=== PATIENT | female | born 1955 | race Two or more races ===

== ENCOUNTER 2018-08-13 02:21 | Inpatient (IN) | payer MEDICAID, OTHER ==
[~2018-08-13] VITALS: Ht 165.1 cm; Wt 60.8 kg
[2018-08-13] VITALS (17 sets, daily range): BP systolic 116–180; BP diastolic 45–88
[2018-08-13] MEDS ORDERED: SODIUM CHLORIDE 0.9% 1,000 ML IVB ONE (02:30)
[2018-08-13] MEDS ORDERED: LORazepam 2MG/ML-1ML VIAL IV ONE (02:30)
[2018-08-13] MEDS ORDERED: InsuLIN REG 1unit/0.01ml Soln (100units/ml) ONE ×2 (03:12→11:02)
[2018-08-13] MEDS ORDERED: LEVETIRACETAM INJ 1,000 MG in D5W 5% 100 ML IV ONE (03:15)
[2018-08-13] MEDS ORDERED: LEVETIRACETAM 500 MG/5ML INJ IV ONE (03:21)
[2018-08-13] MEDS ORDERED: InsuLIN REG 1unit/0.01ml Soln (100units/ml) IV ONE (03:30)
[2018-08-13 03:33] LABS: Basophils # (auto) 0.1 uL; Eosinophils # (auto) 0 uL; Hemoglobin 9.5 g/dL (12.2-16.2); Red Cell Distribution Width 14.2 % (11.8-14.3)
[2018-08-13 03:34] LABS: Basophils % (auto) 0.9 % (0.0-2.0); Eosinophils % (auto) 0.2 % (0.0-7.0); Hematocrit 33.7 % (36.0-46.0); Lymphocytes # (auto) 1.6 uL; Mean Corpuscular Hemoglobin 31.7 pg (28.0-32.0); Mean Corpuscular Hgb Conc. 28.3 g/dL (32.0-36.0); Mean Corpuscular Volume 112.1 fL (80.0-100.0); Monocytes # (auto) 0.5 uL; Monocytes % (auto) 5.9 % (0.0-12.0); Neutrophils # (auto) 6.1 uL; Platelet Count (auto) 286 10^3/uL (140-450); Red Blood Cells 3.01 10^6/uL (4.0-5.20); White Blood Cell 8.3 10^3/uL (4.4-10.8)
[2018-08-13] MEDS ORDERED: SODIUM CHLORIDE 0.9% 1,000 ML IV ONE ×2 (03:45→04:30)
[2018-08-13] MEDS ORDERED: InsuLIN R (HUMAN) 100 UNITS in SODIUM CHL 0.9% 99 ML IV SCH ×7 (03:49→12:03)
[2018-08-13 03:52] LABS: Alanine Aminotransferase 33 U/L (13-56); Albumin 2.1 g/dL (3.4-5.0); Anion Gap 26 (5-15); Aspartate Aminotransferase 28 U/L (15-37); BUN/Creatinine Ratio 14.3; Blood Alcohol < 3.0 mg/dL (0-5); Blood Urea Nitrogen 40 mg/dL (7-18); Calcium 8.3 mg/dL (8.5-10.1); Chloride 86 mmol/L (98-107); GFR African American 22 mL/min; GFR Non-African American 18 mL/min; Magnesium 2.3 mg/dL (1.6-2.6); Potassium 5.5 mmol/L (3.5-5.1); Sodium 120 mmol/L (136-145)
[2018-08-13] MEDS ORDERED: DEXTROSE (50%) 50ML SYRG IV PRN ×4 (04:00→15:30)
[2018-08-13 04:06] LABS: INR 0.87 (0.9-1.15); Partial Thromboplastin Time 28.5 sec (23.78-33.04); Prothrombin Time 9.4 sec (9.27-12.13)
[2018-08-13 04:26] LABS: Alcohol, Urine < 3.0 mg/dL (0-5); Amphetamine Screen, Urine NEGATIVE (NEGATIVE); Barbiturate Scree,Urine NEGATIVE (NEGATIVE); Benzodiazephine Screen, Urine NEGATIVE (NEGATIVE); Cannabinoid Screen, Urine NEGATIVE (NEGATIVE); Cocaine Screen, Urine NEGATIVE (NEGATIVE); Opiate Scree,Urine NEGATIVE (NEGATIVE); Phencyclidine Screen, Urine NEGATIVE (NEGATIVE)
[2018-08-13 04:27] LABS: Carbon Dioxide 8 mmol/L (21-32)
[2018-08-13 04:28] LABS: Alkaline Phosphatase 130 U/L (45-117); Bilirubin, Total 0.4 mg/dL (0.2-1.0); Glucose 1422 mg/dL (74-106); Total Protein 6.2 g/dL (6.4-8.2)
[2018-08-13 04:45] LABS: Urine Bacteria FEW /hpf (None Seen); Urine Blood 1+ /uL (Negative); Urine Specific Gravity 1.018 (1.001-1.035); Urine WBC 1 /hpf (0 - 5)
[2018-08-13] MEDS: ACCU-CHEK COMFORT CURVE STRIP VI SCH ×11 (04:56→23:47)
[2018-08-13] MEDS ORDERED: ACETAMINOPHEN 500 MG TAB PO PRN (07:00)
[2018-08-13] MEDS ORDERED: MORPHINE SULFATE 4 MG/ML SYR/VIAL IV PRN (07:00)
[2018-08-13] MEDS ORDERED: ONDANSETRON HCL 4 MG/2 ML VIAL IV PRN (07:00)
[2018-08-13] MEDS ORDERED: LORazepam 2MG/ML-1ML VIAL IV PRN (07:00)
[2018-08-13] MEDS ORDERED: HYDROcodone-ACET 5/325MG TAB PO PRN (07:00)
[2018-08-13 09:25] LABS: Eosinophils # (auto) 0 uL; Hemoglobin 8.1 g/dL (12.2-16.2); Lymphocytes # (auto) 1.1 uL; Monocytes # (auto) 0.4 uL; Red Cell Distribution Width 12.9 % (11.8-14.3)
[2018-08-13 09:26] LABS: Basophils # (auto) 0.1 uL; Basophils % (auto) 0.7 % (0.0-2.0); Hematocrit 24.1 % (36.0-46.0); Lymphocytes % (auto) 14.8 % (10.0-50.0); Mean Corpuscular Hemoglobin 32.1 pg (28.0-32.0); Mean Corpuscular Hgb Conc. 33.4 g/dL (32.0-36.0); Mean Corpuscular Volume 95.9 fL (80.0-100.0); Monocytes % (auto) 5.3 % (0.0-12.0); Neutrophils # (auto) 5.8 uL; Neutrophils % (auto) 79.2 % (37.0-80.0); Platelet Count (auto) 204 10^3/uL (140-450); Red Blood Cells 2.51 10^6/uL (4.0-5.20); White Blood Cell 7.3 10^3/uL (4.4-10.8)
[2018-08-13 10:06] LABS: BUN/Creatinine Ratio 13.8; Calcium 7.6 mg/dL (8.5-10.1); Potassium 3.4 mmol/L (3.5-5.1)
[2018-08-13] MEDS ORDERED: SODIUM CHLORIDE 0.9% 1,000 ML IV SCH ×2 (10:46→12:46)
[2018-08-13 14:44] LABS: BUN/Creatinine Ratio 15.9; Calcium 7.9 mg/dL (8.5-10.1); Potassium 3.3 mmol/L (3.5-5.1)
[2018-08-13] MEDS ORDERED: POTASSIUM CHL 20MEQ/100ML 100 ML IV ONE (15:30)
[2018-08-13] MEDS ORDERED: INSULIN LANTUS (GLARGINE) 1 /0.01ml (100units/ml) SC ONE (15:30)
[2018-08-13] MEDS: SODIUM CHLORIDE 0.9% 1,000 ML IV SCH (15:55)
[2018-08-13] MEDS: InsuLIN REG 1unit/0.01ml Soln (100units/ml) SC SCH ×3 (16:00→23:47)
[2018-08-13] MEDS ORDERED: ATOR1TAB PO (16:40)
[2018-08-13] MEDS ORDERED: TRAM-711 PO (16:40)
[2018-08-13] MEDS ORDERED: ASPI81CH43 PO (16:40)
[2018-08-13] MEDS ORDERED: [UNRECOGNIZED DRUG - CODE] SL (16:40)
[2018-08-13] MEDS ORDERED: ONDA-155 PO (16:40)
[2018-08-13] MEDS ORDERED: METH750T3 PO (16:40)
[2018-08-13] MEDS ORDERED: FURO20TA3 PO (16:40)
[2018-08-13] MEDS ORDERED: PRO10T PO (16:40)
[2018-08-13] MEDS ORDERED: IBUP600T27 PO (16:40)
[2018-08-13] MEDS ORDERED: HYDR12.56 PO (16:40)
[2018-08-13] MEDS ORDERED: SITA100T7 PO (16:40)
[2018-08-13] MEDS ORDERED: OME20T PO (16:40)
[2018-08-13] MEDS ORDERED: CHOL20007 PO (16:40)
[2018-08-13] MEDS ORDERED: MECL1TAB42 PO (16:40)
[2018-08-13] MEDS ORDERED: GABA300C11 PO (16:40)
[2018-08-13] MEDS ORDERED: CYAN50008 PO (16:40)
[2018-08-13] MEDS ORDERED: METO10TA3 PO (16:40)
[2018-08-13] MEDS ORDERED: FER325T PO (16:40)
[2018-08-13] MEDS ORDERED: LISI10TA6 PO (16:40)
[2018-08-13] MEDS ORDERED: DOCU-94 PO (16:40)
[2018-08-13] MEDS ORDERED: LISINOPRIL 10 MG TAB PO ONE (19:00)
[2018-08-13] MEDS: LEVETIRACETAM INJ 1,000 MG in D5W 5% 100 ML IV SCH (22:04)
[2018-08-13 22:36] LABS: BUN/Creatinine Ratio 15.6; Calcium 7.8 mg/dL (8.5-10.1); Potassium 3.8 mmol/L (3.5-5.1)
[2018-08-14] MEDS ORDERED: cloNIDine HCL 0.1 MG TAB PO PRN (00:30)
[2018-08-14] MEDS: ACCU-CHEK COMFORT CURVE STRIP VI SCH ×5 (03:34→20:10)
[2018-08-14] MEDS: InsuLIN REG 1unit/0.01ml Soln (100units/ml) SC SCH ×5 (03:34→20:00)
[2018-08-14] MEDS: SODIUM CHLORIDE 0.9% 1,000 ML IV SCH ×2 (04:35→18:10)
[2018-08-14 05:00] VITALS: BP 120/61
[2018-08-14 07:51] LABS: Basophils # (auto) 0 uL; Basophils % (auto) 0.2 % (0.0-2.0); Eosinophils # (auto) 0.1 uL; Hematocrit 24.6 % (36.0-46.0); Hemoglobin 8.4 g/dL (12.2-16.2); Neutrophils % (auto) 62.7 % (37.0-80.0); Red Blood Cells 2.65 10^6/uL (4.0-5.20); Red Cell Distribution Width 13.5 % (11.8-14.3)
[2018-08-14 07:54] LABS: Eosinophils % (auto) 1.1 % (0.0-7.0); Lymphocytes # (auto) 2.5 uL; Lymphocytes % (auto) 30.1 % (10.0-50.0); Mean Corpuscular Hemoglobin 31.8 pg (28.0-32.0); Mean Corpuscular Hgb Conc. 34.2 g/dL (32.0-36.0); Mean Corpuscular Volume 93.1 fL (80.0-100.0); Monocytes # (auto) 0.5 uL; Monocytes % (auto) 5.9 % (0.0-12.0); Neutrophils # (auto) 5.2 uL; Platelet Count (auto) 212 10^3/uL (140-450); White Blood Cell 8.2 10^3/uL (4.4-10.8)
[2018-08-14 08:00] VITALS: BP 106/49
[2018-08-14 08:11] LABS: Albumin 1.5 g/dL (3.4-5.0); Potassium 3.5 mmol/L (3.5-5.1)
[2018-08-14 08:16] LABS: BUN/Creatinine Ratio 14.9; Bilirubin, Total 0.2 mg/dL (0.2-1.0); Total Protein 4.6 g/dL (6.4-8.2)
[2018-08-14] MEDS: LISINOPRIL 10 MG TAB PO SCH (10:22)
[2018-08-14] MEDS: LEVETIRACETAM INJ 1,000 MG in D5W 5% 100 ML IV SCH ×3 (10:30→22:36)
[2018-08-14 10:54] LABS: BUN/Creatinine Ratio 13.8; Calcium 7.8 mg/dL (8.5-10.1); Potassium 3.8 mmol/L (3.5-5.1)
[2018-08-14 12:42] VITALS: BP 150/71
[2018-08-14] MEDS ORDERED: LORazepam 2MG/ML-1ML VIAL IV ONE (13:30)
[2018-08-14] MEDS ORDERED: MECL-87 PO (13:39)
[2018-08-14] MEDS ORDERED: DOCU100T15 PO (13:41)
[2018-08-14 16:41] VITALS: BP 135/71
[2018-08-14 18:01] LABS: BUN/Creatinine Ratio 15.4; Calcium 7.8 mg/dL (8.5-10.1); Potassium 3.6 mmol/L (3.5-5.1)
[2018-08-14 22:00] VITALS: BP 134/72
[2018-08-15] MEDS: InsuLIN REG 1unit/0.01ml Soln (100units/ml) SC SCH ×4 (00:12→14:25)
[2018-08-15] MEDS: ACCU-CHEK COMFORT CURVE STRIP VI SCH ×4 (00:12→12:32)
[2018-08-15 04:59] VITALS: BP 142/65
[2018-08-15 05:42] LABS: Basophils # (auto) 0 uL; Basophils % (auto) 0.3 % (0.0-2.0); Eosinophils # (auto) 0.1 uL; Eosinophils % (auto) 1.7 % (0.0-7.0); Hematocrit 24.9 % (36.0-46.0); Hemoglobin 8.8 g/dL (12.2-16.2); Lymphocytes # (auto) 1.6 uL; Lymphocytes % (auto) 25.5 % (10.0-50.0); Mean Corpuscular Hemoglobin 33.3 pg (28.0-32.0); Mean Corpuscular Hgb Conc. 35.4 g/dL (32.0-36.0); Monocytes # (auto) 0.4 uL; Neutrophils # (auto) 4.3 uL; Neutrophils % (auto) 66.5 % (37.0-80.0); Platelet Count (auto) 232 10^3/uL (140-450); Red Blood Cells 2.65 10^6/uL (4.0-5.20); Red Cell Distribution Width 13.5 % (11.8-14.3); White Blood Cell 6.4 10^3/uL (4.4-10.8)
[2018-08-15 06:01] LABS: Potassium 3.5 mmol/L (3.5-5.1)
[2018-08-15 06:08] LABS: Albumin 1.5 g/dL (3.4-5.0); BUN/Creatinine Ratio 16.4; Bilirubin, Total 0.2 mg/dL (0.2-1.0); Calcium 7.5 mg/dL (8.5-10.1); Phosphorus 2.5 mg/dL (2.5-4.90); Total Protein 4.9 g/dL (6.4-8.2)
[2018-08-15 08:03] VITALS: BP 143/65
[2018-08-15] MEDS: LISINOPRIL 10 MG TAB PO SCH (10:54)
[2018-08-15] MEDS: LEVETIRACETAM INJ 1,000 MG in D5W 5% 100 ML IV SCH (11:30)
[2018-08-15 12:38] VITALS: BP 159/83
[2018-08-15 16:08] VITALS: BP 143/65
== END 2018-08-15 19:20 | disposition home or self-care (01) | DRG 53 ==
LOC: EDBD 02:21 → ER 02:21 → OVERFLOW 02:22 → ICU WEST 09:33 → TELE-WESTW 23:20
PROVIDERS: ADMIT Nurse Practitioner Family; ATTEND Internal Medicine
DX: G40.409 Other generalized epilepsy and epileptic syndromes, not intractable, without status epilepticus (principal); N17.0 Acute kidney failure with tubular necrosis; E11.10 Type 2 diabetes mellitus with ketoacidosis without coma; E44.0 Moderate protein-calorie malnutrition; E87.1 Hypo-osmolality and hyponatremia; I13.10 Hypertensive heart and chronic kidney disease without heart failure, with stage 1 through stage 4 chronic kidney disease, or unspecified chronic kidney disease; E11.22 Type 2 diabetes mellitus with diabetic chronic kidney disease; E11.21 Type 2 diabetes mellitus with diabetic nephropathy; N18.3 Chronic kidney disease, stage 3 (moderate); Z79.4 Long term (current) use of insulin; Z87.81 Personal history of (healed) traumatic fracture; Z79.899 Other long term (current) drug therapy; Z79.82 Long term (current) use of aspirin; Z68.22 Body mass index [BMI] 22.0-22.9, adult
CPT/HCPCS: 36415; 36600; 51702; 70450; 70551; 71045; 76775; 80048; 80053; 80307; 80320; 81001; 82010; 82140; 82306; 82805; 82962; 83036; 83735; 83880; 84100; 84443; 84550; 85025; 85610; 85730; 87081; 96361; 96365; 96367; 96375; 99291; 99292; G0378; J1815; J2405; J3480; J7060

== ENCOUNTER 2018-10-19 06:27 | Inpatient (IN) | payer MEDICAID ==
[~2018-10-19] VITALS: Ht 160 cm; Wt 56.6 kg
[~2018-10-19 06:27] MED LIST: ERGO1CAP23 PO; FER325T PO; FURO20TA PO; INSLANTI SC; LISI10TA6 PO; MECL-82 PO; TRAM-711 PO
[2018-10-19] MEDS ORDERED: LORazepam 2MG/ML-1ML VIAL ONE (06:39)
[2018-10-19] MEDS ORDERED: LORazepam 2MG/ML-1ML VIAL IV ONE ×2 (06:45→07:00)
[2018-10-19] MEDS ORDERED: MIDAZOLAM HCL 1MG/1ML-2 ML VIAL ONE (07:05)
[2018-10-19] MEDS ORDERED: SODIUM CHLORIDE 0.9% 1,000 ML IV ONE ×2 (07:07)
[2018-10-19] MEDS ORDERED: MIDAZOLAM HCL 1MG/1ML-2 ML VIAL IV ONE (07:15)
[2018-10-19] MEDS ORDERED: PROMETHAZINE HCL 25 MG/ML 1ML IV ONE (07:15)
[2018-10-19 07:18] LABS: Urine Bacteria FEW /hpf (None Seen); Urine Blood TRACE /uL (Negative); Urine Specific Gravity 1.011 (1.001-1.035); Urine WBC 1 /hpf (0 - 5)
[2018-10-19 07:29] LABS: Eosinophils # (auto) 0 uL; Eosinophils % (auto) 0.4 % (0.0-7.0); Hematocrit 28.6 % (36.0-46.0); Hemoglobin 8.4 g/dL (12.2-16.2); Lymphocytes # (auto) 0.7 uL; Monocytes # (auto) 0.3 uL
[2018-10-19 07:32] LABS: Basophils # (auto) 0 uL; Basophils % (auto) 0.3 % (0.0-2.0); Lymphocytes % (auto) 8.4 % (10.0-50.0); Mean Corpuscular Hemoglobin 31.8 pg (28.0-32.0); Mean Corpuscular Hgb Conc. 29.3 g/dL (32.0-36.0); Mean Corpuscular Volume 108.5 fL (80.0-100.0); Monocytes % (auto) 4.1 % (0.0-12.0); Neutrophils % (auto) 86.8 % (37.0-80.0); Platelet Count (auto) 353 10^3/uL (140-450); Red Blood Cells 2.64 10^6/uL (4.0-5.20); Red Cell Distribution Width 16.7 % (11.8-14.3)
[2018-10-19 07:47] LABS: Potassium 5.1 mmol/L (3.5-5.1)
[2018-10-19 07:48] LABS: Lactic Acid w/Reflex 5.3 mmol/L (0.4-2.0)
[2018-10-19 07:56] LABS: BUN/Creatinine Ratio 17.7; Bilirubin, Total 0.5 mg/dL (0.2-1.0); Total Protein 6.3 g/dL (6.4-8.2)
[2018-10-19] MEDS ORDERED: SODIUM CHLORIDE 0.9% 2,000 ML IV ONE (08:30)
[2018-10-19] MEDS ORDERED: cefTRIAXone 1GM/50ML D5W 50 ML IV ONE (09:00)
[2018-10-19] MEDS ORDERED: SODIUM BICARBONATE 8.4 % INJ 50ML VIAL IV ONE (09:00)
[2018-10-19] MEDS ORDERED: AZITHROMYCIN 500MG/ 250ML 250 ML IV ONE (09:00)
[2018-10-19] MEDS ORDERED: FUROSEMIDE 20 MG/2 ML VIAL IV ONE (09:00)
[2018-10-19] MEDS ORDERED: InsuLIN R (HUMAN) 100 UNITS in SODIUM CHL 0.9% 99 ML IV SCH (10:34)
[2018-10-19] MEDS ORDERED: ALBUTEROL SULF 2.5 MG/0.5ML(0.5%) NEB SOLN NEB PRN (10:45)
[2018-10-19] MEDS ORDERED: LACTULOSE 20Gm/30ML SOLN PO PRN (10:45)
[2018-10-19] MEDS ORDERED: LORazepam 2MG/ML-1ML VIAL IV PRN (10:45)
[2018-10-19] MEDS ORDERED: NITROGLYCERIN 0.4 MG SL TAB SL PRN (10:45)
[2018-10-19] MEDS ORDERED: LORazepam 0.5 MG TAB PO PRN (10:45)
[2018-10-19] MEDS ORDERED: DEXTROSE (50%) 50ML SYRG IV PRN (10:45)
[2018-10-19] MEDS: LISINOPRIL 10 MG TAB PO SCH (10:50)
[2018-10-19] MEDS ORDERED: LEVOFLOXACIN 500MG 100 ML IV ONE (11:00)
[2018-10-19 11:01] LABS: Amylase 18 U/L (25-115); Lipase 86 U/L (73-393)
[2018-10-19 11:14] LABS: Alcohol, Urine < 3.0 mg/dL (0-5); Amphetamine Screen, Urine NEGATIVE (NEGATIVE); Barbiturate Scree,Urine NEGATIVE (NEGATIVE); Benzodiazephine Screen, Urine NEGATIVE (NEGATIVE); Cannabinoid Screen, Urine NEGATIVE (NEGATIVE); Cocaine Screen, Urine NEGATIVE (NEGATIVE); Opiate Scree,Urine NEGATIVE (NEGATIVE); Phencyclidine Screen, Urine NEGATIVE (NEGATIVE)
[2018-10-19] MEDS: ACCU-CHEK COMFORT CURVE STRIP VI SCH ×8 (11:31→22:38)
[2018-10-19 11:33] LABS: BUN/Creatinine Ratio 19.9; Calcium 7.1 mg/dL (8.5-10.1); Potassium 4.8 mmol/L (3.5-5.1)
[2018-10-19] MEDS: SODIUM CHLORIDE 0.9% 1,000 ML IV SCH (17:30)
[2018-10-19 19:57] VITALS: BP 130/61
[2018-10-19 21:41] LABS: Potassium 3.3 mmol/L (3.5-5.1)
[2018-10-19 21:42] LABS: BUN/Creatinine Ratio 20.2; Calcium 7.4 mg/dL (8.5-10.1)
[2018-10-19] MEDS: CLINDAMYCIN 600MG IV 50 ML IV SCH (22:00)
[2018-10-19] MEDS: TEMAZEPAM 15 MG CAP PO PRN (22:45)
[2018-10-19] MEDS: HYDROcodone-ACET 5/325MG TAB PO PRN (22:45)
[2018-10-19 23:24] LABS: Anion Gap 12 (5-15); BUN/Creatinine Ratio 21.1; Blood Urea Nitrogen 44 mg/dL (7-18); Calcium 7.3 mg/dL (8.5-10.1); Carbon Dioxide 20 mmol/L (21-32); Chloride 106 mmol/L (98-107); GFR African American 31 mL/min; GFR Non-African American 25 mL/min; Glucose 316 mg/dL (74-106); Potassium 3.5 mmol/L (3.5-5.1); Sodium 138 mmol/L (136-145)
[2018-10-20] MEDS: ACCU-CHEK COMFORT CURVE STRIP VI SCH ×8 (00:20→21:03)
[2018-10-20] MEDS: SODIUM CHLORIDE 0.9% 1,000 ML IV SCH (02:36)
[2018-10-20] MEDS ORDERED: DEXTROSE 50% SYRINGE 50 ML IV ONE (05:01)
[2018-10-20] MEDS ORDERED: DEXTROSE (50%) 50ML SYRG IV ONE ×3 (05:30→07:45)
--- NOTE | 2018-10-20 05:30 | NUR ---
Respiratory note: HR 67, RR 13, POX 98%, BS ARE CLEAR. PRN [place] TX NOT INDICATED AT THIS TIME.PT INFORMED TO CALL IF FEELING SOB OR WHEEZING.
[2018-10-20] MEDS ORDERED: ACCU-CHEK COMFORT CURVE STRIP VI SCH (06:00)
[2018-10-20] MEDS: CLINDAMYCIN 600MG IV 50 ML IV SCH (06:19)
[2018-10-20] MEDS ORDERED: InsuLIN REG 1unit/0.01ml Soln (100units/ml) SC ONE (07:00)
[2018-10-20] MEDS ORDERED: DEXTROSE (50%) 50ML SYRG IV PRN (07:15)
[2018-10-20 07:38] LABS: Basophils # (auto) 0 uL; Eosinophils # (auto) 0.1 uL; Hemoglobin 7.6 g/dL (12.2-16.2); Monocytes # (auto) 0.6 uL; Neutrophils # (auto) 4.8 uL; Red Cell Distribution Width 16.1 % (11.8-14.3); White Blood Cell 6.8 10^3/uL (4.4-10.8)
[2018-10-20 07:40] LABS: Basophils % (auto) 0.3 % (0.0-2.0); Eosinophils % (auto) 2.1 % (0.0-7.0); Hematocrit 22.6 % (36.0-46.0); Lymphocytes # (auto) 1.2 uL; Lymphocytes % (auto) 18.3 % (10.0-50.0); Mean Corpuscular Hemoglobin 31.8 pg (28.0-32.0); Mean Corpuscular Hgb Conc. 33.5 g/dL (32.0-36.0); Mean Corpuscular Volume 94.7 fL (80.0-100.0); Neutrophils % (auto) 70.3 % (37.0-80.0); Nucleated Red Blood Cells % 0.1 %; Platelet Count (auto) 238 10^3/uL (140-450); Red Blood Cells 2.39 10^6/uL (4.0-5.20)
[2018-10-20] MEDS: D5W/SOD CHLO 0.9% 1,000 ML IV SCH ×2 (07:44→21:05)
[2018-10-20] MEDS: InsuLIN REG 1unit/0.01ml Soln (100units/ml) SC SCH ×5 (07:45→21:03)
[2018-10-20 07:48] LABS: Albumin 1.3 g/dL (3.4-5.0); Calcium 7.5 mg/dL (8.5-10.1); Potassium 3.1 mmol/L (3.5-5.1)
[2018-10-20 07:51] LABS: Bilirubin, Total 0.1 mg/dL (0.2-1.0); Total Protein 4.5 g/dL (6.4-8.2)
[2018-10-20] MEDS: ENOXAPARIN SOD 30 MG/0.3 ML SYRINGE SC SCH (09:52)
[2018-10-20] MEDS: LISINOPRIL 10 MG TAB PO SCH (09:52)
[2018-10-20] MEDS: PANTOPRAZOLE 40 MG TAB PO SCH (09:52)
[2018-10-20] MEDS ORDERED: LEVOFLOXACIN 500MG 100 ML IV SCH (10:00)
[2018-10-20] MEDS ORDERED: ALBUMIN 25% 100 ML IV ONE (12:00)
[2018-10-20] MEDS ORDERED: FUROSEMIDE 40 MG/4 ML VIAL IV ONE (12:45)
[2018-10-20] MEDS: POTASSIUM CHL 20MEQ/100ML 100 ML IV SCH ×2 (13:37→15:19)
[2018-10-20] MEDS: SODIUM FERR GLUC 62.5MG/5ML 125 MG in SODIUM CHL 0.9% 100 ML IV SCH (13:43)
[2018-10-20 14:43] LABS: Lactic Acid w/Reflex 2.1 mmol/L (0.4-2.0)
[2018-10-20 17:13] LABS: Lactic Acid w/Reflex 2.1 mmol/L (0.4-2.0)
[2018-10-20] MEDS: ALBUMIN 25% 100 ML IV SCH (18:14)
--- NOTE | 2018-10-20 19:15 | NUR ---
PRN MED NEB ASSESSMENT. PT DENIES SOB. NO DISTRESS NOTED AT THIS TIME. POX 100% ON 2L NC HR 68 RR 18 BS ARE CLEAR. TX NOT GIVEN.
[2018-10-20 20:00] VITALS: BP 136/65
--- NOTE | 2018-10-20 20:00 | NUR ---
Telemetry admit from ER MARTA ROONEY admitted to Telemetry unit. Patient oriented to DARNELL PANDYA OCA, primary RN, unit, room, bed, and unit policies regarding patient care and visiting hours. Patient now on continuous telemetry monitoring, tele box #8 and telemetry reading on arrival to unit is sinus rhythm. Patient placed on bedside oxygen, weighed by bedscale and encouraged to call if they need something. All questions and concerns addressed, patient verbalized understanding. at bedside. Bed in lowest locked position, call light within reach, side rails up x2, seizure precautions in place, fall precautions in place. Will continue to monitor q1hr and PRN.
--- NOTE | 2018-10-20 20:45 | NUR ---
MRSA swab sent to lab.
[2018-10-20 21:30] VITALS: BP 136/65
[2018-10-21] MEDS: ACCU-CHEK COMFORT CURVE STRIP VI SCH ×6 (00:14→20:11)
[2018-10-21] MEDS: InsuLIN REG 1unit/0.01ml Soln (100units/ml) SC SCH ×6 (00:14→20:12)
[2018-10-21] MEDS: TEMAZEPAM 15 MG CAP PO PRN (00:20)
[2018-10-21] MEDS ORDERED: GABA300C PO (01:36)
[2018-10-21] MEDS ORDERED: TRAM50TA2 PO (01:36)
[2018-10-21] MEDS: ALBUMIN 25% 100 ML IV SCH ×2 (02:49→10:59)
[2018-10-21 05:00] VITALS: BP 164/70
--- NOTE | 2018-10-21 05:00 | NUR ---
Hospitalist paged for increased BP of 164/70 HR 88. Awaiting call back. Continue care.
--- NOTE | 2018-10-21 06:07 | NUR ---
Hospitalist called back JUDI Thomas updated on patient status. Per AEROPHYSICS ENGINEER Domitila Thomas give 1000 lisinopril on eMAR right now. Continue care
[2018-10-21] MEDS: LISINOPRIL 10 MG TAB PO SCH (06:15)
--- NOTE | 2018-10-21 07:30 | NUR ---
Opening Shift Note Assumed care of patient, asleep on bed, resting comfortably. No S/S of distress/SOB or pain. call light within reach, 2 side rails up and bed in lowest position, will continue to monitor for changes Q1hr and PRN.
--- NOTE | 2018-10-21 08:23 | NUR ---
Respiratory note: ASSESSED PT FOR PRN TX PT WAS AWAKE AND ALERT NO RESP DISTRESS NOTED. HR 96, RR 18, SPO2 99% ON 2L N/C. PT KNOWS TO HAVE RT PAGED IF TX IS NEEDED.
--- NOTE | 2018-10-21 09:15 | NUR ---
PT SEEN BY DR. LA
[2018-10-21] MEDS ORDERED: FUROSEMIDE 40 MG/4 ML VIAL IV SCH (10:00)
[2018-10-21] MEDS: PANTOPRAZOLE 40 MG TAB PO SCH (10:16)
[2018-10-21] MEDS: ENOXAPARIN SOD 30 MG/0.3 ML SYRINGE SC SCH (10:16)
[2018-10-21] MEDS: CHOLECALCIFEROL (VITD3) 1,000 UNIT TAB PO SCH (10:17)
[2018-10-21] MEDS: D5W/SOD CHLO 0.9% 1,000 ML IV SCH (10:25)
[2018-10-21] MEDS: SODIUM FERR GLUC 62.5MG/5ML 125 MG in SODIUM CHL 0.9% 100 ML IV SCH (11:52)
[2018-10-21 12:00] VITALS: BP 148/65
[2018-10-21 12:41] VITALS: BP 156/70
--- NOTE | 2018-10-21 15:35 | NUR ---
PT SEEN BY DR. OBANDO HE ORDERED TO DISCONTINUE BROCK CATHETER.
--- NOTE | 2018-10-21 15:45 | NUR ---
Douglas catheter dc'd Order to discontinue douglas catheter. Douglas dc'd with clean technique following deflation of balloon. Patient tolerated well with no complaints of pain. Continue care.
[2018-10-21 16:54] VITALS: BP 152/70
[2018-10-21] MEDS: FUROSEMIDE 40 MG/4 ML VIAL IV SCH (17:59)
--- NOTE | 2018-10-21 19:30 | NUR ---
Opening Shift Note Assumed care of patient, awake and alert. No S/S of distress/SOB or pain. Instructed on POC and to call for assist PRN. Bed in lowest locked position, call light within reach, side rails up x2, fall precautions in place. Will continue to monitor for changes Q1hr and PRN.
[2018-10-21 22:00] VITALS: BP 161/66
--- NOTE | 2018-10-21 22:15 | NUR ---
Hospitalist paged for BP of 161/66 HR 103. Awaiting call back.
--- NOTE | 2018-10-21 22:50 | NUR ---
Hospitalist called back CONTROL SYSTEMS DESIGNER Domitila Thomas updated on patient's status. New orders received for one time order of lisinopril 10 mg PO. Will continue care.
[2018-10-21] MEDS ORDERED: LISINOPRIL 10 MG TAB PO ONE (23:00)
[2018-10-21] MEDS: traMADol HCL 50 MG TAB PO PRN (23:07)
--- NOTE | 2018-10-21 23:14 | NUR ---
Respiratory note: PT ASSESSED FOR PRN MED NEB TX. PT DENIES ANY SOB. POX IS 96 ON R/A, HR 85, RR 18. NO INDICATION FOR PRN MED NEB TX. PT INFORMED TO HAVE RT PAGED IF NEEDED.
[2018-10-22] MEDS: InsuLIN REG 1unit/0.01ml Soln (100units/ml) SC SCH ×6 (00:30→20:21)
[2018-10-22] MEDS: ACCU-CHEK COMFORT CURVE STRIP VI SCH ×7 (00:30→23:59)
[2018-10-22] MEDS ORDERED: LISI10TA6 PO (04:16)
[2018-10-22 05:00] VITALS: BP 158/83
--- NOTE | 2018-10-22 05:02 | NUR ---
Hospitalist paged for BP of 158/83 HR 88, awaiting call back.
[2018-10-22] MEDS: FUROSEMIDE 40 MG/4 ML VIAL IV SCH ×2 (05:51→17:57)
[2018-10-22 06:54] LABS: Basophils # (auto) 0 uL; Monocytes # (auto) 0.8 uL; Neutrophils # (auto) 3.8 uL
[2018-10-22 06:57] LABS: Basophils % (auto) 0.1 % (0.0-2.0); Eosinophils # (auto) 0.1 uL; Eosinophils % (auto) 2.3 % (0.0-7.0); Hematocrit 23.3 % (36.0-46.0); Hemoglobin 7.9 g/dL (12.2-16.2); Lymphocytes # (auto) 1.2 uL; Lymphocytes % (auto) 20.7 % (10.0-50.0); Mean Corpuscular Hemoglobin 32.4 pg (28.0-32.0); Mean Corpuscular Hgb Conc. 33.7 g/dL (32.0-36.0); Mean Corpuscular Volume 96.1 fL (80.0-100.0); Monocytes % (auto) 13.2 % (0.0-12.0); Neutrophils % (auto) 63.7 % (37.0-80.0); Platelet Count (auto) 260 10^3/uL (140-450); Red Blood Cells 2.43 10^6/uL (4.0-5.20); Red Cell Distribution Width 16.8 % (11.8-14.3)
[2018-10-22 07:18] LABS: Potassium 3.6 mmol/L (3.5-5.1)
[2018-10-22 07:28] LABS: Albumin 2.6 g/dL (3.4-5.0); Bilirubin, Total 0.3 mg/dL (0.2-1.0); Magnesium 2.2 mg/dL (1.6-2.6); Total Protein 5.8 g/dL (6.4-8.2)
[2018-10-22] MEDS: LISINOPRIL 10 MG TAB PO SCH (07:49)
[2018-10-22 08:33] VITALS: BP 173/77
--- NOTE | 2018-10-22 09:00 | NUR ---
Respiratory note: PRN MEDNEB CHECK. PT IN NO RESPIRATORY DISTRESS. TX NOT INDICATED AT THIS TIME. SPO2 92% ON RA HR 92 RR 20 B/S CLEAR/DIM. PT AWARE TO CALL RN AND HAVE THEM PAGE RT IF THEY BECOME SOB. RN AT BEDSIDE.
[2018-10-22] MEDS: CHOLECALCIFEROL (VITD3) 1,000 UNIT TAB PO SCH (09:46)
[2018-10-22] MEDS: ENOXAPARIN SOD 30 MG/0.3 ML SYRINGE SC SCH (09:46)
[2018-10-22] MEDS: PANTOPRAZOLE 40 MG TAB PO SCH (09:46)
[2018-10-22] MEDS: METOPROLOL TARTRATE 25 MG TAB PO SCH ×2 (09:52→22:31)
--- NOTE | 2018-10-22 11:38 | NUR ---
DR. LA AT BEDSIDE MADE AWARE OF THE ELEVATED BLOOD PRESSURE AND BLOOD SUGAR, ORDERED CLONIDINE .1MG PO Q8HRS. ORDER READ BACK AND VERIFIED.
[2018-10-22] MEDS: SODIUM FERR GLUC 62.5MG/5ML 125 MG in SODIUM CHL 0.9% 100 ML IV SCH (12:47)
[2018-10-22 13:00] VITALS: BP 188/84
--- NOTE | 2018-10-22 14:34 | NUR ---
Nutrition Assessment Notes please see attached link for complete assessment Est. Needs BW [id number] kcal (23-25 kcal/kgBW), 57-72 gms pro (0.8-1.0 gms/kgBW r/t elev RFT). Will continue to monitor pertinent labs and reassess nutrient need prn Addendum: 10/22/18 at [address] Amended: Links added.
[2018-10-22] MEDS: cloNIDine HCL 0.1 MG TAB PO PRN (15:59)
[2018-10-22 17:00] VITALS: BP 177/78
--- NOTE | 2018-10-22 17:14 | NUR ---
ELEVATED BP BP 173/69 MMHG AFTER CLONIDINE WAS GIVEN, SPOKE WITH HOSPITALIST SUSSY, HE ORDERED LABETALOL 10MG Q4HRS PRN IV FOR SB>150MMHG AND INCREASE LISINOPRIL TO 20MG DAILY.
[2018-10-22] MEDS ORDERED: LABETALOL HCL 5 MG/ML ML 20ML VIAL IV PRN (17:30)
--- NOTE | 2018-10-22 17:50 | NUR ---
LABETALOL NOT AVAILABLE HOSPITALIST CY MADE AWARE AND ORDERED HYDRALAZINE, ORDER READ BACK AND VERIFIED.
[2018-10-22] MEDS: hydrALAZINE HCL 20 MG/ML VL IV PRN (18:31)
--- NOTE | 2018-10-22 19:30 | NUR ---
Rounds Patient in bathroom, patient tele box disconnected and placed on bedside table. N/C on chair. Instructed patient to pull red cord, Call light cord, in bathroom when done so this RN can assist patient back to bed.
--- NOTE | 2018-10-22 19:35 | NUR ---
Opening Shift Note Assumed care of patient, awake and alert X4. Family at bedside. Patient sitting in chair. Refusing to go in bed. Patient educated on importance of bed, also patient has history of seizures. Patient verbalized understanding continued to refuse. Patient also educated on keeping tele box on while going to bathroom patient stated, "It will fall in toilet." Patient not wearing gown offered to place gown on patient and put tele box in pocket patient refused. Despite continued education patient continues to refuse. No S/S of distress/SOB on 2L N/C, provided long tubing that reaches to bathroom. Reports BLE pain, will administer medication see eMAR. Instructed on POC and to call for assist PRN. call light within reach, Will continue to monitor for changes Q1hr and PRN.
[2018-10-22] MEDS: traMADol HCL 50 MG TAB PO PRN (20:17)
[2018-10-22] MEDS: PROMETHAZINE HCL 25 MG/ML 1ML IV PRN (20:17)
[2018-10-22 22:00] VITALS: BP 139/91
[2018-10-23] VITALS (7 sets, daily range): BP systolic 140–154; BP diastolic 61–72
--- NOTE | 2018-10-23 | NUR ---
Rounds Patient sleeping in chair, respirations even and unlabored, no S/S of distress or SOB. Feet elevated on chair. Will continue to monitor
[2018-10-23] MEDS: InsuLIN REG 1unit/0.01ml Soln (100units/ml) SC SCH ×6 (00:20→20:37)
--- NOTE | 2018-10-23 03:31 | NUR ---
Rounds Patient sleeping in chair, respirations even and unlabored, no S/S of distress or SOB. . Will continue to monitor.
[2018-10-23] MEDS: ACCU-CHEK COMFORT CURVE STRIP VI SCH ×5 (04:18→20:37)
[2018-10-23] MEDS: FUROSEMIDE 40 MG/4 ML VIAL IV SCH ×2 (06:27→18:30)
[2018-10-23 06:48] LABS: Basophils # (auto) 0 uL; Basophils % (auto) 0.4 % (0.0-2.0); Eosinophils # (auto) 0.1 uL; Hemoglobin 7.2 g/dL (12.2-16.2); Monocytes # (auto) 0.7 uL
[2018-10-23 06:50] LABS: Eosinophils % (auto) 2.4 % (0.0-7.0); Hematocrit 21.6 % (36.0-46.0); Lymphocytes # (auto) 1.6 uL; Mean Corpuscular Hemoglobin 32.6 pg (28.0-32.0); Mean Corpuscular Hgb Conc. 33.4 g/dL (32.0-36.0); Mean Corpuscular Volume 97.7 fL (80.0-100.0); Monocytes % (auto) 13.6 % (0.0-12.0); Neutrophils # (auto) 2.5 uL; Neutrophils % (auto) 50.6 % (37.0-80.0); Platelet Count (auto) 208 10^3/uL (140-450); Red Blood Cells 2.21 10^6/uL (4.0-5.20); Red Cell Distribution Width 16.2 % (11.8-14.3)
[2018-10-23 07:00] LABS: Albumin 2.2 g/dL (3.4-5.0); Calcium 7.8 mg/dL (8.5-10.1); Potassium 3.8 mmol/L (3.5-5.1)
[2018-10-23 07:04] LABS: BUN/Creatinine Ratio 18.6; Bilirubin, Total 0.3 mg/dL (0.2-1.0); Total Protein 5.2 g/dL (6.4-8.2)
--- NOTE | 2018-10-23 07:35 | NUR ---
Opening Shift Note Assumed care of patient, awake and alert. Currently sitting up in chair, No S/S of distress/SOB or pain, on 2L via NC. Instructed on POC and to call for assist PRN, call light within reach, will continue to monitor for changes Q1hr and PRN.
[2018-10-23 08:06] LABS: Immunoglobulin G, Serum 663 mg/dL (700-1600)
--- NOTE | 2018-10-23 10:33 | NUR ---
Respiratory note: PRN MED NEB TX NOT INDICATED AT THIS TIME. PATIENT STATES BREATHING COMFORTABLE NO SS OF SOB OR RESP DISTRESS NOTED, SPO2 98% @ 2 L NC, HR 71, RR 16, B/S INSPIRATORY CRACKLES NOTED DEWAYNE T/O.
[2018-10-23] MEDS: CHOLECALCIFEROL (VITD3) 1,000 UNIT TAB PO SCH (10:36)
[2018-10-23] MEDS: PANTOPRAZOLE 40 MG TAB PO SCH (10:36)
[2018-10-23] MEDS: ENOXAPARIN SOD 30 MG/0.3 ML SYRINGE SC SCH (10:37)
[2018-10-23] MEDS: METOPROLOL TARTRATE 50 MG TAB PO SCH ×2 (10:37→21:49)
[2018-10-23] MEDS: LISINOPRIL 20 MG TAB PO SCH (10:37)
[2018-10-23] MEDS: traMADol HCL 50 MG TAB PO PRN ×2 (10:38→23:54)
--- NOTE | 2018-10-23 11:35 | NUR ---
MD DR LA AT BEDSIDE, DISCUSSING POC WITH PT, PT AXOX4, CONT CARE
[2018-10-23] MEDS ORDERED: FUROSEMIDE 100 MG/10ML VIAL IV ONE (11:45)
[2018-10-23] MEDS: SODIUM FERR GLUC 62.5MG/5ML 125 MG in SODIUM CHL 0.9% 100 ML IV SCH (12:16)
--- NOTE | 2018-10-23 20:00 | NUR ---
Opening Shift Note Assumed care of patient, awake and alert, oriented x4. No S/S of distress/SOB or pain. Instructed on POC, verbalized understanding and to call for assist PRN, will continue to monitor for changes Q1hr and PRN. Side rails up x2, bed in lowest locked position, non skid socks on. Continue care.
--- NOTE | 2018-10-23 22:14 | NUR ---
PT IS ON 2L NC, SLEEPING, NO SOB NOTED. PRN TX NOT INDICATED
[2018-10-24] MEDS: InsuLIN REG 1unit/0.01ml Soln (100units/ml) SC SCH ×7 (00:12→23:24)
[2018-10-24] MEDS: ACCU-CHEK COMFORT CURVE STRIP VI SCH ×7 (00:13→23:23)
[2018-10-24 05:00] VITALS: BP 160/68
[2018-10-24 05:24] LABS: Basophils # (auto) 0 uL; Eosinophils # (auto) 0.2 uL; Hemoglobin 7.1 g/dL (12.2-16.2); Lymphocytes # (auto) 1.6 uL; Neutrophils % (auto) 56.5 % (37.0-80.0)
[2018-10-24 05:28] LABS: Basophils % (auto) 0.4 % (0.0-2.0); Eosinophils % (auto) 2.9 % (0.0-7.0); Hematocrit 21.4 % (36.0-46.0); Lymphocytes % (auto) 27.4 % (10.0-50.0); Mean Corpuscular Hemoglobin 32.5 pg (28.0-32.0); Mean Corpuscular Volume 98.6 fL (80.0-100.0); Monocytes # (auto) 0.8 uL; Monocytes % (auto) 12.8 % (0.0-12.0); Neutrophils # (auto) 3.3 uL; Nucleated Red Blood Cells % 0.1 %; Platelet Count (auto) 223 10^3/uL (140-450); Red Blood Cells 2.17 10^6/uL (4.0-5.20); Red Cell Distribution Width 16.7 % (11.8-14.3); White Blood Cell 5.9 10^3/uL (4.4-10.8)
[2018-10-24 05:45] LABS: Albumin 2.3 g/dL (3.4-5.0); BUN/Creatinine Ratio 18.3; Potassium 4.1 mmol/L (3.5-5.1)
[2018-10-24 05:47] LABS: Bilirubin, Total 0.2 mg/dL (0.2-1.0); Total Protein 5.6 g/dL (6.4-8.2)
[2018-10-24] MEDS: FUROSEMIDE 40 MG/4 ML VIAL IV SCH ×2 (05:56→18:36)
--- NOTE | 2018-10-24 07:25 | NUR ---
OPENING SHIFT PATIENT AWAKE AND ALERT, ORIENTED X4. PATIENT SITTING UP IN CHAIR, IN HER OWN CLOTHING. NO S/S OF DISTRESS, SOB, OR PAIN. PATIENT IS ON 2.5 L NASAL CANNULA. PATIENT EDUCATED ON SEIZURE PRECAUTIONS AND FALL SAFETY PRECAUTIONS. PATIENT VERBALIZED UNDERSTANDING. DISCUSSED POC WITH PATIENT, PATIENT VERBALIZED UNDERSTANDING. WILL CONTINUE TO MONITOR Q1 HOUR AND PRN.
--- NOTE | 2018-10-24 08:05 | NUR ---
Respiratory note: ASSESSED PATIENT FOR PRN BREATHING TX. PATIENT WAS AWAKE AND ALERT, PATIENT STATES THAT SHE WOULD LIKE A BREATHING TX, SHE FEELS THAT SHE WOULD BENEFIT FROM IT. PATIENT'S BREATH SOUNDS ARE CLEAR, RR 18, HR 66. ELDA CABALLERO AT BEDSIDE WITH PATIENT. PATIENT IS AWARE TO HAVE RT PAGED IF BREATHING TX IS NEEDED. ELDA CABALLERO IS AWARE. WILL CONTINUE TO MONITOR.
[2018-10-24 08:30] VITALS: BP 122/66
--- NOTE | 2018-10-24 09:38 | NUR ---
DR. BESSIE Sanchez AT BEDSIDE DISCUSSING POC. PATIENT VERBALIZED UNDERSTANDING. WILL FOLLOW M.Susie. ORDERS
--- NOTE | 2018-10-24 10:52 | NUR ---
PATIENT REFUSES CT SCAN PATIENT STATE'S, "IT'S TOO CLOSE TO MY HEAD, YOU'LL HAVE TO KNOCK ME OUT COMPLETELY." PATIENT EDUCATED OF THE RISKS OF REFUSAL AND BENEFITS OF SCAN. PATIENT VERBALIZED UNDERSTANDING. PATIENT OFFERED ANTI-ANXIETY MEDICATION FOR SCAN. PATIENT REFUSED TREATMENT. Juan Alberto MADE AWARE OF SITUATION
[2018-10-24] MEDS: PANTOPRAZOLE 40 MG TAB PO SCH (11:06)
[2018-10-24] MEDS: ENOXAPARIN SOD 30 MG/0.3 ML SYRINGE SC SCH (11:06)
[2018-10-24] MEDS: METOPROLOL TARTRATE 50 MG TAB PO SCH ×2 (11:07→22:06)
[2018-10-24] MEDS: CHOLECALCIFEROL (VITD3) 1,000 UNIT TAB PO SCH (11:07)
[2018-10-24] MEDS: LISINOPRIL 20 MG TAB PO SCH (11:07)
[2018-10-24] MEDS: SODIUM FERR GLUC 62.5MG/5ML 125 MG in SODIUM CHL 0.9% 100 ML IV SCH (12:26)
[2018-10-24 13:24] VITALS: BP 163/58
[2018-10-24] MEDS: cloNIDine HCL 0.1 MG TAB PO PRN (14:03)
--- NOTE | 2018-10-24 14:06 | NUR ---
ELEVATED B/P BLOOD PRESSURE 163/58 mmHG NO S/S OF DISTRESS, SOB, OR PAIN. CLONIDINE GIVEN PER EMAR WILL REASSESS PATIENT'S BLOOD PRESSURE IN ONE HOUR AND CONTINUE TO MONITOR PRN
--- NOTE | 2018-10-24 15:10 | NUR ---
BP REASSESSED BP 154/55 mmHG Patient is asymptomatic. No s/s of distress, sob, or pain. Will continue to monitor q1 hour and prn. Addendum: 10/24/18 at 1850 by Domitila Morelos RN Patient is currently saline locked
[2018-10-24 17:28] VITALS: BP 154/55
--- NOTE | 2018-10-24 18:51 | NUR ---
END OF SHIFT PATIENT RESTING IN CHAIR. FAMILY AT BEDSIDE. NO S/S OF DISTRESS, SOB, OR PAIN. RESPIRATIONS EVEN AND UNLABORED. BED IN LOWEST POSITION, SIDE RAILS UPX2, AND CALL LIGHT WITHIN REACH. WILL ENDORSE CARE TO GAS WELL DRILLING MANAGER R.N.
--- NOTE | 2018-10-24 20:00 | NUR ---
OPENING NOTE PATIENT ALERT AND ORIENTED X 4. PATIENT IS SITTING UP IN CHAIR. IS W/ HER. SHOWS NO S/S MICHAEL DISTRESS. PATIENT IS ON 2.5 L NC. PATIENT WAS EDUCATED ON GLUCOSE CONTROL
--- NOTE | 2018-10-24 20:07 | NUR ---
Respiratory note: PT CURRENTLY ON 2 L/M NC: HR 67, RR 16, SPO2 100% WITH CLEAR/DIM BS T/O. PT IS NOT IN ANY RESPIRATORY DISTRESS. INFORMED PT IF SOB TO CONTACT RESPIRATORY FOR BREATHING TX. WILL CONTINUE TO MONITOR.
[2018-10-24] MEDS: traMADol HCL 50 MG TAB PO PRN (21:01)
[2018-10-24 22:00] VITALS: BP 160/60
[2018-10-25] MEDS: ACCU-CHEK COMFORT CURVE STRIP VI SCH ×5 (04:19→20:00)
[2018-10-25] MEDS: InsuLIN REG 1unit/0.01ml Soln (100units/ml) SC SCH ×5 (04:20→20:45)
[2018-10-25] MEDS: traMADol HCL 50 MG TAB PO PRN (04:22)
[2018-10-25 05:00] VITALS: BP 110/55
[2018-10-25 05:53] LABS: Basophils # (auto) 0 uL; Eosinophils # (auto) 0.1 uL; Mean Corpuscular Hgb Conc. 32.6 g/dL (32.0-36.0); Monocytes # (auto) 0.6 uL; Monocytes % (auto) 12.4 % (0.0-12.0)
[2018-10-25 05:55] LABS: Basophils % (auto) 0.6 % (0.0-2.0); Eosinophils % (auto) 2.6 % (0.0-7.0); Hematocrit 21.6 % (36.0-46.0); Lymphocytes # (auto) 1.4 uL; Lymphocytes % (auto) 28.5 % (10.0-50.0); Mean Corpuscular Volume 101.3 fL (80.0-100.0); Neutrophils # (auto) 2.8 uL; Neutrophils % (auto) 55.9 % (37.0-80.0); Nucleated Red Blood Cells % 0.2 %; Platelet Count (auto) 229 10^3/uL (140-450); Red Blood Cells 2.13 10^6/uL (4.0-5.20); Red Cell Distribution Width 16.5 % (11.8-14.3); White Blood Cell 5.1 10^3/uL (4.4-10.8)
[2018-10-25 06:12] LABS: Hemoglobin 7.1 g/dL (12.2-16.2)
[2018-10-25 06:15] LABS: Potassium 4.1 mmol/L (3.5-5.1)
[2018-10-25 06:20] LABS: Albumin 2.2 g/dL (3.4-5.0); BUN/Creatinine Ratio 19.1; Bilirubin, Total 0.2 mg/dL (0.2-1.0); Calcium 7.8 mg/dL (8.5-10.1); Total Protein 5.6 g/dL (6.4-8.2)
[2018-10-25] MEDS: FUROSEMIDE 40 MG/4 ML VIAL IV SCH (07:58)
--- NOTE | 2018-10-25 08:44 | NUR ---
RT NOTE: PRN BREATHING TX. NOT INDICATED AT THIS TIME. PT. DENIES ANY SOB. PT. HR 67, RR 18, POX 98% 2L N/C. PT. ADVISED TO NOTIFY RN IF BREATHING TX. IS NEEDED. PT. VERBALIZED UNDERSTANDING.
[2018-10-25 09:00] VITALS: BP 178/62
[2018-10-25] MEDS: ENOXAPARIN SOD 30 MG/0.3 ML SYRINGE SC SCH (09:33)
[2018-10-25] MEDS: CHOLECALCIFEROL (VITD3) 1,000 UNIT TAB PO SCH (09:34)
[2018-10-25] MEDS: METOPROLOL TARTRATE 50 MG TAB PO SCH ×2 (09:35→22:36)
[2018-10-25] MEDS: LISINOPRIL 20 MG TAB PO SCH (09:35)
[2018-10-25] MEDS: PANTOPRAZOLE 40 MG TAB PO SCH (09:35)
[2018-10-25] MEDS: SODIUM FERR GLUC 62.5MG/5ML 125 MG in SODIUM CHL 0.9% 100 ML IV SCH (12:00)
[2018-10-25 13:00] VITALS: BP 181/58
--- NOTE | 2018-10-25 13:00 | NUR ---
Dr. Hoang paged regarding elevated blood sugar.
[2018-10-25] MEDS: cloNIDine HCL 0.1 MG TAB PO PRN (14:10)
--- NOTE | 2018-10-25 14:20 | NUR ---
Dr. Hoang returned call - new insulin orders given per DEC.
[2018-10-25] MEDS ORDERED: INSULIN LISPRO (HUMAN) 100 UNITS/ML ML SC ONE (15:00)
--- NOTE | 2018-10-25 15:00 | NUR ---
NEUROLOGY CONSULT RE-CALLED.
--- NOTE | 2018-10-25 15:27 | NUR ---
Nutrition Follow-up Notes Wt.: 7236 kg as of yesterday. Pt's on oxygen via nasal cannula, sitting up on bedside chair, denies any discomfort when rounded this morning. Pt states that she usually weighs around 155 lbs, denies any significant weight change few months sales planning coordinator. Pt's diabetic,with insulin shot once daily, usually has good appetite, eat meals regularly, NKFA and not into any special diets sales planning coordinator. Pt's currently on Consistent Carb diet with adequate PO intake aeb 95% ave. consumed meals (x6) in last 2.5 days. Provide verbal and written nutrition educ. re: current prescribed therapeutic diet as well as FDI for Lasix and she verbalized understanding. Est. Needs BW [id number] kcal (23-25 kcal/kgBW), 57-72 gms pro (0.8-1.0 gms/kgBW r/t elev RFT). Will continue to monitor pertinent labs and reassess nutrient need prn Labs: Gluc 171 H, Cl 108 H, BUN 43 H, Cr 2.25 H, Ca 7.8 L, Tpro 5.6 L, Alb 2.2 L, ALP 170 H; A1C 14.5 H Skin: Bradford scale 20, low risk, skin intact per head mva reactor operator. GI: Pt had 1 BM this morning per head mva reactor operator. PES: Altered nutrition related lab values r/t current/chronic medical condition aeb elev RFT A1C, mod hypoalb, hypocalcemia, hyperglycemia Will continue to monitor PO intake, skin status, pertinent labs and weight trend. F/u in 3 to 5 days. Rec.: 1.) Continue close supervision during meals. 2.) If Albumin level continues trending down, consider Prostat 1 pkt BID. 3.) Refer pt to CDE/RD for further nutrition education and weight monitoring upon discharge. 4.) Continue current plan of care.
[2018-10-25] MEDS: INSULIN LISPRO (HUMAN) 100 UNITS/ML ML SC SCH (17:00)
[2018-10-25 17:47] VITALS: BP 146/51
[2018-10-25] MEDS: BUMETANIDE 1 MG TAB PO SCH (18:00)
--- NOTE | 2018-10-25 19:20 | NUR ---
Opening Shift Note Received report from walter Abrams RN. Assumed care of patient, awake and alert. No S/S of distress/SOB or pain. at bedside. Instructed on POC and to call for assist PRN, will continue to monitor for changes Q1hr and PRN. Bed placed in lowest position, bed alarm turned on and call light within reach.
--- NOTE | 2018-10-25 19:31 | NUR ---
PRN MED NEB ASSESSMENT. PT DENIES SOB. NO DISTRESS NOTED. POX IS 95% ON 2LNC HR 66 RR 20 BS ARE CLEAR AND DIMINISHED. TX NOT GIVEN.
[2018-10-25 22:00] VITALS: BP 114/50
[2018-10-25] MEDS: INSULIN LANTUS (GLARGINE) 1 /0.01ml (100units/ml) SC SCH (23:08)
[2018-10-26] MEDS: ACCU-CHEK COMFORT CURVE STRIP VI SCH ×6 (00:12→20:20)
[2018-10-26 02:38] VITALS: BP 114/50
[2018-10-26] MEDS: InsuLIN REG 1unit/0.01ml Soln (100units/ml) SC SCH ×6 (04:00→20:20)
[2018-10-26] MEDS: traMADol HCL 50 MG TAB PO PRN ×2 (04:57→22:06)
[2018-10-26 05:12] VITALS: BP 133/63
[2018-10-26] MEDS: BUMETANIDE 1 MG TAB PO SCH ×2 (05:49→18:00)
[2018-10-26] MEDS: INSULIN LISPRO (HUMAN) 100 UNITS/ML ML SC SCH ×3 (06:35→17:00)
--- NOTE | 2018-10-26 06:47 | NUR ---
ASSISTED PATIENT TO THE BATHROOM, ALERT ORIENTED NO DISTRESS NOTED AND PATIENT JUST RECEIVED TRAMADOL FOR PAIN TO KNEES. ASSISTED BACK TO CHAIR SITTING COMFORTABLY AT THIS TIME.
--- NOTE | 2018-10-26 08:00 | NUR ---
Opening shift note: Pt. A/O x-4, sitting up in the chair and not exhibiting any s/s of distress nor discomfort noted. Patient encouraged to call if she needs anything.
[2018-10-26 09:00] VITALS: BP 160/57
[2018-10-26] MEDS: ENOXAPARIN SOD 30 MG/0.3 ML SYRINGE SC SCH (10:00)
[2018-10-26] MEDS: METOPROLOL TARTRATE 50 MG TAB PO SCH ×2 (10:00→22:17)
[2018-10-26] MEDS: LISINOPRIL 20 MG TAB PO SCH (10:00)
[2018-10-26] MEDS: PANTOPRAZOLE 40 MG TAB PO SCH (10:00)
[2018-10-26] MEDS: CHOLECALCIFEROL (VITD3) 1,000 UNIT TAB PO SCH (10:00)
[2018-10-26 10:03] LABS: Basophils # (auto) 0 uL; Basophils % (auto) 0.5 % (0.0-2.0); Eosinophils # (auto) 0.1 uL; Lymphocytes # (auto) 1.1 uL; Red Blood Cells 2.23 10^6/uL (4.0-5.20); White Blood Cell 6.8 10^3/uL (4.4-10.8)
[2018-10-26 10:05] LABS: Eosinophils % (auto) 1.2 % (0.0-7.0); Hematocrit 22.6 % (36.0-46.0); Hemoglobin 7.3 g/dL (12.2-16.2); Lymphocytes % (auto) 15.6 % (10.0-50.0); Mean Corpuscular Hemoglobin 32.7 pg (28.0-32.0); Mean Corpuscular Hgb Conc. 32.3 g/dL (32.0-36.0); Mean Corpuscular Volume 101.2 fL (80.0-100.0); Monocytes # (auto) 0.5 uL; Neutrophils # (auto) 5.1 uL; Neutrophils % (auto) 74.7 % (37.0-80.0); Nucleated Red Blood Cells % 0.1 %; Platelet Count (auto) 210 10^3/uL (140-450); Red Cell Distribution Width 16.6 % (11.8-14.3)
[2018-10-26 10:16] LABS: Albumin 2.1 g/dL (3.4-5.0); BUN/Creatinine Ratio 20.3; Calcium 7.6 mg/dL (8.5-10.1); Potassium 4.3 mmol/L (3.5-5.1)
[2018-10-26 10:19] LABS: Bilirubin, Total 0.2 mg/dL (0.2-1.0); Total Protein 5.5 g/dL (6.4-8.2)
[2018-10-26] MEDS: ACETAMINOPHEN 500 MG TAB PO PRN (11:50)
--- NOTE | 2018-10-26 11:55 | NUR ---
Patient's IV in right forearm is showing signs of infiltration and is warm to touch. Patient is refusing another IV insertion at this time. Will attempt later. IV removed and patient given a cold compress to apply to left arm IV site at this time.
[2018-10-26] MEDS: SODIUM FERR GLUC 62.5MG/5ML 125 MG in SODIUM CHL 0.9% 100 ML IV SCH (12:00)
[2018-10-26 17:51] VITALS: BP 119/43
--- NOTE | 2018-10-26 19:00 | NUR ---
Closing Shift Note: Care endorsed to Sarabjit. Patient A/O x-4, resting in bed. Bed in low position with call light in reach. Patient not exhibiting any s/s of distress nor discomfort at this time. Patient encouraged to call if she needs anything.
--- NOTE | 2018-10-26 19:30 | NUR ---
Opening Shift Note Received report from walter Abrams RN. Assumed care of patient, awake and alert and sitting up in chair. No S/S of distress/SOB or pain. Instructed on POC and to call for assist PRN, will continue to monitor for changes Q1hr and PRN.
--- NOTE | 2018-10-26 20:06 | NUR ---
DISCHARGE PRESCRIPTIONS CALLED IN TO [facility], [place], [place]. PER DR. LA. [facility] SEE MED LIST ON CHART.
--- NOTE | 2018-10-26 20:12 | NUR ---
RT NOTE: PT ASSESSED BY RT @ THIS TIME. PRN MED NEB TX NOT INDICATED. SP02 100% ON 2L NASAL CANNULA, HR 64, CLEAR/DIMINISHED BS. NO SOB OR DISTRESS NOTED.
[2018-10-26 22:00] VITALS: BP 135/60
[2018-10-26] MEDS: INSULIN LANTUS (GLARGINE) 1 /0.01ml (100units/ml) SC SCH (22:18)
[2018-10-27] MEDS: InsuLIN REG 1unit/0.01ml Soln (100units/ml) SC SCH ×6 (01:07→20:00)
[2018-10-27] MEDS: ACCU-CHEK COMFORT CURVE STRIP VI SCH ×6 (04:27→20:00)
[2018-10-27 05:50] VITALS: BP 151/69
[2018-10-27] MEDS: BUMETANIDE 1 MG TAB PO SCH ×2 (07:07→18:09)
[2018-10-27] MEDS: INSULIN LISPRO (HUMAN) 100 UNITS/ML ML SC SCH ×3 (07:07→18:09)
[2018-10-27 08:00] VITALS: BP 151/69
--- NOTE | 2018-10-27 08:00 | NUR ---
Opening Shift Note Assumed care of patient, awake and alert. Pt denies pain or discomfort at this time. V.S.S., resp even, unlabored. Pt refused to have blood sugar checked at this time, stating "she just gave me Insulin so there is no reason to check my sugar." Pt instructed on POC and to call for assist PRN, will continue to monitor for changes Q1hr and PRN.
[2018-10-27 09:32] VITALS: BP 116/45
[2018-10-27] MEDS: CHOLECALCIFEROL (VITD3) 1,000 UNIT TAB PO SCH (10:24)
[2018-10-27] MEDS: LISINOPRIL 20 MG TAB PO SCH (10:25)
[2018-10-27] MEDS: METOPROLOL TARTRATE 50 MG TAB PO SCH ×2 (10:25→22:01)
[2018-10-27] MEDS: PANTOPRAZOLE 40 MG TAB PO SCH (10:26)
--- NOTE | 2018-10-27 10:30 | NUR ---
Pt c/o leg pain "due to swelling". Mingo pulled from pyxsis. Pt states that "[place] makes me go crazy". [place] wasted per protocol. Ultram given at this time. Pt continues to refuse to have IV access due to "swelling in my arms".
[2018-10-27] MEDS: ENOXAPARIN SOD 30 MG/0.3 ML SYRINGE SC SCH (10:36)
[2018-10-27] MEDS: HYDROcodone-ACET 5/325MG TAB PO PRN ×2 (10:36→10:43)
[2018-10-27] MEDS: traMADol HCL 50 MG TAB PO PRN ×2 (10:40→22:00)
--- NOTE | 2018-10-27 12:00 | NUR ---
Pt informed of importance of having adequate IV access due to diagnosis of possible seizures. And, hospital protocol for pt to have IV access when on compliance monitor. Pt agreed to have IV started. IV insertion IV access obtained, via clean sterile technique by inserting 22 gauge catheter at left AC after one attempt.. IV secured properly. No trauma to site. Patient tolerated procedure well.
--- NOTE | 2018-10-27 12:34 | NUR ---
RT NOTE: PT. OFF O2, AT REST POX 91%. PT. AMBULATED APROX. 40FT AND THEN PT. COMPLAINED OF HER LEGS HURTING. PT. AMBULATED BACK TO CHAIR WITH WALKER. POX 90% THEN WENT UP TO 94%. PT. COMPLAINED OF DIZZINESS AND WANTED HER O2 BACK ON. PT. PLACED BACK ON O2. DR. ORTIZ AND ELDA FISH.
[2018-10-27] MEDS: SODIUM FERR GLUC 62.5MG/5ML 125 MG in SODIUM CHL 0.9% 100 ML IV SCH (13:12)
[2018-10-27 13:48] VITALS: BP 156/64
[2018-10-27 17:12] VITALS: BP 132/64
--- NOTE | 2018-10-27 18:00 | NUR ---
Pt sitting up in chair at bedside. No further c/o pain or discomfort. IV patent, site clear to left AC. Need for security monitor reinforced.
--- NOTE | 2018-10-27 19:40 | NUR ---
RECEIVED AWAKE, ALERT, ORIENTED X4. NO S/S OF RESPIRATORY DISTRESS. PATIENT REFUSED TO HAVE A MALE NURSE, CHARGE NURSE INFORMED
--- NOTE | 2018-10-27 19:50 | NUR ---
CARE ENDORSED TO ELDA CAVAZOS
--- NOTE | 2018-10-27 20:00 | NUR ---
Respiratory note: PT ASSESSED FOR PRN MED NEB TX. HR 65, RR 18, SPO2 98% ON 2L NC, BS CLEAR/DIMINISHED. NO SIGNS OF ANY RESPIRATORY DISTRESS NOTED. ADVISED PT TO PLEASE CALL IF NEEDED.
[2018-10-27] MEDS: TEMAZEPAM 15 MG CAP PO PRN (21:59)
[2018-10-27] MEDS: INSULIN LANTUS (GLARGINE) 1 /0.01ml (100units/ml) SC SCH (22:01)
[2018-10-27 22:05] VITALS: BP 146/66
--- NOTE | 2018-10-28 00:43 | NUR ---
PT'S BG 65, PT ASYMPTOMATIC, REFUSED SNACK AT BEDTIME, NOW RECEIVED OJ 240 ML AND ATE A FULL SANDWICH
[2018-10-28] MEDS: ACCU-CHEK COMFORT CURVE STRIP VI SCH ×6 (04:00→20:00)
[2018-10-28] MEDS: InsuLIN REG 1unit/0.01ml Soln (100units/ml) SC SCH ×6 (04:00→20:00)
[2018-10-28 04:46] VITALS: BP 141/85
[2018-10-28] MEDS: BUMETANIDE 1 MG TAB PO SCH ×2 (06:09→17:57)
[2018-10-28] MEDS: INSULIN LISPRO (HUMAN) 100 UNITS/ML ML SC SCH ×3 (06:36→17:51)
[2018-10-28 07:09] LABS: BUN/Creatinine Ratio 19.3; Calcium 7.8 mg/dL (8.5-10.1)
--- NOTE | 2018-10-28 07:43 | NUR ---
NEUROLOGY CONSULT RE: SEIZURES CALLED IN FOR DR. SHEFFIELD THRU PBX.
--- NOTE | 2018-10-28 08:00 | NUR ---
Opening Shift Note Assumed care of patient, awake and alert. No S/S of distress/SOB or pain. Instructed on POC and to call for assist PRN, will continue to monitor for changes Q1hr and PRN.
[2018-10-28 09:00] VITALS: BP 112/52
--- NOTE | 2018-10-28 09:47 | NUR ---
PT ASSESSED FOR PRN HHN TX. PT IS ON 2LNC, SPO2 98%, HR 63, RR 16. NO S/S OF RESPIRATORY DISTRESS. WILL CONTINUE TO MONITOR.
[2018-10-28] MEDS: PANTOPRAZOLE 40 MG TAB PO SCH (09:52)
[2018-10-28] MEDS: CHOLECALCIFEROL (VITD3) 1,000 UNIT TAB PO SCH (09:52)
[2018-10-28] MEDS: ENOXAPARIN SOD 30 MG/0.3 ML SYRINGE SC SCH (09:53)
[2018-10-28] MEDS: METOPROLOL TARTRATE 50 MG TAB PO SCH ×2 (10:00→22:00)
[2018-10-28] MEDS: LISINOPRIL 20 MG TAB PO SCH (10:00)
--- NOTE | 2018-10-28 10:55 | NUR ---
O2 sat on room air-93%. Dr. Gaitan aware. Will continue care.
--- NOTE | 2018-10-28 11:54 | NUR ---
Neurology Consult Dr. Carver at bedside.
[2018-10-28 13:00] VITALS: BP 175/79
[2018-10-28] MEDS: SODIUM FERR GLUC 62.5MG/5ML 125 MG in SODIUM CHL 0.9% 100 ML IV SCH (13:33)
[2018-10-28] MEDS: traMADol HCL 50 MG TAB PO PRN ×2 (14:31→22:43)
[2018-10-28 17:00] VITALS: BP 153/69
[2018-10-28 22:00] VITALS: BP 162/71
[2018-10-28] MEDS: INSULIN LANTUS (GLARGINE) 1 /0.01ml (100units/ml) SC SCH (22:40)
[2018-10-29] VITALS (7 sets, daily range): BP systolic 129–177; BP diastolic 68–79
--- NOTE | 2018-10-29 01:00 | NUR ---
PT SEEN SLEEPING IN CHAIR ON 3L NC, SPO2 100%, BS CLEAR AND DIMINISHED. NO PRN NEB TX INDICATED AT THIS TIME.
[2018-10-29] MEDS: PROMETHAZINE HCL 25 MG/ML 1ML IV PRN (01:58)
--- NOTE | 2018-10-29 02:09 | NUR ---
Pt sits in chair to sleep, wakes up with anxiety and nausea; given promethazine with good relief. for BG 79 given 200 ml oj, tolerated well, .for anxiety given lorazepam 0.5 mg po. pt encouraged to lay in bed for some time, but refuses to do so.
[2018-10-29] MEDS: InsuLIN REG 1unit/0.01ml Soln (100units/ml) SC SCH ×7 (02:28→23:51)
[2018-10-29] MEDS: ACCU-CHEK COMFORT CURVE STRIP VI SCH ×7 (02:30→23:51)
[2018-10-29] MEDS: INSULIN LISPRO (HUMAN) 100 UNITS/ML ML SC SCH ×3 (06:27→17:00)
--- NOTE | 2018-10-29 06:28 | NUR ---
pt's repeat bg is 107, Humalog 8u held this am due to pt's tendency to eat less and run lower glucose levels.
--- NOTE | 2018-10-29 07:33 | NUR ---
RT NOTE: WENT TO PTS ROOM TO ASSESS FOR PRN BREATHING TX. NO TX NEEDED AT THIS TIME. PT IS ON 4 LPM NC, SPO2 99%, HR 68, BREATH SOUNDS CLEAR. WILL CONTINUE TO MONITOR PT.
--- NOTE | 2018-10-29 08:00 | NUR ---
OPENING NOTE PATIENT IN CHAIR AT BEDSIDE, EATING BREAKFAST. NO S/S OF DISTRESS. PATIENT EDUCATED ON FLUID RETENTION AND THE IMPORTANCE OF ELEVATING HER FEET. PATIENT VERBALIZED UNDERSTANDING. PATIENT STATES SHE IS UNABLE TO GET IN THE BED BECAUSE IT MAKES HER SHORT OF BREATH EVEN WITH THE HEAD OF BED UP. WILL CONTINUE TO MONITOR PATIENT.
[2018-10-29] MEDS: BUMETANIDE 1 MG TAB PO SCH ×2 (08:38→17:11)
--- NOTE | 2018-10-29 10:00 | NUR ---
MD LA ORDERS TO RECONSULT NEPHROLOGY. WILL FOLLOW THROUGH. Addendum: 10/29/18 at 1405 by ANDREW WEBSTER RN ORDERS FROM MD LA AT 0325
[2018-10-29] MEDS: PANTOPRAZOLE 40 MG TAB PO SCH (10:31)
[2018-10-29] MEDS: METOPROLOL TARTRATE 50 MG TAB PO SCH ×2 (10:32→22:12)
[2018-10-29] MEDS: LISINOPRIL 20 MG TAB PO SCH (10:32)
[2018-10-29] MEDS: CHOLECALCIFEROL (VITD3) 1,000 UNIT TAB PO SCH (10:32)
[2018-10-29] MEDS: ENOXAPARIN SOD 30 MG/0.3 ML SYRINGE SC SCH (10:32)
[2018-10-29 12:04] LABS: Albumin 2.3 g/dL (3.4-5.0); BUN/Creatinine Ratio 18.2; Basophils # (auto) 0 uL; Calcium 7.8 mg/dL (8.5-10.1); Eosinophils # (auto) 0.1 uL; Hemoglobin 7.4 g/dL (12.2-16.2); Lymphocytes # (auto) 1.4 uL; Monocytes # (auto) 0.7 uL; Neutrophils # (auto) 3.4 uL; Potassium 4.5 mmol/L (3.5-5.1)
[2018-10-29 12:07] LABS: Basophils % (auto) 0.9 % (0.0-2.0); Bilirubin, Total 0.2 mg/dL (0.2-1.0); Hematocrit 22.5 % (36.0-46.0); Lymphocytes % (auto) 24.7 % (10.0-50.0); Mean Corpuscular Hemoglobin 33.4 pg (28.0-32.0); Mean Corpuscular Hgb Conc. 33.2 g/dL (32.0-36.0); Mean Corpuscular Volume 100.7 fL (80.0-100.0); Monocytes % (auto) 11.9 % (0.0-12.0); Neutrophils % (auto) 60.5 % (37.0-80.0); Nucleated Red Blood Cells % 0.2 %; Platelet Count (auto) 255 10^3/uL (140-450); Red Blood Cells 2.23 10^6/uL (4.0-5.20); Red Cell Distribution Width 16.7 % (11.8-14.3); Total Protein 6.1 g/dL (6.4-8.2); White Blood Cell 5.5 10^3/uL (4.4-10.8)
[2018-10-29] MEDS: SODIUM FERR GLUC 62.5MG/5ML 125 MG in SODIUM CHL 0.9% 100 ML IV SCH (12:18)
[2018-10-29] MEDS: traMADol HCL 50 MG TAB PO PRN ×2 (12:25→22:58)
--- NOTE | 2018-10-29 13:36 | NUR ---
PATIENT STATING SHE IS HAVING A "PANIC ATTACK." PATIENT STATES SHE IS SHORT OF BREATH BECAUSE SHE TOOK OF HER OXYGEN TO GO TO THE RESTROOM. PATIENT INSTRUCTED TO TAKE DEEP BREATHS THROUGH THE NOSE TO GET THE OXYGEN. PATIENT REFUSING MEDICATION FOR ANXIETY AT THIS TIME. PATIENT CALM AT THIS TIME. WILL CONTINUE TO MONITOR.
--- NOTE | 2018-10-29 15:07 | NUR ---
Nutrition Follow-up Notes Wt.: 70.5 kg Pt's awake and oriented when rounded this am. per pt no N/V and with good appetite. pt is currently on CCHO 60 gm diet with adqute Po of 75% x 4 per RN doc Est. Needs BW [id number] kcal (23-25 kcal/kgBW), 57-72 gms pro (0.8-1.0 gms/kgBW r/t elev RFT). Will continue to monitor pertinent labs and reassess nutrient need prn Labs: BUN 49 H, CREAT 2.54 H, ALB 2.1 L, CA 7.8 L. Skin: Bradford scale 20, low risk, skin intact per tipple worker. GI: Pt had 1 BM yesterday per tipple worker. PES: Altered nutrition related lab values r/t current/chronic medical condition aeb elev RFT A1C, mod hypoalb, hypocalcemia, hyperglycemia Will continue to monitor PO intake, skin status, pertinent labs and weight trend. F/u in 3 to 5 days. Rec.: 1.) Continue close supervision during meals. 2.) If Albumin level continues trending down, consider Prostat 1 pkt BID. 3.) Refer pt to CDE/RD for further nutrition education and weight monitoring upon discharge. 4.) Continue current plan of care.
--- NOTE | 2018-10-29 17:01 | NUR ---
PATIENT STATES HER SUGAR WILL CONTINUE TO DROP, PATIENT REQUESTING JUICE. CURRENTLY BLOOD SUGAR AT 95, MEDICATIONS HELD AT THIS TIME. ONE JUICE GIVEN PER PATIENT REQUEST. WILL CONTINUE TO MONITOR AND INFORM SHUTTLE VENEERING SUPERVISOR.
--- NOTE | 2018-10-29 18:38 | NUR ---
Respiratory note: PT ALERT AND ORIENTED. PT HR 73 RR 18 SPO2 100% ON 5LPM NC BS CLEAR DIMINISHED BILATERALLY. FIO2 TITRATED TO 3LPM NC. PRN MED NEB TX NOT INDICATED AT THIS TIME. PT REMAINS STABLE WITH NO RESPIRATORY DISTRESS NOTED. WILL CONTINUE TO MONITOR PT ORDERED.
--- NOTE | 2018-10-29 19:35 | NUR ---
OPENING SHIFT NOTE RECEIVED REPORT FROM DAYSHIFT RN. PATIENT SITTING UPRIGHT IN CHAIR AT BEDSIDE WITH EYES CLOSED. NO S/S OF DISTRESS OR SOB, NO PAIN NOTED OR REPORTED. PT A/O X4, AMBULATORY, ON 3L NC. UPDATED PT ON POC, VERBALIZED UNDERSTANDING. BED LOCKED IN LOW POSITION, CALL LIGHT WITHIN REACH. WILL CONTINUE TO MONITOR PT Q1HR AND PRN.
[2018-10-29] MEDS: INSULIN LANTUS (GLARGINE) 1 /0.01ml (100units/ml) SC SCH (22:15)
[2018-10-30] MEDS: InsuLIN REG 1unit/0.01ml Soln (100units/ml) SC SCH ×6 (04:00→20:35)
[2018-10-30] MEDS: ACCU-CHEK COMFORT CURVE STRIP VI SCH ×5 (04:04→20:36)
[2018-10-30 05:18] VITALS: BP 130/79
[2018-10-30] MEDS: INSULIN LISPRO (HUMAN) 100 UNITS/ML ML SC SCH ×3 (05:54→16:50)
[2018-10-30] MEDS: BUMETANIDE 1 MG TAB PO SCH ×2 (05:54→16:52)
[2018-10-30 06:33] LABS: Basophils # (auto) 0 uL; Eosinophils # (auto) 0.1 uL; Hemoglobin 7.1 g/dL (12.2-16.2); Lymphocytes % (auto) 31.8 % (10.0-50.0); Mean Corpuscular Volume 99.7 fL (80.0-100.0); Monocytes # (auto) 0.7 uL; Nucleated Red Blood Cells % 0.1 %; Red Blood Cells 2.18 10^6/uL (4.0-5.20); Red Cell Distribution Width 16.9 % (11.8-14.3)
[2018-10-30 06:39] LABS: Basophils % (auto) 0.4 % (0.0-2.0); Eosinophils % (auto) 1.4 % (0.0-7.0); Hematocrit 21.8 % (36.0-46.0); Lymphocytes # (auto) 1.6 uL; Mean Corpuscular Hemoglobin 32.6 pg (28.0-32.0); Mean Corpuscular Hgb Conc. 32.7 g/dL (32.0-36.0); Monocytes % (auto) 14.2 % (0.0-12.0); Neutrophils # (auto) 2.7 uL; Neutrophils % (auto) 52.2 % (37.0-80.0); Platelet Count (auto) 234 10^3/uL (140-450); White Blood Cell 5.1 10^3/uL (4.4-10.8)
[2018-10-30 06:51] LABS: Potassium 4.1 mmol/L (3.5-5.1)
[2018-10-30 07:00] LABS: Albumin 2.3 g/dL (3.4-5.0); BUN/Creatinine Ratio 18.2; Bilirubin, Total 0.2 mg/dL (0.2-1.0); Calcium 8.1 mg/dL (8.5-10.1); Total Protein 5.8 g/dL (6.4-8.2)
[2018-10-30] MEDS: cloNIDine HCL 0.1 MG TAB PO PRN (08:30)
--- NOTE | 2018-10-30 08:39 | NUR ---
pt assessed for prn hhn tx. pt is on 3lnc, spo2 97%, hr 81, rr 18. no s/s of respiratory distress. breathing tx not indicated at this time. will continue to monitor.
[2018-10-30 09:00] VITALS: BP 169/77
[2018-10-30] MEDS: PANTOPRAZOLE 40 MG TAB PO SCH (09:39)
[2018-10-30] MEDS: CHOLECALCIFEROL (VITD3) 1,000 UNIT TAB PO SCH (09:39)
[2018-10-30] MEDS: ENOXAPARIN SOD 30 MG/0.3 ML SYRINGE SC SCH (09:40)
[2018-10-30] MEDS: LISINOPRIL 20 MG TAB PO SCH (09:47)
[2018-10-30] MEDS: METOPROLOL TARTRATE 50 MG TAB PO SCH ×2 (09:47→22:40)
[2018-10-30 13:00] VITALS: BP 147/52
[2018-10-30] MEDS: SODIUM FERR GLUC 62.5MG/5ML 125 MG in SODIUM CHL 0.9% 100 ML IV SCH (13:12)
--- NOTE | 2018-10-30 14:00 | NUR ---
PATIENT NPO NOW PENDING ABDOMINAL ULTRASOUND.
[2018-10-30 17:00] VITALS: BP 148/99
--- NOTE | 2018-10-30 18:40 | NUR ---
Ultrasound at bedside.
--- NOTE | 2018-10-30 19:00 | NUR ---
PATIENT GIVEN DINNER TRAY. NO LONGER NPO.
--- NOTE | 2018-10-30 19:45 | NUR ---
OPENING SHIFT NOTE Received report from RN. Patient is sitting in chair at bedside. Patient is A&O X's 4 with no distress noted. Patient reports feeling mild SOB at this moment from ambulating back from the bathroom. O2 is being administered via N.C @ 4L/min. Educated patient on POC and to use call light when needing to ambulate and for other assistance. Patient verbalized understanding. Will continue to monitor and round hourly/PRN.
--- NOTE | 2018-10-30 21:12 | NUR ---
Respiratory note: PT CURRENTLY ON 4 L/M NC: HR 74, RR 16, SPO2 97% WITH CLEAR/DIM T/O. PT SHOWS NO S/S OF ANY RESPIRATORY DISTRESS. INFORMED PT IF SOB TO CONTACT RESPIRATORY FOR BREATHING TX. WILL CONTINUE TO MONITOR.
--- NOTE | 2018-10-30 21:30 | NUR ---
DOWNGRADE TO M/S Orders for downgrade to M/S. Tele monitor was removed. Will continue to monitor patient.
[2018-10-30 22:34] VITALS: BP 176/73
[2018-10-30] MEDS: INSULIN LANTUS (GLARGINE) 1 /0.01ml (100units/ml) SC SCH (22:41)
[2018-10-30] MEDS: traMADol HCL 50 MG TAB PO PRN (22:41)
[2018-10-31] MEDS: ACCU-CHEK COMFORT CURVE STRIP VI SCH ×6 (00:12→20:37)
[2018-10-31] MEDS: InsuLIN REG 1unit/0.01ml Soln (100units/ml) SC SCH ×6 (00:12→20:36)
--- NOTE | 2018-10-31 03:40 | NUR ---
NEW IV INSERTED New 22G IV to the left hand inserted on first attempt using clean technique. Will continue to monitor patient.
--- NOTE | 2018-10-31 03:45 | NUR ---
IV DISCONTINUED 22G IV to left forearm was erythematic and patient c/o pain at the site. IV was removed with catheter fully intact.
[2018-10-31] MEDS: cloNIDine HCL 0.1 MG TAB PO PRN (04:09)
[2018-10-31 05:10] VITALS: BP 181/73
[2018-10-31] MEDS: BUMETANIDE 1 MG TAB PO SCH ×2 (05:46→18:00)
[2018-10-31] MEDS: INSULIN LISPRO (HUMAN) 100 UNITS/ML ML SC SCH ×3 (06:40→17:00)
--- NOTE | 2018-10-31 08:00 | NUR ---
ASSESSMENT NOTE PT IS ALERT ORIENTED X4, SITTING UP ON CHAIR AT BED SIDE, NO DISTRESS NOTED, PAIN 0/10.
[2018-10-31 09:00] VITALS: BP 159/68
--- NOTE | 2018-10-31 09:30 | NUR ---
BM PT GOT UP, AMBULATE TO BATHROOM, PT HAS A LOOSE BM, SOME CAME OVER THE FLOOR, PT STARTED YELLING AND SCREAMING, STATED < IT CAME ON MY SHOES, ON THE FLOOR> PT MADE AWARE NOT TO WORRY AND I WILL CLEAN THE FLOOR, AND CALL THE HOUSE KEEPING, PT STARTED TO CALM DOWN.
[2018-10-31] MEDS: PANTOPRAZOLE 40 MG TAB PO SCH (09:35)
[2018-10-31] MEDS: CHOLECALCIFEROL (VITD3) 1,000 UNIT TAB PO SCH (09:35)
[2018-10-31] MEDS: ENOXAPARIN SOD 30 MG/0.3 ML SYRINGE SC SCH (09:35)
[2018-10-31] MEDS: METOPROLOL TARTRATE 50 MG TAB PO SCH ×2 (09:36→22:18)
[2018-10-31] MEDS: LISINOPRIL 20 MG TAB PO SCH (09:36)
[2018-10-31 09:41] LABS: Calcium 8.1 mg/dL (8.5-10.1); Potassium 4.6 mmol/L (3.5-5.1)
[2018-10-31 09:43] LABS: BUN/Creatinine Ratio 19.1
[2018-10-31] MEDS ORDERED: BUMETANIDE (0.25 MG/ML) INJ 10ML IV ONE (10:45)
[2018-10-31] MEDS ORDERED: ALBUMIN 25% 50 ML IV ONE (10:45)
--- NOTE | 2018-10-31 11:50 | NUR ---
DR LA AT BED SIDE, VERIFYING WITH PT IF ITS OKAY IF SHE AGREE FOR CHEST CT WITHOUT CONTRAST, PT AGREE, DR LA ASKED TO PUT AN ORDER FOR LORAZEPAM .5 X1
[2018-10-31] MEDS ORDERED: LORazepam 0.5 MG TAB PO ONE (12:00)
--- NOTE | 2018-10-31 12:00 | NUR ---
FAMILY PT IS HERE, OBSERVE HIS HOSTILITY, AND HE STATED < DO NOT WORRY, SHE DOES THE SAME AT HOME, RIGHT NOW HER MIND IS NOT WITH HER>
[2018-10-31 13:00] VITALS: BP 160/66
--- NOTE | 2018-10-31 14:00 | NUR ---
NO CHEST CT W/O CONTRAST BEEN ORDER FROM DR LA, PAGE MD
--- NOTE | 2018-10-31 16:30 | NUR ---
RADIOLOGY CALLED THE RADIOLOGY DEPARTMENT, INFORM THEM TO GIVE ME 30 MINUTES NOTICE BEFORE BEFORE COMING OVER AND GET THE PT, IN ORDER TO GIVE PT ATIVAN.
--- NOTE | 2018-10-31 16:32 | NUR ---
DR LA CALLED BACK WITH NEW ORDER FOR CHEST CT W/O CONTRAST.
[2018-10-31 17:00] VITALS: BP 164/71
--- NOTE | 2018-10-31 18:53 | NUR ---
LARISA FROM RADIOLOGY IS HERE, PT REQUESTED TO GO LATER TONIGHT FOR CHEST CT , AGREE TO TAKE LORAZEPAM, PT WAS NOT HAPPY WITH ME THAT I INTERRUPT IT HER DINNER, PT AWARE AT BED SIDE.
--- NOTE | 2018-10-31 19:20 | NUR ---
OPENING SHIFT NOTE Received report from day shift RN. Patient is A&O X's 4 and currently in the bathroom. She will be going down for chest CT at this moment. Will monitor and round hourly when patient returns.
--- NOTE | 2018-10-31 20:25 | NUR ---
PATIENT IN ROOM Patient back in room from chest CT. Currently sitting in chair at bedside. No distress is noted. Educated patient on POC and to use call light when needing to ambulate and any assistance. Patient verbalized understanding. Will continue to monitor and round hourly/PRN.
[2018-10-31 22:00] VITALS: BP 164/95
[2018-10-31] MEDS: hydrALAZINE HCL 25 MG TAB PO SCH (22:18)
[2018-10-31] MEDS: INSULIN LANTUS (GLARGINE) 1 /0.01ml (100units/ml) SC SCH (22:19)
[2018-10-31] MEDS: traMADol HCL 50 MG TAB PO PRN (22:19)
[2018-11-01] MEDS: ACCU-CHEK COMFORT CURVE STRIP VI SCH ×6 (00:19→21:20)
[2018-11-01 01:31] VITALS: BP 164/85
--- NOTE | 2018-11-01 03:30 | NUR ---
ASSESSMENT Patient back into chair from bathroom and c/o SOB. VS taken and are stable: 02 97% HR 80 BP 159/ 80. Educated patient to deep breathe and patient stated that helped and is no longer out of breath. Educated patient to use bedside commode for now and to call for assistance getting up. Patient verbalized understanding.Will continue to monitor and round hourly/PRN.
[2018-11-01] MEDS: InsuLIN REG 1unit/0.01ml Soln (100units/ml) SC SCH ×6 (03:54→21:20)
[2018-11-01 05:20] VITALS: BP 144/73
--- NOTE | 2018-11-01 05:30 | NUR ---
GLUCOSE CHECK Patient reported feeling like her blood sugar was dropping. Blood sugar was at 75. One carton of orange juice was given at this time. Will continue to monitor and round hourly/PRN.
[2018-11-01] MEDS: BUMETANIDE 1 MG TAB PO SCH (05:46)
[2018-11-01] MEDS: INSULIN LISPRO (HUMAN) 100 UNITS/ML ML SC SCH ×3 (06:32→17:30)
--- NOTE | 2018-11-01 07:10 | NUR ---
CLOSING SHIFT NOTE Gave report to day shift RN. Will endorse care over now.
[2018-11-01 09:00] VITALS: BP 162/74
[2018-11-01] MEDS ORDERED: ALBUMIN 25% 100 ML IV SCH (11:00)
[2018-11-01] MEDS: PANTOPRAZOLE 40 MG TAB PO SCH (11:08)
[2018-11-01] MEDS: ENOXAPARIN SOD 30 MG/0.3 ML SYRINGE SC SCH (11:08)
[2018-11-01] MEDS: METOPROLOL TARTRATE 50 MG TAB PO SCH ×2 (11:09→21:44)
[2018-11-01] MEDS: hydrALAZINE HCL 25 MG TAB PO SCH ×2 (11:09→21:43)
[2018-11-01] MEDS: CHOLECALCIFEROL (VITD3) 1,000 UNIT TAB PO SCH (11:09)
--- NOTE | 2018-11-01 11:26 | NUR ---
Dr. Hoang in to see patient as hospitalist. Dr. Hoang states patient can have a midline inserted.
[2018-11-01 11:32] LABS: BUN/Creatinine Ratio 19.5; Potassium 4.4 mmol/L (3.5-5.1)
--- NOTE | 2018-11-01 11:32 | NUR ---
PICC line RN informed that patient needs a midline.
--- NOTE | 2018-11-01 11:43 | NUR ---
Patient upgraded to telemetry. Report given to ELDA Lundberg.
[2018-11-01] MEDS: METOLAZONE 5 MG TAB PO SCH (11:53)
--- NOTE | 2018-11-01 11:55 | NUR ---
RECEIVED PATIENT FROM ANIRUDH SCHROEDER. PT HAS CRITICAL PH OF 7.225 AND A HMG OF 7.1. BP JUST REPORTED BY ANIRUDH 172/72. CALLED PBX TO PAGE DR. LA. WILL CONTINUE TO MONITOR.
--- NOTE | 2018-11-01 12:15 | NUR ---
PT REQUESTS BROCK CATHETER BE PUT IN AFTER LUNCH. WILL CONTINUE TO MONITOR.
--- NOTE | 2018-11-01 12:49 | NUR ---
Dr. Hoang called back. MD informed pt PH is a critical 7.225, bp is 179/72, and hemoglobin is 7. MD aware, no new orders. WANTS MIDLINE.
[2018-11-01 13:00] VITALS: BP 179/72
--- NOTE | 2018-11-01 13:08 | NUR ---
PT IV DISCONTINUED, CATHETER IN TACT AND PRESSURE DRESSING APPLIED. ATTEMPTED IV START, UNSUCCESSFUL, CALLED CHARGE, CHARGE WILL ATTEMPT. CALLED PICC NURSE FOR MIDLINE, SHE REPORTS SHE IS ON HER WAY. UNABLE TO START PT IV MEDS AT THIS TIME, NO IV ACCESS. GAVE PRN BP MEDICATION FOR HIGH BP.
[2018-11-01 13:57] LABS: INR 0.92 (0.9-1.15); Prothrombin Time 9.9 sec (9.27-12.13)
--- NOTE | 2018-11-01 14:07 | NUR ---
Midline Placement to right basilic. 18g/10cm in length. Easily flushed, blood return obtained from single port. Tolerated well. Primary RN notified.
--- NOTE | 2018-11-01 14:45 | NUR ---
PT RECEIVED MIDLINE BREONNA 18 GAUGE. CHARGE PUT IN IV RFA 22 GAUGE. PT TOLERATED PROCEDURE WELL. PT HOOKED UP TO TELE BOX AND IS NOW GOING FOR THORACENTESIS. WILL ADMINISTER HER IV MEDS AND INSERT BROCK WHEN PT RETURNS TO FLOOR.
--- NOTE | 2018-11-01 14:45 | NUR ---
THORACENTESIS DONE IN ULTRASOUND BY DR BURRIS. VSS 159/83-63-18-98%. 1000ML OF PLEURAL FLUID REMOVED AND SENT TO LAB. POST CXR DONE
--- NOTE | 2018-11-01 15:26 | NUR ---
PT RETURNED FROM THORACENTISIS. PT WANTS TO WAIT "A LITTLE BIT," BEFORE PUTTING IN THE BROCK CATHETER. PT REQUESTS SOUP BE WARMED. WARMED HER SOUP. WILL CONTINUE TO MONITOR.
--- NOTE | 2018-11-01 15:36 | NUR ---
PT PLACED ON IV MEDICATIONS. WILL CONTINUE TO MONITOR.
[2018-11-01] MEDS: BUMETANIDE INJECTION 25 MG in GIVE UN-DILUTED 0 ML IV SCH (15:46)
--- NOTE | 2018-11-01 16:08 | NUR ---
ATTEMPTED TO INSERT BROCK CATHETER, PT REQUESTS,"WAIT A MINUTE!!! I CANT DO IT NOW. I HAVE TO GO TO THE BATHROOM AGAIN!!"
[2018-11-01] MEDS: traMADol HCL 50 MG TAB PO PRN (16:16)
--- NOTE | 2018-11-01 16:30 | NUR ---
INSERTED BROCK CATHETER AFTER ONE ATTEMPT. 400 MLS CLEAR YELLOW URINE RETURNED IN BAG, PT ALSO HAD A BOWEL MOVEMENT. PT TOLERATED PROCEDURE WELL. PT REPORTS CHEST PAIN AND REPORTS DIFFICULTY BREATHING. TRAMADOL GIVEN AND STAT EKG DONE. EKG READS NSR HR 62 BPM. PT REPORTS CHEST PAIN SUBSIDING NOW THAT SHE IS SITTING IN CHAIR. CALLED PBX AND PAGED DR. LA TO NOTIFY HIM OF CHEST PAIN, WILL CONTINUE TO MONITOR. HAD DIFFICULTY ADMINISTERING PT ALBUMIN. PT HAD NO IV ACCESS AND THEN PT HAD THORACENTESIS. ADMINISTERING MORNING DOSE. IV KEPT READING HIGH PRESSURE. LINE CLEARED AND IV SITE FLUSHED. STILL IV BEEPING. ASKED ANIRUDH RN FOR HELP. IV CHECKED BY ANIRUDH AND IS NOW RUNNING. CALLED PHARMACY AND ASKED TO RESCHEDULE PM ALBUMIN. PHARMACY REPORTS THEY WILL RESCHEDULING PT PM DOSE.
[2018-11-01 17:00] VITALS: BP_SYST 119; BP_SYST 130; BP_DIAS 55; BP_DIAS 63
--- NOTE | 2018-11-01 18:18 | NUR ---
DR Hoang called back. notified of pt chest pain and EKG. MD also notified of late albumin dose. Will continue to monitor.
--- NOTE | 2018-11-01 19:30 | NUR ---
Opening Shift Note Assumed care of patient, awake and alert X4. Family at bedside. Patient sitting in chair. Refusing to go in bed. Patient educated on importance of bed, also patient has history of seizures. Patient verbalized understanding continued to refuse. Despite continued education patient continues to refuse. No S/S of distress/SOB on 3L N/C. Patient has Oconnell for strict output measurement, draining to kinks noted. BSC next to chair. Left AC has reddened raised where a IV was discontinued a couple days ago per patient report. Area warm to touch and sensitive. Pulses 2+, no numbness in hand, capillary refill less than 3 sec. Patient requested warm pack provided warm pack. will continue to monitor. Instructed on POC and to call for assist PRN. call light within reach, Will continue to monitor for changes Q1hr and PRN.
[2018-11-01] MEDS: INSULIN LANTUS (GLARGINE) 1 /0.01ml (100units/ml) SC SCH (21:20)
--- NOTE | 2018-11-01 21:20 | NUR ---
Respiratory note: PT ASSESSED FOR PRN MED NEB TX. HR 60, RR 18, SPO2 98% ON 4L NC, BS CLEAR. NO SIGN SOF ANY RESPIRATORY DISTRESS NOTED. ADVISED PT TO PLEASE CALL IF NEEDED.
[2018-11-01] MEDS: TEMAZEPAM 15 MG CAP PO PRN (21:44)
[2018-11-01 22:00] VITALS: BP 136/56
[2018-11-02] MEDS: ACCU-CHEK COMFORT CURVE STRIP VI SCH ×5 (00:08→22:50)
[2018-11-02] MEDS: ALBUMIN 25% 100 ML IV SCH ×2 (00:12→09:44)
[2018-11-02] MEDS: InsuLIN REG 1unit/0.01ml Soln (100units/ml) SC SCH ×5 (00:38→22:00)
[2018-11-02] MEDS: traMADol HCL 50 MG TAB PO PRN ×2 (04:37→14:30)
[2018-11-02 05:10] VITALS: BP 143/71
[2018-11-02] MEDS: INSULIN LISPRO (HUMAN) 100 UNITS/ML ML SC SCH ×2 (06:32→11:44)
--- NOTE | 2018-11-02 06:33 | NUR ---
Blood Glucose 88, Will hold 0700 Humalog 10 Units
[2018-11-02 07:21] LABS: Basophils # (auto) 0 uL; Eosinophils # (auto) 0.1 uL; Hemoglobin 8.2 g/dL (12.2-16.2); Lymphocytes # (auto) 1.2 uL; Monocytes # (auto) 0.5 uL
[2018-11-02 07:24] LABS: Basophils % (auto) 0.4 % (0.0-2.0); Eosinophils % (auto) 1.8 % (0.0-7.0); Hematocrit 24.1 % (36.0-46.0); Lymphocytes % (auto) 25.6 % (10.0-50.0); Mean Corpuscular Hgb Conc. 34.2 g/dL (32.0-36.0); Mean Corpuscular Volume 99.5 fL (80.0-100.0); Monocytes % (auto) 11.3 % (0.0-12.0); Neutrophils # (auto) 2.8 uL; Neutrophils % (auto) 60.9 % (37.0-80.0); Platelet Count (auto) 180 10^3/uL (140-450); Red Blood Cells 2.42 10^6/uL (4.0-5.20); Red Cell Distribution Width 16.6 % (11.8-14.3); White Blood Cell 4.6 10^3/uL (4.4-10.8)
[2018-11-02] MEDS: ACETAMINOPHEN 500 MG TAB PO PRN ×2 (07:35→18:02)
[2018-11-02 07:47] LABS: Albumin 2.7 g/dL (3.4-5.0); Calcium 8.2 mg/dL (8.5-10.1); Potassium 3.9 mmol/L (3.5-5.1)
[2018-11-02 07:49] LABS: Bilirubin, Total 0.3 mg/dL (0.2-1.0); Total Protein 6.1 g/dL (6.4-8.2)
[2018-11-02 09:00] VITALS: BP 164/66
[2018-11-02] MEDS: hydrALAZINE HCL 25 MG TAB PO SCH ×2 (09:41→22:49)
[2018-11-02] MEDS: CHOLECALCIFEROL (VITD3) 1,000 UNIT TAB PO SCH (09:41)
[2018-11-02] MEDS: PANTOPRAZOLE 40 MG TAB PO SCH (09:41)
[2018-11-02] MEDS: METOLAZONE 5 MG TAB PO SCH (09:42)
[2018-11-02] MEDS: METOPROLOL TARTRATE 50 MG TAB PO SCH ×2 (09:42→22:49)
[2018-11-02] MEDS: ENOXAPARIN SOD 30 MG/0.3 ML SYRINGE SC SCH (09:42)
[2018-11-02] MEDS ORDERED: LORazepam 2MG/ML-1ML VIAL IV PRN (11:30)
[2018-11-02] MEDS ORDERED: DEXTROSE (50%) 50ML SYRG IV PRN (11:30)
[2018-11-02] MEDS: BUMETANIDE INJECTION 25 MG in GIVE UN-DILUTED 0 ML IV SCH (12:20)
--- NOTE | 2018-11-02 12:44 | NUR ---
Nutrition Follow-up Notes Wt.: 70.5 kg Pt's awake and oriented when rounded this am. per pt no N/V and with good appetite. pt is currently on CCHO 60 gm diet with adequate PO of 75% x 2 days per RN doc Est. Needs BW [id number] kcal (23-25 kcal/kgBW), 57-72 gms pro (0.8-1.0 gms/kgBW r/t elev RFT). Will continue to monitor pertinent labs and reassess nutrient need prn Labs: BUN 55 H, CREAT 2.62 H, CA 8.2 L, ALB 2.7 L. Skin: Bradford scale 20, low risk, skin intact per hospital receiving clerk. GI: Pt had 3 BM today per hospital receiving clerk. PES: Altered nutrition related lab values r/t current/chronic medical condition aeb elev RFT A1C, mod hypoalb, hypocalcemia, hyperglycemia Will continue to monitor PO intake, skin status, pertinent labs and weight trend. F/u in 3 to 5 days. Rec.: 1.) Continue close supervision during meals. 2.) If Albumin level continues trending down, consider Prostat 1 pkt BID if RFt improve. 3.) Consider renal specific 60 gm protein 2 gm na if RFT continue to elev. 4) Refer pt to CDE/RD for further nutrition education and weight monitoring upon discharge. 4.) Continue current plan of care.
[2018-11-02 13:00] VITALS: BP 134/57
--- NOTE | 2018-11-02 13:55 | NUR ---
Respiratory note: ROUTINE PRN TX CHECK. HR 86, RR 18, POX 100%, BREATH SOUNDS ARE CLEAR. NO SOB OR DISTRESS NOTED. PT WAS NOTIFY TO HAVE RN PAGE RT FOR MN TX. CHANGED PT BUBBLE HUMIDIFIER WITHOUT INCIDENT.
[2018-11-02 17:00] VITALS: BP 130/58
--- NOTE | 2018-11-02 19:10 | NUR ---
Opening Shift Note Assumed care of patient from day shift RN Magdalena. Pt is awake and alert and oriented x4, sitting in chair next to bed. Call dolan within reach. No S/S of distress/SOB. Pt complains of pain /, no pain medications due at this time, heat packs given for generalized body pain. Instructed on POC and to call for assist PRN, will continue to monitor for changes Q1hr and PRN.
[2018-11-02 22:00] VITALS: BP 162/69
[2018-11-02] MEDS: INSULIN LANTUS (GLARGINE) 1 /0.01ml (100units/ml) SC SCH (22:00)
--- NOTE | 2018-11-02 23:50 | NUR ---
BP 179/74 PT ASYMPTOMATIC, NO S/S DISTRESS. ADMINISTERED CLONIDINE. REASSESSMENT BP 164/60 PT ASYMPTOMATIC, NO S/S DISTRESS NOTED, WILL CONTINUE TO MONITOR BP.
[2018-11-03] MEDS: cloNIDine HCL 0.1 MG TAB PO PRN (00:36)
[2018-11-03] MEDS: TEMAZEPAM 15 MG CAP PO PRN ×2 (00:38→22:36)
[2018-11-03] MEDS: ACETAMINOPHEN 500 MG TAB PO PRN ×3 (00:39→21:03)
[2018-11-03] MEDS: traMADol HCL 50 MG TAB PO PRN (03:03)
--- NOTE | 2018-11-03 04:30 | NUR ---
BP 172/63 CLONIDINE NOT DUE AT THIS TIME, IV HYDRALAZINE NOT AVAILABLE IN MEDICATION PYXIS. NO S/S DISTRESS, PT ASYMPTOMATIC. WILL CONTINUE TO MONITOR.
[2018-11-03 05:20] VITALS: BP 172/63
[2018-11-03] MEDS: INSULIN LISPRO (HUMAN) 100 UNITS/ML ML SC SCH ×3 (06:12→16:55)
[2018-11-03] MEDS: InsuLIN REG 1unit/0.01ml Soln (100units/ml) SC SCH ×4 (06:13→21:59)
[2018-11-03] MEDS: ACCU-CHEK COMFORT CURVE STRIP VI SCH ×4 (06:13→22:46)
--- NOTE | 2018-11-03 06:45 | NUR ---
PT C/O OF HEADACHE PAIN 07/25. BP 160/73 HR 63. TRAMADOL NOT DUE AT THIS TIME. ADMINISTERED TYLENOL.
[2018-11-03 06:47] LABS: Calcium 8.2 mg/dL (8.5-10.1); Potassium 3.6 mmol/L (3.5-5.1)
[2018-11-03 09:00] VITALS: BP 161/62
--- NOTE | 2018-11-03 09:23 | NUR ---
OPENING CARE ENDORSED BY CORINNE THOMPSON AT THIS TIME PATIENT AWAKE, ON BEDSIDE COMMODE, NO DISTRESS NOTED AT THIS TIME WILL F/U WITH MORNING ASSESSMENT.
[2018-11-03] MEDS ORDERED: POTASSIUM CHL 20 Meq TABLET PO ONE (09:30)
[2018-11-03] MEDS: POTASSIUM CHL 20 Meq TABLET PO SCH (10:00)
[2018-11-03] MEDS: METOPROLOL TARTRATE 50 MG TAB PO SCH ×2 (10:00→21:58)
[2018-11-03] MEDS: CHOLECALCIFEROL (VITD3) 1,000 UNIT TAB PO SCH (10:48)
[2018-11-03] MEDS: hydrALAZINE HCL 25 MG TAB PO SCH ×2 (10:48→21:57)
[2018-11-03] MEDS: NIFEdipine ER 30 MG TAB PO SCH (10:49)
[2018-11-03] MEDS: PANTOPRAZOLE 40 MG TAB PO SCH (10:49)
[2018-11-03] MEDS: METOLAZONE 5 MG TAB PO SCH (10:50)
[2018-11-03] MEDS: ENOXAPARIN SOD 30 MG/0.3 ML SYRINGE SC SCH (10:50)
--- NOTE | 2018-11-03 12:00 | NUR ---
PHYSICAL THERAPY AT BEDSIDE
[2018-11-03 14:20] VITALS: BP 134/62
[2018-11-03 17:00] VITALS: BP 135/57
[2018-11-03] MEDS: BUMETANIDE (0.25 MG/ML) INJ 10ML IV SCH (17:22)
--- NOTE | 2018-11-03 19:40 | NUR ---
Opening Shift Note Assumed care of patient, awake and alert oriented x4. No S/S of distress/SOB noted. Bed is in lowest locked position with bed rails up x2 and call light is within reach of the patient. Instructed on POC and to call for assist PRN.
[2018-11-03] MEDS: INSULIN LANTUS (GLARGINE) 1 /0.01ml (100units/ml) SC SCH (21:59)
[2018-11-03 22:00] VITALS: BP 147/71
--- NOTE | 2018-11-04 | NUR ---
Patient frustrated, having bowel movements all night: Patient is frustrated that she has been having bowel movements all night. Stated that she hadn't been able to get sleep because of it even after receiving sleep medication. Patient expressed frustration and requested to have some crackers. Crackers were given to the patient. Instructed to call with call light if they need any assistance to the bedside commode. Call light is within reach of the patient
[2018-11-04 05:42] VITALS: BP 134/59
[2018-11-04] MEDS: INSULIN LISPRO (HUMAN) 100 UNITS/ML ML SC SCH ×3 (06:53→16:47)
[2018-11-04] MEDS: BUMETANIDE (0.25 MG/ML) INJ 10ML IV SCH ×2 (06:54→17:44)
[2018-11-04] MEDS: ACCU-CHEK COMFORT CURVE STRIP VI SCH ×4 (06:55→22:55)
[2018-11-04] MEDS: InsuLIN REG 1unit/0.01ml Soln (100units/ml) SC SCH ×4 (06:55→22:40)
[2018-11-04 07:13] LABS: Anion Gap 10 (5-15); BUN/Creatinine Ratio 19.3; Blood Urea Nitrogen 57 mg/dL (7-18); Calcium 7.6 mg/dL (8.5-10.1); Carbon Dioxide 21 mmol/L (21-32); Chloride 105 mmol/L (98-107); GFR African American 21 mL/min; GFR Non-African American 17 mL/min; Glucose 186 mg/dL (74-106); Potassium 4.8 mmol/L (3.5-5.1); Sodium 136 mmol/L (136-145)
--- NOTE | 2018-11-04 07:23 | NUR ---
Closing note: Patient is awake alert oriented x4. No S/S of distress SOB noted. Care endorsed to day shift nurse.
--- NOTE | 2018-11-04 07:40 | NUR ---
opening patient in bed asleep, bed in lowest position, call light within reach. no distress noted at this time will f/u with morning assessment.
[2018-11-04 08:30] VITALS: BP 128/58
[2018-11-04] MEDS: METOPROLOL TARTRATE 50 MG TAB PO SCH ×2 (10:00→22:54)
[2018-11-04] MEDS: POTASSIUM CHL 20 Meq TABLET PO SCH (10:00)
[2018-11-04] MEDS: METOLAZONE 5 MG TAB PO SCH (10:36)
[2018-11-04] MEDS: hydrALAZINE HCL 25 MG TAB PO SCH ×2 (10:37→22:36)
[2018-11-04] MEDS: PANTOPRAZOLE 40 MG TAB PO SCH (10:37)
[2018-11-04] MEDS: NIFEdipine ER 30 MG TAB PO SCH (10:37)
[2018-11-04] MEDS: ENOXAPARIN SOD 30 MG/0.3 ML SYRINGE SC SCH (10:38)
[2018-11-04] MEDS: CHOLECALCIFEROL (VITD3) 1,000 UNIT TAB PO SCH (10:51)
--- NOTE | 2018-11-04 12:18 | NUR ---
Pt was sitting up in chair, pt was able to complete 10 reps of ther ex: glute sets, knee ext, hip abd/add, clams, quad sets and T Y and I exercises for biljeremiah USharon's Pt requested for PT to come for gait, pt was fatigued after working on ther ex Addendum: 11/04/18 at 1220 by Leonor Ewing PT Amended: Links added.
[2018-11-04 12:30] VITALS: BP 120/53
[2018-11-04 17:33] VITALS: BP 123/63
--- NOTE | 2018-11-04 18:43 | NUR ---
closing patient in bed, bed in lowest position, call light within reach. No distress noted at this time. at bedside will endorse care to noc nurse
--- NOTE | 2018-11-04 19:40 | NUR ---
Opening Shift Note Assumed care of patient, awake and alert oriented x4 and sitting up on chair at the bedside. No S/S of distress/SOB noted, seizure precautions are in place. Call light is within reach of the patient and instructed to call for assistance if needed when getting up to use the bedside commode. Instructed on POC and to call for assist PRN.
[2018-11-04 21:46] VITALS: BP 140/69
--- NOTE | 2018-11-04 22:00 | NUR ---
Educated patient about laying in bed: Educated the patient about the benefits of laying in bed and the safety considerations of laying in bed as opposed to sitting in chair all night. Patient states "I cant lay on the bed, I am more comfortable sitting up in the chair." Patient refused to lay on bed at this time and wants to sleep on chair despite education given. Will continue to educate the patient throughout shift and encourage laying on the bed.
[2018-11-04] MEDS: INSULIN LANTUS (GLARGINE) 1 /0.01ml (100units/ml) SC SCH (22:40)
[2018-11-04] MEDS: LORazepam 0.5 MG TAB PO PRN (22:53)
--- NOTE | 2018-11-05 02:45 | NUR ---
Patient moved to bed: Convinced patient to lay on bed instead of sitting in chair for better monitoring of the patient and safer transition from bed to bed side commode. Reorganized patients room to patients liking so that they are comfortable and safe.
--- NOTE | 2018-11-05 04:34 | NUR ---
Patient back on chair: Patient moved back to chair to sleep. Patient states "I don't like the bed it hurts my back too much so I went back to my chair." Educated patient about the safety considerations about being on the bed more and offered to have the bed in high folwers position as she likes it on the chair. Patient did not want to be on bed despite education. Instructed to use call light when needing help with transportation from chair to bed or bedside commode. Patient has anti slip stalkings in place. Stress importance to use call light to prevent falls.
[2018-11-05 05:00] VITALS: BP 149/68
[2018-11-05] MEDS: traMADol HCL 50 MG TAB PO PRN (05:16)
[2018-11-05] MEDS: BUMETANIDE (0.25 MG/ML) INJ 10ML IV SCH (05:33)
[2018-11-05] MEDS: InsuLIN REG 1unit/0.01ml Soln (100units/ml) SC SCH (06:33)
[2018-11-05] MEDS: INSULIN LISPRO (HUMAN) 100 UNITS/ML ML SC SCH ×3 (06:35→17:26)
[2018-11-05] MEDS: ACCU-CHEK COMFORT CURVE STRIP VI SCH ×4 (06:35→22:33)
--- NOTE | 2018-11-05 06:53 | NUR ---
Closing note: Patient is awake alert oriented x4 with call light in reach of the patient. Patient is sitting in bed with no S/S of distress/SOB noted. Instructed to use call light if they need anything. Will endorse care to day shift nurse
[2018-11-05 07:06] LABS: Potassium 4.4 mmol/L (3.5-5.1)
[2018-11-05 07:11] LABS: BUN/Creatinine Ratio 20.6
--- NOTE | 2018-11-05 08:00 | NUR ---
Called/paged Hospitalist wafer production lead worker called re:increase of BUN level. Waiting for call back. Continue care.
--- NOTE | 2018-11-05 08:00 | NUR ---
Opening Shift Note Assumed care of patient, awake and alert x4. Patient sitting in chair bedsides bed. No S/S of distress/SOB or pain. Instructed on POC and to call for assist PRN, will continue to monitor for changes Q1hr and PRN. Bed is in the lowest position and call light is within reach.
[2018-11-05 08:39] VITALS: BP 168/73
--- NOTE | 2018-11-05 10:07 | NUR ---
Dr. Tamayo aware of BUN level of 71 Dr. Tamayo orders urine sodium, urine creatinine, urine protein.Will send when can.
[2018-11-05] MEDS: ENOXAPARIN SOD 30 MG/0.3 ML SYRINGE SC SCH (10:27)
[2018-11-05] MEDS: NIFEdipine ER 30 MG TAB PO SCH (10:28)
[2018-11-05] MEDS: PANTOPRAZOLE 40 MG TAB PO SCH (10:29)
[2018-11-05] MEDS: METOPROLOL TARTRATE 50 MG TAB PO SCH ×2 (10:29→22:32)
[2018-11-05] MEDS: CHOLECALCIFEROL (VITD3) 1,000 UNIT TAB PO SCH (10:30)
[2018-11-05] MEDS: METOLAZONE 5 MG TAB PO SCH (10:30)
[2018-11-05] MEDS: POTASSIUM CHL 20 Meq TABLET PO SCH (10:30)
--- NOTE | 2018-11-05 10:45 | NUR ---
Urine sample sent for testing via bullet. Will continue to monitor
--- NOTE | 2018-11-05 11:00 | NUR ---
Patient ambulating with walker and assistance from PT at this
[2018-11-05 11:19] LABS: Protein, Urine 436.6 mg/dL (0.0-11.9)
--- NOTE | 2018-11-05 11:45 | NUR ---
Dr. Vazquez aware of patient's ordered medications Dr. Vazquez aware of patient's ordered medications: Insulin Regular mild protocol ACHS, Humalog 10 units AC and Lantus 15 units HS.
[2018-11-05] MEDS: cloNIDine HCL 0.1 MG TAB PO PRN (12:31)
[2018-11-05] MEDS ORDERED: ENOXAPARIN SOD 30 MG/0.3 ML SYRINGE SC ONE (12:45)
[2018-11-05 13:00] VITALS: BP 180/74
[2018-11-05] MEDS: hydrALAZINE HCL 25 MG TAB PO SCH ×2 (14:25→22:31)
--- NOTE | 2018-11-05 16:40 | NUR ---
Lead Recoverer Parul Melton paged Lead Recoverer Parul Melton paged per family request. Family (Bobozzie [phone]) would like more information regarding insurance and physician options. José Antonio prefers Dr. Richards for Macie's follow up appointments.
[2018-11-05 17:00] VITALS: BP 149/78
--- NOTE | 2018-11-05 19:10 | NUR ---
Opening Note Received change of shift report form day shift RN. Patient is awake, alert, and oriented x4. No signs or symptoms of distress at this time. Patient states she is feeling very anxious. Patient denies pain at this time. Patient is on 3L NC. Reviewed plan of care, patient verbalized understanding. at bedside. Bed in low and locked position, call light within reach. Will continue to monitor Q1 hour and PRN.
[2018-11-05] MEDS: LORazepam 0.5 MG TAB PO PRN (19:40)
[2018-11-05 22:00] VITALS: BP 112/54
[2018-11-05] MEDS ORDERED: INSULIN LANTUS (GLARGINE) 1 /0.01ml (100units/ml) SC SCH (22:00)
--- NOTE | 2018-11-06 00:08 | NUR ---
Patient resting comfortably with eyes closed, sitting up in bedside chair. Call light within reach. Will continue to monitor Q1 hour and PRN.
[2018-11-06] MEDS: LORazepam 0.5 MG TAB PO PRN ×3 (01:18→18:42)
[2018-11-06 06:04] VITALS: BP 141/53
[2018-11-06] MEDS: hydrALAZINE HCL 25 MG TAB PO SCH ×3 (06:12→22:01)
[2018-11-06] MEDS: INSULIN LISPRO (HUMAN) 100 UNITS/ML ML SC SCH ×3 (06:12→17:00)
[2018-11-06] MEDS: ACCU-CHEK COMFORT CURVE STRIP VI SCH ×4 (06:13→22:05)
[2018-11-06] MEDS: traMADol HCL 50 MG TAB PO PRN ×2 (06:15→22:02)
[2018-11-06 06:40] LABS: BUN/Creatinine Ratio 23.4; Calcium 7.6 mg/dL (8.5-10.1); Potassium 4.2 mmol/L (3.5-5.1)
--- NOTE | 2018-11-06 07:20 | NUR ---
Closing Note Report given to dayshift RN. Patient is resting in chair at bedside with eyes closed. No signs or symptoms of distress noted at this time.
--- NOTE | 2018-11-06 07:45 | NUR ---
Opening Shift Note Assumed care of patient, awake and alert. No S/S of distress/SOB or pain. Sitting up in chair, eating breakfast. Call light within reach, instructed on POC and to call for assist PRN, will continue to monitor for changes Q1hr and PRN.
[2018-11-06 08:00] VITALS: BP 141/56
[2018-11-06 09:52] LABS: Basophils # (auto) 0 uL; Basophils % (auto) 0.3 % (0.0-2.0); Eosinophils # (auto) 0.1 uL; Hematocrit 21.9 % (36.0-46.0); Hemoglobin 7.3 g/dL (12.2-16.2); Lymphocytes # (auto) 1.3 uL; Mean Corpuscular Hemoglobin 33.2 pg (28.0-32.0); Monocytes # (auto) 0.7 uL; Monocytes % (auto) 12.9 % (0.0-12.0); Red Blood Cells 2.19 10^6/uL (4.0-5.20); Red Cell Distribution Width 16.6 % (11.8-14.3)
[2018-11-06 09:53] LABS: Eosinophils % (auto) 2.2 % (0.0-7.0); Lymphocytes % (auto) 24.6 % (10.0-50.0); Mean Corpuscular Hgb Conc. 33.3 g/dL (32.0-36.0); Mean Corpuscular Volume 99.8 fL (80.0-100.0); Neutrophils # (auto) 3.1 uL; Platelet Count (auto) 174 10^3/uL (140-450); White Blood Cell 5.2 10^3/uL (4.4-10.8)
[2018-11-06] MEDS: METOLAZONE 5 MG TAB PO SCH (10:00)
[2018-11-06] MEDS: METOPROLOL TARTRATE 50 MG TAB PO SCH ×2 (10:00→22:02)
[2018-11-06] MEDS: CHOLECALCIFEROL (VITD3) 1,000 UNIT TAB PO SCH (10:00)
[2018-11-06] MEDS ORDERED: ENOXAPARIN SOD 30 MG/0.3 ML SYRINGE SC SCH ×2 (10:00)
[2018-11-06] MEDS: BUMETANIDE (0.25 MG/ML) INJ 10ML IV SCH (10:00)
[2018-11-06] MEDS: POTASSIUM CHL 20 Meq TABLET PO SCH (10:01)
[2018-11-06] MEDS: PANTOPRAZOLE 40 MG TAB PO SCH (10:01)
[2018-11-06] MEDS: NIFEdipine ER 30 MG TAB PO SCH (10:02)
[2018-11-06 12:22] VITALS: BP 124/53
[2018-11-06 16:13] VITALS: BP 120/58
--- NOTE | 2018-11-06 19:05 | NUR ---
Opening Note Received change of shift report form day shift RN. Patient is awake, alert, and oriented x4, sitting up in chair. No signs or symptoms of distress noted at this time. Patient states she is feeling very anxious. Patient was medicated by day shift RN for anxiety. Patient denies pain at this time. Patient is on 3L NC. Reviewed plan of care, patient verbalized understanding. at bedside. Bed in low and locked position, call light within reach. Will continue to monitor Q1 hour and PRN.
[2018-11-06] MEDS: PROMETHAZINE HCL 25 MG/ML 1ML IV PRN (20:53)
--- NOTE | 2018-11-06 21:00 | NUR ---
Patient complains of feeling anxious and dizzy. Instructed patient to lay in bed if she is dizzy. Patient refuses to lay in bed, will only sit up in chair. Patient states she can't breath when she lays in bed. Educated patient that it is safer for her to be in bed. Patient was upset, and refused to move to bed. Will continue to monitor Q1 hour and PRN
[2018-11-06 22:00] VITALS: BP 121/54
[2018-11-06] MEDS: INSULIN LANTUS (GLARGINE) 1 /0.01ml (100units/ml) SC SCH (22:05)
--- NOTE | 2018-11-07 05:30 | NUR ---
Low Blood Glucose Patient called for assistance to use the bedside commode, once one the commode patient stated "I feel like my blood sugar is low." Patient was put back into bed, blood glucose was checked. First one was 32, checked again immediately it was 34. Patient was given two orange juices, with a sugar packet. Patient is alert and talking. No signs or symptoms of distress. Will stay with patient and continue to monitor.
[2018-11-07 05:33] VITALS: BP 133/56
[2018-11-07] MEDS: ACCU-CHEK COMFORT CURVE STRIP VI SCH ×4 (06:28→21:44)
[2018-11-07] MEDS: INSULIN LISPRO (HUMAN) 100 UNITS/ML ML SC SCH ×3 (06:28→17:00)
[2018-11-07] MEDS: hydrALAZINE HCL 25 MG TAB PO SCH ×3 (06:28→21:30)
--- NOTE | 2018-11-07 06:30 | NUR ---
Rechecked Blood Glucose Blood glucose rechecked and is currently 57. Patient is awake, alert and oriented x4. No signs of distress noted. Patient asked for 2 more orange juices. States "that is what I do at home when my sugar gets low" Will continue to monitor.
--- NOTE | 2018-11-07 07:00 | NUR ---
Blood Glucose Rechecked Blood glucose is currently 93. Patient states she is feeling better. Sitting up in chair, No signs of distress. On 3L NC. Will continue to monitor.
--- NOTE | 2018-11-07 07:10 | NUR ---
Closing Note Report given to dayshift RN. Patient is resting in chair at bedside. No signs or symptoms of distress noted at this time.
[2018-11-07] MEDS: LORazepam 0.5 MG TAB PO PRN (07:13)
--- NOTE | 2018-11-07 08:30 | NUR ---
PATIENT IS REFUSING LAB DRAW THIS MORNING, HISTOLOGICAL ILLUSTRATOR VERBALIZED SHE WILL RETURN AND ATTEMPT AGAIN.
[2018-11-07 09:00] VITALS: BP 143/71
[2018-11-07] MEDS: METOPROLOL TARTRATE 50 MG TAB PO SCH ×2 (10:00→21:31)
[2018-11-07] MEDS: CHOLECALCIFEROL (VITD3) 1,000 UNIT TAB PO SCH ×2 (10:00→21:30)
[2018-11-07] MEDS: NIFEdipine ER 30 MG TAB PO SCH (10:01)
[2018-11-07] MEDS: PANTOPRAZOLE 40 MG TAB PO SCH (10:01)
[2018-11-07] MEDS: METOLAZONE 5 MG TAB PO SCH (10:01)
[2018-11-07] MEDS: POTASSIUM CHL 20 Meq TABLET PO SCH (10:01)
[2018-11-07] MEDS: BUMETANIDE (0.25 MG/ML) INJ 10ML IV SCH (10:02)
[2018-11-07 11:35] LABS: Albumin 2.6 g/dL (3.4-5.0); Calcium 8.3 mg/dL (8.5-10.1); Potassium 5.3 mmol/L (3.5-5.1)
[2018-11-07 11:39] LABS: BUN/Creatinine Ratio 24.1; Bilirubin, Total 0.2 mg/dL (0.2-1.0); Total Protein 6.1 g/dL (6.4-8.2)
--- NOTE | 2018-11-07 12:11 | NUR ---
Critical BUN level of 84, paged Dr. Hoang
--- NOTE | 2018-11-07 12:22 | NUR ---
NOTIFIED DR. SCHMITZ REGARDING CRITICAL LAB VALUES OF BUN, NEW ORDERS RECEIVED.
[2018-11-07] MEDS: SODIUM CHLORIDE 0.9% 1,000 ML IV SCH (12:30)
[2018-11-07 13:00] VITALS: BP 155/67
[2018-11-07 13:31] LABS: INR 0.92 (0.9-1.15); Prothrombin Time 9.9 sec (9.27-12.13)
[2018-11-07] MEDS: ALPRAZolam 0.5 MG TAB PO PRN (14:55)
--- NOTE | 2018-11-07 14:57 | NUR ---
Nutrition Follow-up Notes Wt.: 72.3 kg Pt's sleeping with no family by beside. per records pt s/p thoracentesis. pt is currently on CCHO 60 gm diet with adequate PO of 75% x 4 per RN doc Est. Needs BW [id number] kcal (23-25 kcal/kgBW), 57-72 gms pro (0.8-1.0 gms/kgBW r/t elev RFT). Will continue to monitor pertinent labs and reassess nutrient need prn Labs: BUN 78 H, CREAT 3.33 H, GLU 233 H, CA 7.6 L. Skin: Bradford scale 20, low risk, skin intact per special education tutor. GI: Pt had 2 BM today per special education tutor. PES: Altered nutrition related lab values r/t current/chronic medical condition aeb elev RFT A1C, mod hypoalb, hypocalcemia, hyperglycemia Will continue to monitor PO intake, skin status, pertinent labs and weight trend. F/u in 3 to 5 days. Rec.: 1.) Continue close supervision during meals. 2.) Consider renal specific 60 gm protein 2 gm na along with current diet as elev RFT. 3) Refer pt to CDE/RD for further nutrition education and weight monitoring upon discharge. 4.) Continue current plan of care.
[2018-11-07] MEDS ORDERED: ERGOCALCIFEROL 50,000 UNIT(1.25MG) CAP PO SCH (15:00)
--- NOTE | 2018-11-07 16:31 | NUR ---
Held NS, patient s/p thoracentesis.
[2018-11-07 17:00] VITALS: BP 130/69
--- NOTE | 2018-11-07 19:15 | NUR ---
Opening Shift Note Received change of shift report form day shift RN Yenni. Patient is awake, alert, and oriented x4, sitting up in chair. Patient states that she is unable to lie flat and breaths better sitting up in chair. No signs or symptoms of distress noted at this time. Patient states she is feeling very anxious. Patient was medicated by day shift RN for anxiety. Patient denies pain at this time. Patient is on 4L NC. Reviewed plan of care, patient verbalized understanding. at bedside. Bed in low and locked position, call light within reach. Will continue to monitor Q1 hour and PRN.
[2018-11-07] MEDS: TEMAZEPAM 15 MG CAP PO PRN (20:48)
--- NOTE | 2018-11-07 21:25 | NUR ---
Cholecalciferol D3 Pharmacy called and stated patient did not receive D3 today. Stated ok to give at this time. Will give with 2200 medications.
[2018-11-07 21:30] VITALS: BP 148/72
[2018-11-07] MEDS: INSULIN LANTUS (GLARGINE) 1 /0.01ml (100units/ml) SC SCH (21:43)
[2018-11-08] MEDS: SODIUM CHLORIDE 0.9% 1,000 ML IV SCH ×2 (01:00→13:30)
--- NOTE | 2018-11-08 01:03 | NUR ---
NS HELD PATIENT HAS GENERALIZED EDEMA, DIASTOLIC HF, POST THORACENTESIS WITH SOB AND DIMINISHED LUNG SOUNDS. WILL HOLD NS AT THIS TIME.
[2018-11-08 05:00] VITALS: BP 133/63
[2018-11-08] MEDS: ALPRAZolam 0.5 MG TAB PO PRN ×3 (06:10→18:53)
[2018-11-08] MEDS: hydrALAZINE HCL 25 MG TAB PO SCH ×3 (06:10→21:43)
[2018-11-08 06:31] LABS: Albumin 2.5 g/dL (3.4-5.0); Calcium 8.3 mg/dL (8.5-10.1); Potassium 4.7 mmol/L (3.5-5.1)
[2018-11-08 06:35] LABS: BUN/Creatinine Ratio 23.9; Bilirubin, Total 0.4 mg/dL (0.2-1.0); Phosphorus 4.3 mg/dL (2.5-4.90); Total Protein 5.9 g/dL (6.4-8.2); Uric Acid 9.5 mg/dL (2.6-6.0)
--- NOTE | 2018-11-08 06:40 | NUR ---
TIMOTHY HELD BLOOD GLUCOSE 102 NORMAL RANGE. WILL HOLD THE 12 UNITS OF LISPO FOR 0700
--- NOTE | 2018-11-08 06:54 | NUR ---
CRITICAL BUN OF 85 LAB CALLED WITH CRITICAL BUN OF 85 UP BY ONE FROM 84 YESTERDAY. DOCTOR BESSIE WAS PAGED YESTERDAY AND IS AWARE OF PATIENTS STATUS. WILL CONTINUE TO MONITOR PATIENT.
[2018-11-08] MEDS: INSULIN LISPRO (HUMAN) 100 UNITS/ML ML SC SCH ×3 (06:58→17:00)
[2018-11-08] MEDS: ACCU-CHEK COMFORT CURVE STRIP VI SCH ×4 (06:59→21:57)
--- NOTE | 2018-11-08 07:07 | NUR ---
Closing Note Report given and care transferred to dayshift RN. Patient is resting in chair at bedside. No signs or symptoms of distress noted at this time.
--- NOTE | 2018-11-08 07:45 | NUR ---
Opening Shift Note Assumed care of patient, awake, alert, and oriented x4. Patient sitting up in chair. Patient has right upper arm midline patent and flushing well, patient tolerating well. Patient has IV in right wrist 22g saline locked and flushing well, patient tolerating well. Patient has bilateral leg edema, tight, and +1 pitting. Patient is on 4L NC with no S/S of distress/SOB. Patient's skin is intact. Instructed on POC and to call for assist PRN, will continue to monitor for changes Q1hr and PRN. Bed in lowest locked position, call light within reach.
[2018-11-08 09:00] VITALS: BP 122/56
[2018-11-08] MEDS: PANTOPRAZOLE 40 MG TAB PO SCH (09:08)
[2018-11-08] MEDS: METOLAZONE 5 MG TAB PO SCH (09:08)
[2018-11-08] MEDS: NIFEdipine ER 30 MG TAB PO SCH (09:09)
[2018-11-08] MEDS: BUMETANIDE (0.25 MG/ML) INJ 10ML IV SCH (09:09)
[2018-11-08] MEDS: POTASSIUM CHL 20 Meq TABLET PO SCH (09:09)
[2018-11-08] MEDS: METOPROLOL TARTRATE 50 MG TAB PO SCH ×2 (09:11→21:44)
[2018-11-08] MEDS: traMADol HCL 50 MG TAB PO PRN ×2 (09:16→20:09)
[2018-11-08 13:00] VITALS: BP 119/49
[2018-11-08 17:00] VITALS: BP 133/61
--- NOTE | 2018-11-08 18:42 | NUR ---
END OF SHIFT PATIENT RESTING IN CHAIR. NO S/S OF DISTRESS. INSTRUCTED PATIENT TO CALL PRN. CALL LIGHT WITHIN REACH. ENDORSED CARE TO ELDA MCQUEEN.
--- NOTE | 2018-11-08 19:10 | NUR ---
Opening Shift Note Received change of shift report form day shift RN. Patient is awake, alert, and oriented x4, sitting up in chair. No signs or symptoms of distress noted at this time. Patient is on 4L NC. Reviewed plan of care, patient verbalized understanding. Bed in low and locked position, call light within reach. Will continue to monitor Q1 hour and PRN.
[2018-11-08] MEDS: TEMAZEPAM 15 MG CAP PO PRN (20:08)
[2018-11-08] MEDS: INSULIN LANTUS (GLARGINE) 1 /0.01ml (100units/ml) SC SCH (21:53)
[2018-11-08] MEDS: FLUTICASONE PROP NASAL SPR 0.05 % (50MCG) 16GM EACHNOSTRI SCH (21:55)
[2018-11-08 22:00] VITALS: BP 126/48
--- NOTE | 2018-11-08 22:33 | NUR ---
PATIENT STATUS PATIENT FOUND ON KNEES BESIDE BED. PATIENT STATES SHE WAS FEELING WEAK SO SHE SLIPPED DOWN TO HER KNEES. PATIENT DENIES FALLING. BP 111/60, P 62, R 23, 95% O2, AND T 97.8. PATIENT DENIES ANY PAIN. PATIENT ASSESSED. KNEES ARE PINK WITH NO SWELLING OR REDNESS AT THIS TIME. PATIENT IS STABLE AND ASYMPTOMATIC. DOCTOR AWARE. WILL CONTINUE TO MONITOR.
--- NOTE | 2018-11-08 22:40 | NUR ---
PATIENT EDUCATED TO CALL FOR ASSIST WHEN USING SHE NEEDS TO USE COMMODE. CALL LIGHT IS IN REACH.
--- NOTE | 2018-11-09 02:30 | NUR ---
BLOOD SUGAR PATIENT STATED THAT SHE IS HAVING BLURRY VISION AND FEELING WEIRD. BLOOD SUGAR TAKEN AND WAS 70. 2 OJ GIVEN. BLOOD SUGAR RECHECKED IN 20 MINUTES AND WAS 65. WILL CONTINUE TO MONITOR
--- NOTE | 2018-11-09 03:15 | NUR ---
BLOOD SUGAR ANOTHER OJ WAS GIVEN AND BLOOD SUGAR NOW 106. PATIENT STATES BLURRY VISION IS GONE AND THAT SHE IS FEELING MUCH BETTER. WILL CONTINUE TO MONITOR.
--- NOTE | 2018-11-09 03:30 | NUR ---
NON COMPLIANCE PATIENT REFUSES TO CALL FOR ASSISTANCE. SHE STATES THAT SHE LIKES TO DO THINGS FOR HERSELF. PATIENT WAS EDUCATED ON RISK FOR INJURY. VERBALIZED UNDERSTANDING. PATIENT ALSO REFUSES LIE IN BED EVEN IF SHE SITS ALL THE WAY UP. STATES SHE WILL ONLY SIT IN THE CHAIR. UNABLE TO APPLY BED ALARM. FALL BAND PLACED ON PATIENT.
[2018-11-09 05:00] VITALS: BP 121/97
[2018-11-09] MEDS: hydrALAZINE HCL 25 MG TAB PO SCH ×3 (06:10→22:44)
[2018-11-09] MEDS: INSULIN LISPRO (HUMAN) 100 UNITS/ML ML SC SCH ×3 (06:20→18:46)
[2018-11-09] MEDS: ACCU-CHEK COMFORT CURVE STRIP VI SCH ×4 (06:21→22:45)
--- NOTE | 2018-11-09 06:24 | NUR ---
BLOOD SUGAR MORNING LISPO HELD. NORMAL BLOOD SUGAR OF 80.
[2018-11-09 06:51] LABS: Potassium 5.1 mmol/L (3.5-5.1)
--- NOTE | 2018-11-09 07:07 | NUR ---
Closing Note Report given and care transferred to dayshift RN. Patient is resting in chair at bedside. No signs or symptoms of distress noted at this time
[2018-11-09 07:10] LABS: Albumin 2.4 g/dL (3.4-5.0); BUN/Creatinine Ratio 24.2; Bilirubin, Total 0.5 mg/dL (0.2-1.0); Calcium 8.2 mg/dL (8.5-10.1); Total Protein 5.9 g/dL (6.4-8.2)
--- NOTE | 2018-11-09 07:47 | NUR ---
Critical lab Critical BUN 88, paged MD Tamayo, awaiting call back
[2018-11-09 08:00] VITALS: BP 142/70
--- NOTE | 2018-11-09 08:11 | NUR ---
Spoke to Tractor Mechanic Helper regarding critical lab I spoke to MD Tamayo and notified of critical labs. Per MD he will come see the patient. No new orders received at this time. Will cont care. Pt sitting up in chair and refusing to have seizure precautions in place, pt refusing to get in bed at all. Will cont care call light within reach. Fall precs in place
--- NOTE | 2018-11-09 09:45 | NUR ---
Nephro at bedside MD Tamayo at bedside, new orders received. Will insert f/c as ordered and medicate as ordered. Cont care
--- NOTE | 2018-11-09 10:50 | NUR ---
Douglas catheter insertion Patient assessed and determined to be in need of douglas catheter as ordered. Patient educated on catheter and reason for insertion. All questions answered. Douglas catheter 16 guage Mongolian inserted with clean sterile technique. Patient tolerated well. 400 ml yellow urine removed at this time. Will cont i&o and cont care.
[2018-11-09] MEDS: PANTOPRAZOLE 40 MG TAB PO SCH (10:54)
[2018-11-09] MEDS: POTASSIUM CHL 20 Meq TABLET PO SCH (10:54)
[2018-11-09] MEDS: BUMETANIDE (0.25 MG/ML) INJ 10ML IV SCH ×2 (10:54→18:31)
[2018-11-09] MEDS: METOLAZONE 5 MG TAB PO SCH (10:55)
[2018-11-09] MEDS: METOPROLOL TARTRATE 50 MG TAB PO SCH ×2 (10:55→22:44)
[2018-11-09] MEDS: NIFEdipine ER 30 MG TAB PO SCH (10:56)
[2018-11-09] MEDS: FLUTICASONE PROP NASAL SPR 0.05 % (50MCG) 16GM EACHNOSTRI SCH ×2 (11:06→22:43)
[2018-11-09] MEDS: ERGOCALCIFEROL 50,000 UNIT(1.25MG) CAP PO SCH (11:06)
[2018-11-09] MEDS: ALPRAZolam 0.5 MG TAB PO PRN (11:07)
[2018-11-09] MEDS: CHOLECALCIFEROL (VITD3) 1,000 UNIT TAB PO SCH (11:48)
[2018-11-09 12:00] VITALS: BP 144/52
--- NOTE | 2018-11-09 12:31 | NUR ---
Hospitalist at bedside MD Hoang at bedside, aware of patients status. aware of pharmacy clarification for heparin, Per MD Hoang heparin order to start today. I spoke to Pharmacist Junnal and states he will verify order and order for today. Will cont care and medicate as ordered. Will cont care
--- NOTE | 2018-11-09 15:00 | NUR ---
Spoke to intranet support MD Maier aware of patients status. New orders received for 1200 ml fluid restriction for 24hr, pt made aware and verbalized understanding. No further orders at this time. Cont care
[2018-11-09 16:00] VITALS: BP 141/54
--- NOTE | 2018-11-09 16:10 | NUR ---
assessment Patient is a 63 year old female who is alert and oriented. Patients cognitive abilities are intact. Prior to admission patient lived home with family and functioned independently. Patient informed me she is able to care for her own ADLs. Per patient she will return home to her prior living arrangements post discharge and her Nnamdi will transport her home. Patient has a fww and 02 for home use. Patients pcp is Dr Wilkinson. Patients post discharge needs to be determined prior to discharge. I informed patient she has a right to speak to a social media developer regarding all care. I informed patient she has a right to participate in any and all discharge planning. Patient is aware of visiting hours on the hospital floor. I informed patient she has a right to privacy. Patient has a POA and advanced directive. Patient verbalized understanding and agreed to discharge plan. Addendum: 11/09/18 at 1612 by Parul REA Amended: Links added.
[2018-11-09] MEDS: traMADol HCL 50 MG TAB PO PRN (18:33)
--- NOTE | 2018-11-09 19:05 | NUR ---
Patient care endorsed endorsed care to Chayo garcia. Patient sitting up in chair, call light within reach family at bedside. No s/s of acute distress or sob.
[2018-11-09 22:00] VITALS: BP 143/59
[2018-11-09] MEDS ORDERED: HEPARIN SODIUM (PORCINE) 5000 UNITS/ML 1ML VIAL SC SCH (22:00)
[2018-11-09] MEDS: INSULIN LANTUS (GLARGINE) 1 /0.01ml (100units/ml) SC SCH (22:45)
[2018-11-09] MEDS: HEPARIN SODIUM (PORCINE) 5000 UNITS/ML 1ML VIAL SC SCH (23:09)
[2018-11-09] MEDS: TEMAZEPAM 15 MG CAP PO PRN (23:10)
--- NOTE | 2018-11-09 23:45 | NUR ---
Educated patient fall risk. The patient is wearing boots that are slippery when the patient transfers from the commode to the chair. The patient will not lay in the bed and will only sit in the chair. Educated the patient to remove the boots and put on the nonslip socks provided by the hospital and she refused. Will continue to monitor.
--- NOTE | 2018-11-10 00:57 | NUR ---
Educated the patient on fall risk The SENIOR FOREMAN, Tiffanie, was transferring the patient from commode to chair when her feet slipped. She is wearing boots that are not giving any traction. She was then educated on the need to use the hospital nonslip socks to help prevent a fall, but she refused to remove the boots. The patient also refuses to get into the bed to allow for the bed alarm which will help signal when the patient tries to get up without assistance. Patient says that she will not fall. Educated her again on the risk, but she refuses to comply with safety protocols. Will continue to monitor.
--- NOTE | 2018-11-10 02:04 | NUR ---
Re-educated patient on boots contributing to the risk for falls and moving from bed to chair. The patient refuses to remove boots and get into the bed to allow for bed alarm. Will continue to monitor.
[2018-11-10] MEDS: ALPRAZolam 0.5 MG TAB PO PRN ×2 (03:39→18:50)
[2018-11-10 05:00] VITALS: BP 151/58
[2018-11-10] MEDS: HEPARIN SODIUM (PORCINE) 5000 UNITS/ML 1ML VIAL SC SCH ×3 (06:23→20:05)
[2018-11-10] MEDS: BUMETANIDE (0.25 MG/ML) INJ 10ML IV SCH ×2 (06:24→18:51)
[2018-11-10] MEDS: hydrALAZINE HCL 25 MG TAB PO SCH ×3 (06:25→22:02)
[2018-11-10 06:30] LABS: Basophils # (auto) 0 uL; Basophils % (auto) 0.4 % (0.0-2.0); Eosinophils # (auto) 0.1 uL; Eosinophils % (auto) 1.8 % (0.0-7.0); Hematocrit 21.9 % (36.0-46.0); Hemoglobin 7.2 g/dL (12.2-16.2); Lymphocytes # (auto) 1.3 uL; Lymphocytes % (auto) 28.3 % (10.0-50.0); Mean Corpuscular Hemoglobin 32.8 pg (28.0-32.0); Mean Corpuscular Hgb Conc. 32.8 g/dL (32.0-36.0); Mean Corpuscular Volume 100.1 fL (80.0-100.0); Monocytes # (auto) 0.6 uL; Neutrophils # (auto) 2.5 uL; Neutrophils % (auto) 55.5 % (37.0-80.0); Platelet Count (auto) 198 10^3/uL (140-450); Red Blood Cells 2.19 10^6/uL (4.0-5.20); Red Cell Distribution Width 16.4 % (11.8-14.3); White Blood Cell 4.6 10^3/uL (4.4-10.8)
[2018-11-10 06:45] LABS: Albumin 2.4 g/dL (3.4-5.0); Calcium 8.1 mg/dL (8.5-10.1); Potassium 4.7 mmol/L (3.5-5.1)
[2018-11-10 06:50] LABS: BUN/Creatinine Ratio 25.8; Bilirubin, Total 0.3 mg/dL (0.2-1.0); Total Protein 5.9 g/dL (6.4-8.2)
[2018-11-10] MEDS: INSULIN LISPRO (HUMAN) 100 UNITS/ML ML SC SCH ×3 (06:56→16:57)
[2018-11-10] MEDS: ACCU-CHEK COMFORT CURVE STRIP VI SCH ×4 (06:56→22:04)
--- NOTE | 2018-11-10 06:58 | NUR ---
Critical BUN The patient has a critical BUN of 97, reported by chemistry. The patient is currently seeing Nephro. Will notify hospitalist and endorse to day shift.
--- NOTE | 2018-11-10 07:30 | NUR ---
Received patient sitting in chair, refused to wear hospital gown, Telemetry pack hanging. With bedside commode.
--- NOTE | 2018-11-10 07:48 | NUR ---
Patient called. Patient sitting on chair, I offered to assist, patient verbalized "Bye." Patient got up from chair, pulled the bedside commode next to her and. Explained to patient to press the call light if she needs help.
--- NOTE | 2018-11-10 08:05 | NUR ---
Patient called. Patient sitting on chair, asked me to clean the bedside commode. Small, soft, brownish/greenish solid stools noted. Cleaned the bedside commode. Patient asked to decrease the O2 via nasal cannula from 3 LPM to 2 LPM. Call light at bedside. Oconnell catheter draining clear, yellowish urine.
[2018-11-10 09:00] VITALS: BP 132/56
[2018-11-10] MEDS ORDERED: ENOXAPARIN SOD 30 MG/0.3 ML SYRINGE SC SCH (10:00)
[2018-11-10] MEDS: CHOLECALCIFEROL (VITD3) 1,000 UNIT TAB PO SCH (10:00)
[2018-11-10] MEDS: METOPROLOL TARTRATE 50 MG TAB PO SCH ×2 (10:00→22:02)
[2018-11-10] MEDS: NIFEdipine ER 30 MG TAB PO SCH (10:34)
[2018-11-10] MEDS: METOLAZONE 5 MG TAB PO SCH (10:34)
[2018-11-10] MEDS: PANTOPRAZOLE 40 MG TAB PO SCH (10:34)
[2018-11-10] MEDS: POTASSIUM CHL 20 Meq TABLET PO SCH (10:35)
[2018-11-10] MEDS: FLUTICASONE PROP NASAL SPR 0.05 % (50MCG) 16GM EACHNOSTRI SCH ×2 (10:38→22:03)
--- NOTE | 2018-11-10 10:45 | NUR ---
Patient asked for more apple sauce.
--- NOTE | 2018-11-10 10:55 | NUR ---
Dr. Hoang at bedside. explained to patient the possibility of hemodialysis. Patient started crying, complained about the hospital staff, asked if it's okay for her to stay. Explained to patient there's no available solo room at this time. Will follow up.
--- NOTE | 2018-11-10 12:40 | NUR ---
Telemetry pack on bed. Patient stated she will have it applied back after lunch.
--- NOTE | 2018-11-10 12:40 | NUR ---
Accu check = 65. Humalog SC not given. Two tetra pack of orange juice given to patient. at bedside.
--- NOTE | 2018-11-10 12:50 | NUR ---
Small soft, formed stools noted on the bedside commode. Cleaned the commode.
[2018-11-10 13:00] VITALS: BP 136/58
--- NOTE | 2018-11-10 16:59 | NUR ---
Accu check = 119 mg/dl.
--- NOTE | 2018-11-10 17:10 | NUR ---
Blood stain from patient's nares noted. Humidifier applied on the nasal cannula. O2 at 3 LPM. at bedside.
[2018-11-10 17:35] VITALS: BP 145/65
--- NOTE | 2018-11-10 17:55 | NUR ---
Patient's requested if patient can be on a recliner instead of the chair the patient is sitting at present and if patient can be transferred to a solo room. Explained to there's no recliner available at this time as per [employer] Products Fabricator. Transfer to a solo room not possible at this time. Charge Nurse made aware.
--- NOTE | 2018-11-10 18:05 | NUR ---
Humidifier on the nasal cannula removed as requested by the patient.
--- NOTE | 2018-11-10 18:30 | NUR ---
Assisted the patient to the bedside commode.
--- NOTE | 2018-11-10 18:50 | NUR ---
Patient is crying, anxiety noted. Xanax PO given for anxiety as ordered. at bedside.
[2018-11-10 22:00] VITALS: BP 158/76
[2018-11-10] MEDS: INSULIN LANTUS (GLARGINE) 1 /0.01ml (100units/ml) SC SCH (22:00)
[2018-11-10] MEDS: traMADol HCL 50 MG TAB PO PRN (22:01)
[2018-11-11 02:30] VITALS: BP 151/57
[2018-11-11 05:00] VITALS: BP 145/66
[2018-11-11] MEDS: hydrALAZINE HCL 25 MG TAB PO SCH ×3 (05:55→22:49)
[2018-11-11] MEDS: BUMETANIDE (0.25 MG/ML) INJ 10ML IV SCH ×2 (05:55→18:22)
[2018-11-11] MEDS: HEPARIN SODIUM (PORCINE) 5000 UNITS/ML 1ML VIAL SC SCH ×3 (05:56→22:20)
[2018-11-11] MEDS: INSULIN LISPRO (HUMAN) 100 UNITS/ML ML SC SCH ×3 (06:56→17:00)
[2018-11-11] MEDS: ACCU-CHEK COMFORT CURVE STRIP VI SCH ×4 (06:56→22:49)
[2018-11-11 07:28] LABS: Basophils # (auto) 0.1 uL; Eosinophils # (auto) 0.1 uL; Hematocrit 22.6 % (36.0-46.0); Monocytes # (auto) 0.5 uL; Platelet Count (auto) 205 10^3/uL (140-450); Red Blood Cells 2.21 10^6/uL (4.0-5.20); White Blood Cell 5.1 10^3/uL (4.4-10.8)
--- NOTE | 2018-11-11 07:30 | NUR ---
Opening Shift Note Assumed care of patient,sitting up in bed, awake and alert. Nasal canula at 3L, No S/S of distress/SOB or pain. Instructed on POC and to call for assist PRN, will continue to monitor for changes Q1hr and PRN.
[2018-11-11 07:31] LABS: Basophils % (auto) 1.1 % (0.0-2.0); Eosinophils % (auto) 2.8 % (0.0-7.0); Hemoglobin 7.5 g/dL (12.2-16.2); Lymphocytes # (auto) 1.5 uL; Lymphocytes % (auto) 29.9 % (10.0-50.0); Mean Corpuscular Hemoglobin 33.9 pg (28.0-32.0); Mean Corpuscular Hgb Conc. 33.2 g/dL (32.0-36.0); Monocytes % (auto) 10.4 % (0.0-12.0); Neutrophils # (auto) 2.9 uL; Neutrophils % (auto) 55.8 % (37.0-80.0); Nucleated Red Blood Cells % 0.2 %; Red Cell Distribution Width 16.6 % (11.8-14.3)
[2018-11-11 07:44] LABS: Alanine Aminotransferase 76 U/L (13-56); Albumin 2.4 g/dL (3.4-5.0); Anion Gap 12 (5-15); Aspartate Aminotransferase 23 U/L (15-37); BUN/Creatinine Ratio 25.4; Carbon Dioxide 17 mmol/L (21-32); Chloride 107 mmol/L (98-107); GFR African American 15 mL/min; GFR Non-African American 12 mL/min; Glucose 238 mg/dL (74-106); Sodium 136 mmol/L (136-145)
[2018-11-11 07:50] LABS: Alkaline Phosphatase 608 U/L (45-117); Bilirubin, Total 0.2 mg/dL (0.2-1.0); Total Protein 5.9 g/dL (6.4-8.2)
[2018-11-11 08:03] LABS: Blood Urea Nitrogen 99 mg/dL (7-18)
--- NOTE | 2018-11-11 08:03 | NUR ---
critical lab Bun 99 will notify
--- NOTE | 2018-11-11 09:33 | NUR ---
Patient c/o of Shortness of breath, patient screaming " i cant breath, help!, don't leave me." Patient on 3L NC, saturating at 96%, asked patient to calm down and to take a deep breath in through her nose and out through her mouth. Patient asked for anxiety medication, will medicate as prescribed. Will continue to monitor.
[2018-11-11] MEDS: FLUTICASONE PROP NASAL SPR 0.05 % (50MCG) 16GM EACHNOSTRI SCH ×2 (09:55→22:48)
[2018-11-11] MEDS: ALPRAZolam 0.5 MG TAB PO PRN ×2 (09:56→15:51)
[2018-11-11] MEDS: POTASSIUM CHL 20 Meq TABLET PO SCH (09:57)
[2018-11-11] MEDS: METOPROLOL TARTRATE 50 MG TAB PO SCH ×2 (09:57→22:00)
[2018-11-11] MEDS: METOLAZONE 5 MG TAB PO SCH (09:57)
[2018-11-11] MEDS: PANTOPRAZOLE 40 MG TAB PO SCH (09:57)
[2018-11-11] MEDS: NIFEdipine ER 30 MG TAB PO SCH (09:58)
--- NOTE | 2018-11-11 12:40 | NUR ---
Physical Therapist at bedside.
[2018-11-11] MEDS: CHOLECALCIFEROL (VITD3) 1,000 UNIT TAB PO SCH (15:11)
--- NOTE | 2018-11-11 18:44 | NUR ---
end of shift note : Patient comfortably sitting up in chair with nasal canula at 3L, no c/o of pain noted or stated. Family at bedside. Will endorse care to NOC RN.
[2018-11-11] MEDS: traMADol HCL 50 MG TAB PO PRN (19:55)
[2018-11-11 22:00] VITALS: BP 135/66
[2018-11-11] MEDS: INSULIN LANTUS (GLARGINE) 1 /0.01ml (100units/ml) SC SCH (22:49)
[2018-11-11] MEDS: TEMAZEPAM 15 MG CAP PO PRN (22:49)
[2018-11-12] MEDS: ALPRAZolam 0.5 MG TAB PO PRN ×4 (02:58→20:46)
[2018-11-12 05:00] VITALS: BP 155/67
[2018-11-12 06:12] LABS: Basophils # (auto) 0 uL; Hemoglobin 7.6 g/dL (12.2-16.2); Lymphocytes # (auto) 1.5 uL; Mean Corpuscular Hgb Conc. 33.6 g/dL (32.0-36.0); Monocytes # (auto) 0.6 uL; Neutrophils # (auto) 2.8 uL; Neutrophils % (auto) 55.1 % (37.0-80.0); Red Blood Cells 2.24 10^6/uL (4.0-5.20); White Blood Cell 5.1 10^3/uL (4.4-10.8)
[2018-11-12 06:14] LABS: Basophils % (auto) 0.6 % (0.0-2.0); Eosinophils # (auto) 0.2 uL; Eosinophils % (auto) 3.2 % (0.0-7.0); Hematocrit 22.6 % (36.0-46.0); Lymphocytes % (auto) 29.5 % (10.0-50.0); Mean Corpuscular Hemoglobin 33.9 pg (28.0-32.0); Mean Corpuscular Volume 100.8 fL (80.0-100.0); Monocytes % (auto) 11.6 % (0.0-12.0); Platelet Count (auto) 226 10^3/uL (140-450); Red Cell Distribution Width 16.4 % (11.8-14.3)
[2018-11-12 06:27] LABS: Albumin 2.5 g/dL (3.4-5.0); BUN/Creatinine Ratio 28.6; Calcium 8.2 mg/dL (8.5-10.1); Potassium 4.8 mmol/L (3.5-5.1)
[2018-11-12 06:35] LABS: Bilirubin, Total 0.2 mg/dL (0.2-1.0); Total Protein 6.1 g/dL (6.4-8.2)
[2018-11-12] MEDS: BUMETANIDE (0.25 MG/ML) INJ 10ML IV SCH ×2 (06:54→18:00)
[2018-11-12] MEDS: hydrALAZINE HCL 25 MG TAB PO SCH ×3 (06:54→21:52)
[2018-11-12] MEDS: ACCU-CHEK COMFORT CURVE STRIP VI SCH ×4 (06:54→21:52)
[2018-11-12] MEDS: HEPARIN SODIUM (PORCINE) 5000 UNITS/ML 1ML VIAL SC SCH ×3 (06:56→21:10)
[2018-11-12] MEDS: INSULIN LISPRO (HUMAN) 100 UNITS/ML ML SC SCH ×3 (06:59→17:00)
--- NOTE | 2018-11-12 07:00 | NUR ---
HOSPITALIST PAGED CRITICAL BUN 113
--- NOTE | 2018-11-12 07:00 | NUR ---
CRITICAL LAB CALL FROM LAB FOR CRITICAL BUN OF 113.
--- NOTE | 2018-11-12 07:15 | NUR ---
OPENING SHIFT NOTE RECEIVED REPORT FROM DAYSHIFT RN. PATIENT SITTING UPRIGHT IN CHAIR AT BEDSIDE AWAKE AND ALERT. NO S/S OF DISTRESS OR SOB, NO PAIN NOTED OR REPORTED. PT A/O X4, AMBULATORY SOB WITH EXERTION NOTED,BEDSIDE COMMODE NEXT TO PATIENT; ON 3L NC. UPDATED PT ON POC, VERBALIZED UNDERSTANDING. BED LOCKED IN LOW POSITION, CALL LIGHT WITHIN REACH. WILL CONTINUE TO MONITOR PT Q1HR AND PRN.
--- NOTE | 2018-11-12 07:16 | NUR ---
HOSPITALIST RETURNS CALL UPDATED HOSPITALIST ZA ON CRITICAL BUN OF 113, NO NEW ORDERS RECEIVED. PATIENT CURRENTLY BEING FOLLOWED BY AUTOMATIC BLOCKER DR. OBANDO.
[2018-11-12] MEDS: FLUTICASONE PROP NASAL SPR 0.05 % (50MCG) 16GM EACHNOSTRI SCH ×2 (08:59→21:51)
[2018-11-12] MEDS: CHOLECALCIFEROL (VITD3) 1,000 UNIT TAB PO SCH (09:01)
[2018-11-12] MEDS: PANTOPRAZOLE 40 MG TAB PO SCH (09:01)
[2018-11-12] MEDS: traMADol HCL 50 MG TAB PO PRN (09:01)
[2018-11-12] MEDS: POTASSIUM CHL 20 Meq TABLET PO SCH (09:01)
--- NOTE | 2018-11-12 09:30 | NUR ---
Small soft, formed stools noted on the bedside commode. Cleaned the commode.
--- NOTE | 2018-11-12 09:50 | NUR ---
DR OBANDO BEDSIDE PER MD PATIENT WILL HAVE A TUNNELED DIALYSIS CATHETER INSERTED TOMORROW 11/13/18; PATIENT IS AWARE OF POC.
[2018-11-12] MEDS: METOPROLOL TARTRATE 50 MG TAB PO SCH ×2 (10:00→21:51)
[2018-11-12] MEDS: NIFEdipine ER 30 MG TAB PO SCH (10:00)
[2018-11-12] MEDS: METOLAZONE 5 MG TAB PO SCH (10:00)
--- NOTE | 2018-11-12 12:51 | NUR ---
DR LA BEDSIDE
[2018-11-12 13:00] VITALS: BP 114/57
--- NOTE | 2018-11-12 13:00 | NUR ---
CONSENTS SIGNED FOR TUNNELED CATHETER CHRISTINA PROPOSAL REVIEW ANALYST BEDSIDE FOR PATIENT TO SIGN CONSENTS.
--- NOTE | 2018-11-12 13:00 | NUR ---
Accu check = 90 mg/dl
--- NOTE | 2018-11-12 14:31 | NUR ---
Physical Therapist at bedside.
--- NOTE | 2018-11-12 14:47 | NUR ---
Nutrition Follow-up Notes Wt.: 72.3 kg Pt's with PT by beside when rounded this am. per records pt to ha tunneled catheter for HD. pt with no distress noted. pt is currently on CCHO 60 gm/meal diet with adequate Po of 75% x6 per RN doc Est. Needs BW [id number] kcal (23-25 kcal/kgBW), 57-72 gms pro (0.8-1.0 gms/kgBW r/t elev RFT). Will continue to monitor pertinent labs and reassess nutrient need prn. will reassess as pt beings HD Labs: GLU 173 H, ALB 2.5 L, BUN 113 H, CREAT 3.95 H, CA 8.2 L. Skin: Bradford scale 19, low risk, skin intact per loan clerk. GI: Pt had 2 BM today per loan clerk. PES: Altered nutrition related lab values r/t current/chronic medical condition aeb elev RFT A1C, mod hypoalb, hypocalcemia, hyperglycemia Will continue to monitor PO intake, skin status, pertinent labs and weight trend. F/u in 3 to 5 days. Rec.: 1.) Continue close supervision during meals. 2.) Consider renal specific 60 gm protein 2 gm na along with current diet as elev RFT. 3) Refer pt to CDE/RD for further nutrition education and weight monitoring upon discharge. 4.) Continue current plan of care.
--- NOTE | 2018-11-12 17:16 | NUR ---
SECURITY PAGED BY SILK CONDITIONER A MALE FAMILY MEMBER REFUSED TO ALLOW THIS RN TO ACCESS PATIENTS BLOOD SUGAR; PATIENT IS A AND O X4 AND ABLE TO MAKE DECISIONS FOR HERSELF AND STATED TO HER MALE VISITOR "JUST STOP AND LEAVE ME ALONE I WANT TO KNOW MY BLOOD SUGAR" THE MALE VISITOR REFUSED TO LEAVE THE PATIENTS ROOM AND THE PATIENT BECAME MORE UPSET AND CRYING, RESPIRATIONS INCREASED.
--- NOTE | 2018-11-12 17:30 | NUR ---
RE: SECURITY SITUATION WITH MALE VISITOR RESOLVED AND DE-ESCALATED, NO ISSUES. PATIENT CALM AND RELAXED.
[2018-11-12 18:37] VITALS: BP 132/53
--- NOTE | 2018-11-12 19:27 | NUR ---
ENDORSED CARE TO NIGHT ELDA BRONSON.
[2018-11-12] MEDS: INSULIN LANTUS (GLARGINE) 1 /0.01ml (100units/ml) SC SCH (21:52)
[2018-11-12] MEDS: TEMAZEPAM 15 MG CAP PO PRN (21:53)
--- NOTE | 2018-11-13 | NUR ---
NPO AT MIDNIGHT PATIENT INSTRUCTED ON NOTHING BY MOUTH STATUS AFTER MIDNIGHT FOR PROCEDURE IN AM. PATIENT VERBALIZED UNDERSTANDING. FOOD AND DRINK REMOVED FROM BEDSIDE.
[2018-11-13] MEDS: traMADol HCL 50 MG TAB PO PRN ×2 (04:46→14:08)
[2018-11-13 06:04] VITALS: BP 148/57
[2018-11-13 06:14] LABS: Basophils # (auto) 0 uL; Basophils % (auto) 0.6 % (0.0-2.0); Hemoglobin 7.3 g/dL (12.2-16.2); Lymphocytes # (auto) 1.2 uL; Mean Corpuscular Volume 102.8 fL (80.0-100.0); Monocytes # (auto) 0.6 uL
[2018-11-13 06:17] LABS: Eosinophils # (auto) 0.2 uL; Eosinophils % (auto) 2.7 % (0.0-7.0); Hematocrit 22.6 % (36.0-46.0); Lymphocytes % (auto) 22.2 % (10.0-50.0); Mean Corpuscular Hemoglobin 33.1 pg (28.0-32.0); Mean Corpuscular Hgb Conc. 32.2 g/dL (32.0-36.0); Monocytes % (auto) 10.5 % (0.0-12.0); Neutrophils # (auto) 3.6 uL; Nucleated Red Blood Cells % 0.1 %; Platelet Count (auto) 205 10^3/uL (140-450); Red Cell Distribution Width 16.9 % (11.8-14.3); White Blood Cell 5.6 10^3/uL (4.4-10.8)
[2018-11-13] MEDS: INSULIN LISPRO (HUMAN) 100 UNITS/ML ML SC SCH ×3 (06:34→17:04)
[2018-11-13 06:40] LABS: Albumin 2.5 g/dL (3.4-5.0); Calcium 8.3 mg/dL (8.5-10.1); Potassium 5.3 mmol/L (3.5-5.1)
[2018-11-13 06:41] LABS: % Iron Saturation 15.3 % (15-50)
[2018-11-13 06:45] LABS: BUN/Creatinine Ratio 27.7; Bilirubin, Total 0.2 mg/dL (0.2-1.0); Total Protein 5.9 g/dL (6.4-8.2)
--- NOTE | 2018-11-13 06:50 | NUR ---
CRITICAL LAB CALL FROM LAB. CRITICAL BUN 112. TRENDING DOWN FROM 113. WILL ENDORSE TO DAY SHIFT RN. PATIENT TO HAVE DIALYSIS CATHETER PLACED TODAY AND DIALYSIS TO FOLLOW.
[2018-11-13] MEDS: ACCU-CHEK COMFORT CURVE STRIP VI SCH ×4 (06:55→22:00)
[2018-11-13] MEDS: BUMETANIDE (0.25 MG/ML) INJ 10ML IV SCH ×2 (06:55→17:35)
[2018-11-13] MEDS: HEPARIN SODIUM (PORCINE) 5000 UNITS/ML 1ML VIAL SC SCH ×3 (06:55→20:18)
[2018-11-13] MEDS ORDERED: EPOETIN ALFA 10,000 UNIT/1 ML VIAL SC ONE (07:00)
--- NOTE | 2018-11-13 07:20 | NUR ---
Opening Shift Note Assumed care of patient, awake and alert. No S/S of distress or pain. Per patient, she gets SOB when lying down so she only wanted to sit in the chair. Instructed on POC-will be having insertion of tunneled dialysis catheter, keep NPO for now. Patient informed to call for assist PRN, will continue to monitor for changes Q1hr and PRN.
[2018-11-13] MEDS ORDERED: SODIUM CHL 0.9% 1000 ML BAG XX ONE (07:30)
[2018-11-13] MEDS: hydrALAZINE HCL 25 MG TAB PO SCH ×4 (07:46→22:30)
--- NOTE | 2018-11-13 08:30 | NUR ---
Patient transported to laborer cement gun placing for insertion of tunneled dialysis catheter. Care endorsed to laborer cement gun placing RN.
[2018-11-13 09:00] VITALS: BP 128/56
[2018-11-13] MEDS ORDERED: LIDOCAINE 2%HCL (LOCAL ANESTH.) INJ 20ML MDV ONE (09:22)
[2018-11-13] MEDS ORDERED: fentaNYL CITRATE 100 MCG/2 ML VL ONE (09:34)
[2018-11-13] MEDS ORDERED: MIDAZOLAM HCL 1MG/1ML-2 ML VIAL ONE (09:34)
[2018-11-13] MEDS ORDERED: ceFAZolin 1GM/50ML 50 ML IV ONE (09:54)
[2018-11-13] MEDS: METOPROLOL TARTRATE 50 MG TAB PO SCH ×2 (10:00→22:30)
[2018-11-13] MEDS: NIFEdipine ER 30 MG TAB PO SCH (10:00)
[2018-11-13] MEDS ORDERED: HEPARIN SODIUM (PORCINE) 5000 UNITS/ML 1ML VIAL ONE ×2 (10:15→10:16)
--- NOTE | 2018-11-13 11:08 | NUR ---
Patient came back to the floor s/p insertion of tunneled dialysis catheter on the right upper chest. Patient is alert and oriented. Vital signs checked. Medication for BP held as patient is going to have dialysis today.
--- NOTE | 2018-11-13 11:10 | NUR ---
Called Pharmacy staff and requested to send Vit. D tablet for patient, there is none in [facility] medication room.
[2018-11-13] MEDS: METOLAZONE 5 MG TAB PO SCH (11:28)
[2018-11-13] MEDS: PANTOPRAZOLE 40 MG TAB PO SCH (11:28)
[2018-11-13] MEDS: POTASSIUM CHL 20 Meq TABLET PO SCH (11:29)
[2018-11-13] MEDS: FLUTICASONE PROP NASAL SPR 0.05 % (50MCG) 16GM EACHNOSTRI SCH ×2 (11:33→22:30)
[2018-11-13] MEDS: ALPRAZolam 0.5 MG TAB PO PRN ×2 (12:02→20:31)
[2018-11-13 13:00] VITALS: BP 158/67
[2018-11-13 14:35] LABS: Alanine Aminotransferase 68 U/L (13-56); Albumin 2.5 g/dL (3.4-5.0); Aspartate Aminotransferase 37 U/L (15-37); Bilirubin, Direct < 0.1 mg/dL (0-0.2)
[2018-11-13 14:37] LABS: Alkaline Phosphatase 604 U/L (45-117); Bilirubin, Total 0.2 mg/dL (0.2-1.0); Total Protein 6.2 g/dL (6.4-8.2)
--- NOTE | 2018-11-13 16:31 | NUR ---
FAXED LAST PROGRESS NOTE WRITTEN BY NEPHRO AND LABS AND MEDS FACE SHEET TO [facility]. STILL WAITING FOR HEP PANEL AND HD FLOW SHEETS
--- NOTE | 2018-11-13 16:40 | NUR ---
Hemodialysis ended, per HD RN, 3L off. Patient tolerated the procedure well.
[2018-11-13] MEDS: CHOLECALCIFEROL (VITD3) 1,000 UNIT TAB PO SCH (16:46)
[2018-11-13 16:53] VITALS: BP 177/83
--- NOTE | 2018-11-13 19:00 | NUR ---
Closing Note Patient is in bedside commode, having a bowel movement. Family at bedside. Call light within reach. Care endorsed to night RN.
--- NOTE | 2018-11-13 19:30 | NUR ---
Opening Shift Note Assumed care of patient, awake and alert. No S/S of distress/SOB. PT complained pain, will medicate per MD order. Instructed on POC and to call for assist PRN, will continue to monitor for changes Q1hr and PRN. Bed locked and in lowest position. Pt sitting on the Chair, at bedside. call light within reach.
[2018-11-13 22:00] VITALS: BP 186/71
[2018-11-13] MEDS: INSULIN LANTUS (GLARGINE) 1 /0.01ml (100units/ml) SC SCH (22:00)
[2018-11-14] MEDS: ACETAMINOPHEN 500 MG TAB PO PRN (00:34)
[2018-11-14] MEDS: PROMETHAZINE HCL 25 MG/ML 1ML IV PRN ×3 (00:36→22:37)
[2018-11-14] MEDS: hydrALAZINE HCL 20 MG/ML VL IV PRN (00:48)
[2018-11-14] MEDS: HEPARIN SODIUM (PORCINE) 5000 UNITS/ML 1ML VIAL SC SCH ×3 (04:29→20:00)
[2018-11-14 05:00] VITALS: BP 159/88
--- NOTE | 2018-11-14 05:15 | NUR ---
MIDLINE DRESSING CHANGE New tegaderm placed followed sterile procedure, placed mask on pt , pt tolerated procedure well will continue to monitor pt.
[2018-11-14] MEDS: hydrALAZINE HCL 25 MG TAB PO SCH ×3 (06:34→22:36)
[2018-11-14] MEDS: BUMETANIDE (0.25 MG/ML) INJ 10ML IV SCH ×2 (06:40→17:18)
[2018-11-14] MEDS: INSULIN LISPRO (HUMAN) 100 UNITS/ML ML SC SCH ×3 (06:40→17:00)
[2018-11-14] MEDS: ACCU-CHEK COMFORT CURVE STRIP VI SCH ×4 (06:40→22:00)
--- NOTE | 2018-11-14 07:00 | NUR ---
Opening Shift Note Assumed care of patient, awake and alert. No S/S of distress/SOB or pain. Insructed on POC and to callfor assist PRN, will continue to monitor for changes Q1hr and PRN.
[2018-11-14 09:00] VITALS: BP 128/61
[2018-11-14 09:04] LABS: Basophils # (auto) 0 uL; Basophils % (auto) 0.5 % (0.0-2.0); Eosinophils # (auto) 0.1 uL; Hematocrit 23.7 % (36.0-46.0); Hemoglobin 7.8 g/dL (12.2-16.2); Lymphocytes # (auto) 1.2 uL; Monocytes # (auto) 0.7 uL; Neutrophils # (auto) 2.9 uL; Nucleated Red Blood Cells % 0.1 %; Red Blood Cells 2.37 10^6/uL (4.0-5.20); White Blood Cell 4.9 10^3/uL (4.4-10.8)
[2018-11-14 09:06] LABS: Eosinophils % (auto) 2.3 % (0.0-7.0); Lymphocytes % (auto) 23.7 % (10.0-50.0); Mean Corpuscular Volume 100.1 fL (80.0-100.0); Neutrophils % (auto) 58.5 % (37.0-80.0); Platelet Count (auto) 202 10^3/uL (140-450); Red Cell Distribution Width 16.8 % (11.8-14.3)
[2018-11-14 09:34] LABS: Albumin 2.5 g/dL (3.4-5.0); Calcium 8.3 mg/dL (8.5-10.1)
[2018-11-14 09:37] LABS: BUN/Creatinine Ratio 24.8; Bilirubin, Total 0.2 mg/dL (0.2-1.0); Total Protein 6.1 g/dL (6.4-8.2)
[2018-11-14] MEDS: ALPRAZolam 0.5 MG TAB PO PRN (10:52)
[2018-11-14] MEDS: traMADol HCL 50 MG TAB PO PRN ×2 (10:53→18:23)
[2018-11-14] MEDS: CHOLECALCIFEROL (VITD3) 1,000 UNIT TAB PO SCH (10:54)
[2018-11-14] MEDS: METOPROLOL TARTRATE 50 MG TAB PO SCH ×2 (10:54→22:00)
[2018-11-14] MEDS: POTASSIUM CHL 20 Meq TABLET PO SCH (10:54)
[2018-11-14] MEDS: METOLAZONE 5 MG TAB PO SCH (10:55)
[2018-11-14] MEDS: NIFEdipine ER 30 MG TAB PO SCH (10:55)
[2018-11-14] MEDS: FLUTICASONE PROP NASAL SPR 0.05 % (50MCG) 16GM EACHNOSTRI SCH ×2 (10:56→22:36)
[2018-11-14] MEDS: PANTOPRAZOLE 40 MG TAB PO SCH (10:56)
[2018-11-14] MEDS ORDERED: NITROGLYCERIN 0.4 MG SL TAB SL PRN (12:45)
[2018-11-14] MEDS ORDERED: TEMAZEPAM 15 MG CAP PO PRN (12:45)
[2018-11-14] MEDS ORDERED: LORazepam 2MG/ML-1ML VIAL IV PRN (12:45)
[2018-11-14 13:00] VITALS: BP 168/56
[2018-11-14] MEDS ORDERED: CHOLECALCIFEROL (VITD3) 1,000 UNIT TAB PO ONE (13:00)
[2018-11-14] MEDS: HYDROmorphone HCL 2 MG/ML VL IV PRN ×2 (13:09→17:19)
--- NOTE | 2018-11-14 16:04 | NUR ---
FAXED CHAIR TIME PACKET TO [facility]. I DID NOT SEND HEP PANEL SINCE IT IS STILL PENDING. AWAIT CALL BACK FROM [facility]
[2018-11-14 17:00] VITALS: BP 118/44
--- NOTE | 2018-11-14 19:15 | NUR ---
Opening Shift Note Assumed care of patient, awake and alert. No S/S of distress/SOB. PT complained of nausea, unable to administer at this time as it is not due but will medicate per MD order when available. Reeducated pt the need to maintain her oxygen on, pt understood and put the oxygen back on. Instructed on POC and to call for assist PRN, will continue to monitor for changes Q1hr and PRN. Bed locked and in lowest position. Pt sitting on the Chair, call light within reach.
--- NOTE | 2018-11-14 20:00 | NUR ---
U/S TECH AT BEDSIDE
[2018-11-14 22:00] VITALS: BP 148/51
[2018-11-14] MEDS: INSULIN LANTUS (GLARGINE) 1 /0.01ml (100units/ml) SC SCH (22:00)
[2018-11-14 22:05] VITALS: BP 134/53
[2018-11-14] MEDS: CLOTRIMAZOLE 1 % CREAM 15GM TOP SCH (22:36)
[2018-11-15] MEDS: HEPARIN SODIUM (PORCINE) 5000 UNITS/ML 1ML VIAL SC SCH ×3 (03:38→20:21)
[2018-11-15 04:53] VITALS: BP 151/67
[2018-11-15] MEDS: BUMETANIDE (0.25 MG/ML) INJ 10ML IV SCH ×2 (05:56→17:50)
[2018-11-15] MEDS: hydrALAZINE HCL 25 MG TAB PO SCH ×3 (05:57→22:39)
[2018-11-15] MEDS: ACCU-CHEK COMFORT CURVE STRIP VI SCH ×4 (06:02→22:11)
[2018-11-15] MEDS: INSULIN LISPRO (HUMAN) 100 UNITS/ML ML SC SCH ×3 (06:18→17:52)
[2018-11-15 06:32] LABS: Basophils # (auto) 0 uL; Eosinophils # (auto) 0.1 uL; Hematocrit 23.5 % (36.0-46.0); Hemoglobin 7.7 g/dL (12.2-16.2); Mean Corpuscular Hgb Conc. 32.6 g/dL (32.0-36.0); Monocytes # (auto) 0.6 uL; Neutrophils # (auto) 2.9 uL; Nucleated Red Blood Cells % 0.1 %; Platelet Count (auto) 176 10^3/uL (140-450); Red Blood Cells 2.27 10^6/uL (4.0-5.20)
[2018-11-15 06:40] LABS: Basophils % (auto) 0.4 % (0.0-2.0); Eosinophils % (auto) 2.2 % (0.0-7.0); Lymphocytes # (auto) 1.2 uL; Lymphocytes % (auto) 25.2 % (10.0-50.0); Mean Corpuscular Hemoglobin 33.8 pg (28.0-32.0); Mean Corpuscular Volume 103.5 fL (80.0-100.0); Monocytes % (auto) 11.6 % (0.0-12.0); Neutrophils % (auto) 60.6 % (37.0-80.0); Red Cell Distribution Width 17.4 % (11.8-14.3); White Blood Cell 4.8 10^3/uL (4.4-10.8)
[2018-11-15 06:42] LABS: Albumin 2.6 g/dL (3.4-5.0); BUN/Creatinine Ratio 25.6; Calcium 8.5 mg/dL (8.5-10.1); Potassium 4.9 mmol/L (3.5-5.1)
[2018-11-15 06:45] LABS: Bilirubin, Total 0.2 mg/dL (0.2-1.0)
--- NOTE | 2018-11-15 06:56 | NUR ---
CRITICAL LAB VALUE compressor service technician Claudia BUN 86 will endorse, pt scheduled for dialysis for today
[2018-11-15] MEDS ORDERED: SODIUM CHL 0.9% 1000 ML BAG XX ONE (07:00)
[2018-11-15] MEDS ORDERED: EPOETIN ALFA 10,000 UNIT/1 ML VIAL SC ONE (07:00)
--- NOTE | 2018-11-15 07:02 | NUR ---
CLOSING NOTE PT resting no s/sx's of distress noted, pt on 2 l nc, HOB elevated. Addendum: 11/15/18 at 0753 by CAMERON MCCARTHY RN RN Informed day RN in regards to BUN level
[2018-11-15 07:12] LABS: % Iron Saturation 14.8 % (15-50)
--- NOTE | 2018-11-15 07:35 | NUR ---
PT REQUEST PT requested for soiled underwear to be thrown in the trash Informed day RN
--- NOTE | 2018-11-15 07:50 | NUR ---
OPENING SHIFT NOTE ASSUMED CARE OF PATIENT. PATIENT AWAKE AND ALERT SITTING UP IN BEDSIDE CHAIR. NO S/S OF DISTRESS OR SOB NOTED. REVIEWED POC WITH PATIENT AND INSTRUCTED TO CALL FOR ASSIST NEEDED. WILL CONTINUE TO MONITOR.
--- NOTE | 2018-11-15 08:20 | NUR ---
CHAIR TIME: STILL WAITING FOR HEP B PANEL BEFORE I CAN GET CHAIR TIME
[2018-11-15 09:00] VITALS: BP 145/70
[2018-11-15] MEDS: FLUTICASONE PROP NASAL SPR 0.05 % (50MCG) 16GM EACHNOSTRI SCH ×2 (10:00→22:41)
[2018-11-15] MEDS: METOPROLOL TARTRATE 50 MG TAB PO SCH ×2 (10:00→22:37)
[2018-11-15] MEDS: PANTOPRAZOLE 40 MG TAB PO SCH (10:00)
[2018-11-15] MEDS: CLOTRIMAZOLE 1 % CREAM 15GM TOP SCH (10:00)
[2018-11-15] MEDS: CHOLECALCIFEROL (VITD3) 1,000 UNIT TAB PO SCH (10:00)
[2018-11-15] MEDS: METOLAZONE 5 MG TAB PO SCH (10:00)
[2018-11-15] MEDS: NIFEdipine ER 30 MG TAB PO SCH (10:00)
[2018-11-15] MEDS: POTASSIUM CHL 20 Meq TABLET PO SCH (10:00)
--- NOTE | 2018-11-15 10:40 | NUR ---
AT BEDSIDE DR LA AT BEDSIDE AT THIS TIME. AWAITING DIALYSIS TODAY. NO NEW ORDERS RECEIVED. CONTINUING TO MONITOR.
--- NOTE | 2018-11-15 11:34 | NUR ---
SPOKE TO TRUCK GREASER IN LAB, SHE STATED HEP B PANELS RUN ON AND . SHE STATED SHE WOULD SEE THAT THIS PT'S HEP PANEL WILL BE DONE FIRST.
[2018-11-15 11:54] LABS: Hepatitis A Ab IgM Negative; Hepatitis B Core IgM Negative; Hepatitis B Surface Antigen Negative (Negative); Hepatitis C Antibody Negative (Negative)
[2018-11-15 13:00] VITALS: BP 184/68
--- NOTE | 2018-11-15 13:09 | NUR ---
faxed hep b panel to [facility]
--- NOTE | 2018-11-15 13:18 | NUR ---
CHAIR TIME: SPOKE TO BHASKAR AND SHE WILL HAVE TO REVIEW HD PACKET I SENT THEM AND CALL ME BACK WITH A CHAIR TIME.
[2018-11-15] MEDS: PROMETHAZINE HCL 25 MG/ML 1ML IV PRN (13:35)
[2018-11-15 17:00] VITALS: BP 163/65
--- NOTE | 2018-11-15 17:28 | NUR ---
PT IS AT CGA LEVEL WITH ACTIVITIES. PT WILL BE DISCHARGED FROM P.T. NURSING TO ASSIST PT NEEDED.
--- NOTE | 2018-11-15 19:44 | NUR ---
END OF SHIFT NOTE PATIENT AWAKE AND ALERT SITTING UP IN BEDSIDE CHAIR. NO S/S OF DISTRESS OR SOB NOTED. SPOUSE AT BEDSIDE AT THIS TIME. CARE ENDORSED TO NOC RN.
--- NOTE | 2018-11-15 20:00 | NUR ---
OPENING NOTE ASSUMED CARE OF PATIENT. PATIENT IS SITTING UP IN CHAIR [id number]. AT BEDSIDE, NO S/S OF DISTRESS. CALL LIGHT IN REACH.
--- NOTE | 2018-11-15 20:15 | NUR ---
OPENING NOTES [facility] PATIENT IS AWAKE AND ALERT X4. PATIENT REFUSED TO HAVE A MALE RN AT THIS TIME. ENDORSED CARE TO KATIE SCHROEDER.
[2018-11-15 21:00] VITALS: BP 157/67
[2018-11-15] MEDS: INSULIN LANTUS (GLARGINE) 1 /0.01ml (100units/ml) SC SCH (22:42)
[2018-11-16] MEDS: CLOTRIMAZOLE 1 % CREAM 15GM TOP SCH ×3 (00:22→22:17)
[2018-11-16] MEDS: HEPARIN SODIUM (PORCINE) 5000 UNITS/ML 1ML VIAL SC SCH (04:15)
[2018-11-16 05:03] VITALS: BP 156/80
[2018-11-16] MEDS: PROMETHAZINE HCL 25 MG/ML 1ML IV PRN ×2 (05:05→10:20)
[2018-11-16] MEDS: hydrALAZINE HCL 25 MG TAB PO SCH ×3 (06:53→21:35)
[2018-11-16] MEDS: ACCU-CHEK COMFORT CURVE STRIP VI SCH ×4 (06:54→21:38)
[2018-11-16] MEDS: BUMETANIDE (0.25 MG/ML) INJ 10ML IV SCH ×2 (06:54→19:23)
[2018-11-16] MEDS: INSULIN LISPRO (HUMAN) 100 UNITS/ML ML SC SCH ×3 (06:54→17:00)
[2018-11-16 07:02] LABS: Basophils # (auto) 0 uL; Hematocrit 22.5 % (36.0-46.0); Lymphocytes # (auto) 1.2 uL; Monocytes # (auto) 0.9 uL; Platelet Count (auto) 180 10^3/uL (140-450)
[2018-11-16 07:03] LABS: Basophils % (auto) 0.4 % (0.0-2.0); Eosinophils # (auto) 0.1 uL; Hemoglobin 7.5 g/dL (12.2-16.2); Lymphocytes % (auto) 20.9 % (10.0-50.0); Mean Corpuscular Hemoglobin 33.4 pg (28.0-32.0); Mean Corpuscular Hgb Conc. 33.5 g/dL (32.0-36.0); Mean Corpuscular Volume 99.5 fL (80.0-100.0); Monocytes % (auto) 16.5 % (0.0-12.0); Neutrophils # (auto) 3.4 uL; Neutrophils % (auto) 61.2 % (37.0-80.0); Red Blood Cells 2.26 10^6/uL (4.0-5.20); Red Cell Distribution Width 16.8 % (11.8-14.3); White Blood Cell 5.5 10^3/uL (4.4-10.8)
[2018-11-16 07:19] LABS: Calcium 8.2 mg/dL (8.5-10.1); Potassium 3.9 mmol/L (3.5-5.1)
[2018-11-16 07:25] LABS: Albumin 2.5 g/dL (3.4-5.0); BUN/Creatinine Ratio 19.3; Bilirubin, Total 0.3 mg/dL (0.2-1.0); Total Protein 6.1 g/dL (6.4-8.2)
--- NOTE | 2018-11-16 08:12 | NUR ---
chair time: jonathan domínguez and had to leave message for confirmation of chair time
[2018-11-16 09:00] VITALS: BP 150/63
[2018-11-16] MEDS: FLUTICASONE PROP NASAL SPR 0.05 % (50MCG) 16GM EACHNOSTRI SCH ×2 (10:16→21:32)
[2018-11-16] MEDS: POTASSIUM CHL 20 Meq TABLET PO SCH (10:17)
[2018-11-16] MEDS: CHOLECALCIFEROL (VITD3) 1,000 UNIT TAB PO SCH (10:18)
[2018-11-16] MEDS: PANTOPRAZOLE 40 MG TAB PO SCH (10:18)
[2018-11-16] MEDS: METOPROLOL TARTRATE 50 MG TAB PO SCH ×2 (10:18→21:35)
[2018-11-16] MEDS: METOLAZONE 5 MG TAB PO SCH (10:19)
[2018-11-16] MEDS: NIFEdipine ER 30 MG TAB PO SCH (10:20)
[2018-11-16] MEDS: ERGOCALCIFEROL 50,000 UNIT(1.25MG) CAP PO SCH (10:20)
--- NOTE | 2018-11-16 11:14 | NUR ---
CHAIR TIME: OF TODAY PT HAS NO INSURANCE, NATALIE SS INFORMED TO SEE PT
--- NOTE | 2018-11-16 12:08 | NUR ---
LOW BLOOD SUGAR PATIENT BLOOD SUGAR 56 AT THIS TIME. WILL FOLLOW PROTOCOL AND CONTINUING TO MONITOR. Addendum: 11/16/18 at 1949 by MIRTA AVERY RN PATIENT PRIOR TO CHECKING BLOOD SUGAR STATED "MY SUGAR IS HIGH OR LOW, I SEE WHITE CLOUDS" NO OTHER DISTRESS/SOB OR COMPLAINTS AT THIS TIME. PROTOCOL FOLLOWED.
--- NOTE | 2018-11-16 12:19 | NUR ---
LOW BLOOD SUGAR RECHECKED BLOOD SUGAR AT THIS TIME, 51. PATIENT HAS HAD 2 ORANGE JUICES AT THIS TIME. WILL CONTINUE TO FOLLOW PROTOCOL AND CONTINUE TO MONITOR.
--- NOTE | 2018-11-16 12:43 | NUR ---
BLOOD SUGAR AFTER X3 ORANGE JUICE PATIENT STATES "I CAN SEE YOU NOW, YOU DONT HAVE WHITE CLOUDS" BLOOD SUGAR 92 AT THIS TIME. S/S OF DISTRESS. CONTINUING TO MONITOR.
--- NOTE | 2018-11-16 12:45 | NUR ---
Nutrition Follow-up Notes Wt.: 72.3 kg Pt's sleeping with no family by beside when rounded this am. per records pt is now on HD and to have HD today. pt is currently on CCHO 60 gm/meal diet with adequate PO of 75% x 2 days per RN doc Est. Needs BW [id number] kcal (23-25 kcal/kgBW), 86-100 gms pro (1.2-1.4 gms/kgBW r/t HD). Will continue to monitor pertinent labs and reassess nutrient need prn. reassessed as pt now on HD Labs: BUN 53 H, CREAT 2.74 H, GLU 199 H, CA 8.2 L, ALB 2.5 L. Skin: Bradford scale 20, low risk, skin intact per master motorcycle technician. GI: Pt had 2 BM today per master motorcycle technician. PES: Altered nutrition related lab values r/t current/chronic medical condition aeb elev RFT A1C, mod hypoalb, hypocalcemia, hyperglycemia Will continue to monitor PO intake, skin status, pertinent labs and weight trend. F/u in 3 to 5 days. Rec.: 1.) Continue close supervision during meals. 2.) Consider renal std diet as pt on HD along with current diet. 3) Refer pt to CDE/RD for further nutrition education and weight monitoring upon discharge. 4.) Continue current plan of care.
[2018-11-16 13:00] VITALS: BP 146/61
--- NOTE | 2018-11-16 13:30 | NUR ---
PHARMACY SPOKE WITH PHARMACY REGARDING HEPARIN. SPOKE WITH WESLEY. CHANGED HEPARIN TO [id number] IN 10ML, THUS REQUIRING TO ADMINISTER 5ML SUBCUTANEOUSLY. INFORMED COMMUNITY AFFAIRS DIRECTOR AT THIS TIME. MED HELD. CONTINUING TO MONITOR.
[2018-11-16] MEDS: ALPRAZolam 0.5 MG TAB PO PRN ×2 (13:52→20:31)
--- NOTE | 2018-11-16 15:23 | NUR ---
CHAIR TIME; pt will be here for over the weekend since she could not renew her medicare due to hospitalization. Cj working with pt to complete medical packet. Medical office closed today and will open Monday
[2018-11-16 17:37] VITALS: BP 122/61
--- NOTE | 2018-11-16 19:00 | NUR ---
OPENING NOTE ASSUMED CARE OF PATIENT. PATIENT IS REALLY ANXIOUS, SHE STATES THAT SHE IS HAVING SOB. IS AT BEDSIDE. NO REPORTS OF PAIN. I HELPED HER AMBULATE TO CHAIR, CALL LIGHT IS IN REACH.
--- NOTE | 2018-11-16 19:41 | NUR ---
END OF SHIFT NOTE PATIENT AWAKE AND ALERT SITTING UP IN BEDSIDE CHAIR. NO S/S OF DISTRESS OR SOB NOTED. CALL LIGHT WITHIN REACH. CARE ENDORSED TO NOC RN.
[2018-11-16 22:00] VITALS: BP 162/69
[2018-11-16] MEDS: INSULIN LANTUS (GLARGINE) 1 /0.01ml (100units/ml) SC SCH (22:16)
--- NOTE | 2018-11-17 03:50 | NUR ---
LOW BLOOD GLUCOSE PATIENTS BLOOD SUGAR DROPPED TO 36 mg/dl, IT WAS RECHECKED AT 35 mg/dl. SHE WAS TREATED W/ DEXTROSE 50 ML SYRG. ALSO GIVEN ORANGE JUICE. BLOOD SUGAR WAS RECHECKED 138 mg/dl AFTER ADMINISTERING DEXTROSE 50 ML. PRECISION LENS GRINDER APPRENTICE ROWENA WAS NOTIFIED.
[2018-11-17 05:44] VITALS: BP 145/60
[2018-11-17] MEDS: hydrALAZINE HCL 25 MG TAB PO SCH ×2 (06:00→16:24)
[2018-11-17] MEDS: BUMETANIDE (0.25 MG/ML) INJ 10ML IV SCH (06:00)
[2018-11-17 06:08] LABS: Hematocrit 23.2 % (36.0-46.0); Hemoglobin 7.5 g/dL (12.2-16.2); Mean Corpuscular Hgb Conc. 32.6 g/dL (32.0-36.0); Mean Corpuscular Volume 101.2 fL (80.0-100.0); Platelet Count (auto) 172 10^3/uL (140-450); Red Blood Cells 2.29 10^6/uL (4.0-5.20); Red Cell Distribution Width 16.9 % (11.8-14.3)
[2018-11-17 06:10] LABS: Band Neutrophils % (manual) 0; Basophils % (manual) 0 (0.0-2.0); Blast Cells 0; Metamyelocytes % 0; Myelocytes % 0; Promyelocytes % 0; Reactive Lymphocytes 0
[2018-11-17 06:12] LABS: Albumin 2.6 g/dL (3.4-5.0); BUN/Creatinine Ratio 17.4; Calcium 8.2 mg/dL (8.5-10.1)
[2018-11-17 06:15] LABS: Bilirubin, Total 0.3 mg/dL (0.2-1.0); Total Protein 6.1 g/dL (6.4-8.2)
[2018-11-17] MEDS: ALPRAZolam 0.5 MG TAB PO PRN ×3 (06:58→22:44)
[2018-11-17] MEDS: INSULIN LISPRO (HUMAN) 100 UNITS/ML ML SC SCH ×3 (07:00→17:43)
[2018-11-17] MEDS: ACCU-CHEK COMFORT CURVE STRIP VI SCH ×4 (07:02→21:48)
[2018-11-17 07:11] LABS: Eosinophils % (manual) 1 (0-7); Lymphocytes % (manual) 13 (10.0-50.0); Monocytes % (manual) 17 (0-12)
--- NOTE | 2018-11-17 07:30 | NUR ---
Report received. Patient is sitting up in chair. Patient is alert and oriented. Patient is SOB on exertion, O2 in place. Dialysis catheter noted right upper chest. recreation facility manager in place. Some anxiety noted. No S/S acute distress. Call light in reach. Will continue to monitor.
[2018-11-17 08:00] VITALS: BP 152/73
[2018-11-17] MEDS: ACETAMINOPHEN 500 MG TAB PO PRN ×3 (09:45→21:21)
[2018-11-17] MEDS: CLOTRIMAZOLE 1 % CREAM 15GM TOP SCH ×2 (10:30→21:48)
[2018-11-17] MEDS: CHOLECALCIFEROL (VITD3) 1,000 UNIT TAB PO SCH (10:47)
[2018-11-17] MEDS: PANTOPRAZOLE 40 MG TAB PO SCH (10:47)
[2018-11-17] MEDS: METOLAZONE 5 MG TAB PO SCH (10:47)
[2018-11-17] MEDS: NIFEdipine ER 30 MG TAB PO SCH (10:48)
[2018-11-17] MEDS: METOPROLOL TARTRATE 50 MG TAB PO SCH ×2 (10:48→21:22)
[2018-11-17] MEDS: POTASSIUM CHL 20 Meq TABLET PO SCH (10:49)
[2018-11-17] MEDS: FLUTICASONE PROP NASAL SPR 0.05 % (50MCG) 16GM EACHNOSTRI SCH ×2 (10:50→21:22)
--- NOTE | 2018-11-17 11:30 | NUR ---
Blood sugar 126. Patient states no Humalog insulin at this time.
--- NOTE | 2018-11-17 11:52 | NUR ---
Patient states she was OOB to put her phone on the bedside table. Patient states she was going back to her bed and she fell. Patient states she landed on her bottom and did not hit her head. Patient was assisted back to the chair by another staff member. Dr. Perkins informed.
[2018-11-17 12:30] VITALS: BP 150/68
--- NOTE | 2018-11-17 13:26 | NUR ---
Dr. Perkins in to see patient as hospitalist.
--- NOTE | 2018-11-17 16:22 | NUR ---
Dr. Barr in to see patient for nephrology follow up.
--- NOTE | 2018-11-17 16:55 | NUR ---
Temp 100.8. Tylenol 500 mg PO given. Will continue to monitor.
[2018-11-17 17:00] VITALS: BP 137/85
[2018-11-17] MEDS ORDERED: BUMETANIDE (0.25 MG/ML) INJ 10ML IV ONE ×2 (17:00→21:30)
--- NOTE | 2018-11-17 17:00 | NUR ---
Patient informed that she will be started on a Bumex drip and we need to keep strict I&Os. Informed the patient that she must use the commode so we can keep track of her output. Patient stated understanding. Will continue to monitor.
--- NOTE | 2018-11-17 17:12 | NUR ---
Heparin 5000 units/1 ml not available. Patient states she has been given Lovenox and is not allergic to it. Page placed to Dr. Perkins.
[2018-11-17] MEDS ORDERED: HEPARIN SODIUM (PORCINE) 5000 UNITS/ML 1ML VIAL SC SCH (17:15)
--- NOTE | 2018-11-17 17:27 | NUR ---
Return call from Dr. Perkins. Order received for Lovenox per pharmacist recommendation. Pharmacist states 30 units SQ daily. Order entered.
--- NOTE | 2018-11-17 21:20 | NUR ---
MIDLINE LEAKING Flushed midline with 10ml of normal saline and noticed midline is leaking. Patient stated that the midline hurts when flushed with normal saline. Informed Diamante, Charge Nurse, of the situation, and Diamante changed the dressing and assessed the site. Was advised to not use the midline, start a peripheral IV, and inform/consult the PICC line nurse in the morning.
--- NOTE | 2018-11-17 21:35 | NUR ---
IV INSERTION IV access obtained, via clean sterile technique by inserting 22 gauge catheter at left hand after 1 attempt. IV secured properly. IV flushes well with no resistance, patient denies irritation/burning/pain at the IV site. No trauma to site noted. Patient tolerated well.
[2018-11-17] MEDS: BUMETANIDE INJECTION 25 MG in GIVE UN-DILUTED 0 ML IV SCH (21:47)
[2018-11-17] MEDS: traMADol HCL 50 MG TAB PO PRN (21:48)
[2018-11-17] MEDS: INSULIN LANTUS (GLARGINE) 1 /0.01ml (100units/ml) SC SCH (21:48)
[2018-11-17 22:00] VITALS: BP_SYST 114; BP_SYST 115; BP_DIAS 55; BP_DIAS 84
--- NOTE | 2018-11-17 22:20 | NUR ---
PATIENT REFUSING TO LAY IN BED Patient is refusing to lay in bed. Patient states that she has been sleeping in the chair because it helps her breath better. Educated patient about fall precautions and patient continues to refuse to lay in bed to sleep. Educated patient to call if she needs to use the bedside commode or as needed. Patient verbalized understanding. Call light is within reach.
--- NOTE | 2018-11-18 01:53 | NUR ---
Opening Shift Note Assumed care of patient, awake and alert x4, sitting on the chair. No S/S of distress/SOB or pain noted. Instructed on POC and to call for assistance as needed. Bed is locked in lowest position, side rails x 2 are up, and call light is within reach. Addendum: 11/18/18 at 0307 by DANIELLE FORREST RN RN CORRECT DATE: 11/17/18 CORRECT TIME: 1934
--- NOTE | 2018-11-18 02:04 | NUR ---
HOSPITALIST PAGED RE: SHORTNESS OF BREATH Hospitalist paged regarding shortness of breath. Awaiting call back.
--- NOTE | 2018-11-18 02:06 | NUR ---
HOSPITALIST CALLED BACK RE: SHORTNESS OF BREATH Hospitalist RAILROAD CAR TRUCK BUILDER Domitila Thomas returned call, informed JUDI Thomas patient is complaining of shortness of breath and crackles were heard upon auscultation. Orders for breathing treatments every 4 hours as needed received. Read back and verified orders. Will implement orders as received.
[2018-11-18 02:27] VITALS: BP 115/84
[2018-11-18] MEDS: ALBUTEROL SULF 2.5 MG/0.5ML(0.5%) NEB SOLN NEB PRN ×2 (02:50→10:09)
[2018-11-18] MEDS: IPRATROPIUM BROM 0.5 MG/2.5ML INH SOL NEB PRN ×2 (02:50→10:09)
--- NOTE | 2018-11-18 03:03 | NUR ---
POST BREATHING TREATMENT Patient is sitting in the chair with nasal cannula 3 liters, sating at 96%. Patient states the breathing treatment "helped a little." Patient is still refusing to lay in bed. Told patient to call me if she decides to get in bed, needs to use the bedside commode, or as needed. Patient verbalized understanding. Call light is within reach.
--- NOTE | 2018-11-18 04:30 | NUR ---
LOW BLOOD SUGAR Patient called stating that she felt weird and requested to have her blood sugar checked. Blood sugar was checked and was found to be 51. Two orange juices and a pack of carlene cracker was given to the patient, patient tolerated well. At 0412 patients blood sugar was rechecked and was found to be 61. Patient stated she was feeling better. Blood sugar was rechecked at 0425 and was found to be 84. Patient stated she was feeling "a lot better" and was going to go back to sleep. Patient is sitting on the chair with symmetrical chest rise and fall. No s/s of SOB/distress or pain noted. Call light is within reach. Instructed patient to call for assistance as needed.
[2018-11-18] MEDS: ACETAMINOPHEN 500 MG TAB PO PRN ×2 (06:03→14:41)
[2018-11-18] MEDS: hydrALAZINE HCL 20 MG/ML VL IV PRN (06:04)
[2018-11-18] MEDS: INSULIN LISPRO (HUMAN) 100 UNITS/ML ML SC SCH ×3 (06:07→17:00)
[2018-11-18] MEDS: ACCU-CHEK COMFORT CURVE STRIP VI SCH ×4 (06:08→22:34)
[2018-11-18 06:25] LABS: Basophils # (auto) 0 uL; Basophils % (auto) 0.3 % (0.0-2.0); Eosinophils # (auto) 0 uL; Hemoglobin 7.6 g/dL (12.2-16.2); Monocytes # (auto) 0.7 uL; Nucleated Red Blood Cells % 0.1 %; Platelet Count (auto) 174 10^3/uL (140-450)
[2018-11-18 06:28] LABS: Eosinophils % (auto) 0.9 % (0.0-7.0); Lymphocytes % (auto) 19.1 % (10.0-50.0); Mean Corpuscular Hgb Conc. 33.1 g/dL (32.0-36.0); Monocytes % (auto) 13.1 % (0.0-12.0); Neutrophils # (auto) 3.5 uL; Neutrophils % (auto) 66.6 % (37.0-80.0); Red Cell Distribution Width 16.5 % (11.8-14.3); White Blood Cell 5.2 10^3/uL (4.4-10.8)
[2018-11-18 06:49] LABS: Potassium 4.4 mmol/L (3.5-5.1)
[2018-11-18 06:59] LABS: Albumin 2.6 g/dL (3.4-5.0); BUN/Creatinine Ratio 16.8; Bilirubin, Total 0.3 mg/dL (0.2-1.0); Total Protein 6.3 g/dL (6.4-8.2)
[2018-11-18] MEDS: ALPRAZolam 0.5 MG TAB PO PRN (08:05)
--- NOTE | 2018-11-18 09:06 | NUR ---
Patient had stated that she needed to use the BSC. Patient assisted to commode with max assist and was given call light and instructed to call to get back to chair. Patient stated understanding. Patient called to say she was done. When staff went to room patient had transferred to chair by herself. Patient was very SOB. O2 in place. Patient was instructed to call for assist when she needs help. Call light in reach. Will continue to monitor.
[2018-11-18 09:13] VITALS: BP 146/73
[2018-11-18] MEDS: POTASSIUM CHL 20 Meq TABLET PO SCH (09:49)
[2018-11-18] MEDS: ENOXAPARIN SOD 30 MG/0.3 ML SYRINGE SC SCH (09:49)
[2018-11-18] MEDS: PANTOPRAZOLE 40 MG TAB PO SCH (09:49)
[2018-11-18] MEDS: NIFEdipine ER 30 MG TAB PO SCH (09:50)
[2018-11-18] MEDS: METOPROLOL TARTRATE 50 MG TAB PO SCH ×2 (09:51→22:33)
[2018-11-18] MEDS: CHOLECALCIFEROL (VITD3) 1,000 UNIT TAB PO SCH (09:52)
[2018-11-18] MEDS: METOLAZONE 5 MG TAB PO SCH (09:52)
[2018-11-18] MEDS: CLOTRIMAZOLE 1 % CREAM 15GM TOP SCH ×2 (10:00→22:00)
[2018-11-18] MEDS: FLUTICASONE PROP NASAL SPR 0.05 % (50MCG) 16GM EACHNOSTRI SCH ×2 (10:00→22:00)
--- NOTE | 2018-11-18 10:15 | NUR ---
Respiratory note: PATIENT CALLED FOR PRN BREATHING TREATMENT. PATIENT COMPLAINS OF SOB AND HAS WET CRACKLES UPON AUSCULTATION. MED-NEB ADMINISTERED AT THIS TIME.
--- NOTE | 2018-11-18 10:54 | NUR ---
Dr. Perkins in to see patient as hospitalist.
[2018-11-18] MEDS ORDERED: EPOETIN ALFA 10,000 UNIT/1 ML VIAL IV ONE (11:00)
--- NOTE | 2018-11-18 11:30 | NUR ---
Patient up to BSC frequently this shift. Patient reminded that she needs to call for assist to get up to BSC and then back to chair. Will continue to monitor.
[2018-11-18 13:02] VITALS: BP 165/82
--- NOTE | 2018-11-18 14:15 | NUR ---
Patient was assisted to BSC. Call light was placed in reach and patient was informed that she needs to call when finished. Patient rounds were done and patient was found standing next to BSC. Patient assisted to chair and was helped to put on clean clothes. Patient was reminded to use call light.
[2018-11-18] MEDS: cloNIDine HCL 0.1 MG TAB PO PRN (14:41)
[2018-11-18 17:35] VITALS: BP 137/77
--- NOTE | 2018-11-18 18:03 | NUR ---
Patient had dialysis this shift fro fluid removal only.
[2018-11-18] MEDS: BUMETANIDE INJECTION 25 MG in GIVE UN-DILUTED 0 ML IV SCH (18:11)
--- NOTE | 2018-11-18 19:12 | NUR ---
Facilities Flight Check Pilot [employer] Facilities Flight Check Pilot [employer] to clarify orders for the Bumex Drip. Awaiting call back.
--- NOTE | 2018-11-18 19:40 | NUR ---
Opening Shift Note Assumed care of patient, awake and alert x4. Patient is sitting in the chair and refusing to lay in bed at this time. No S/S of distress/SOB noted. Patient is on 3L nasal cannula. Patient is complaining of pain on her lower extremities (pain scale 8/10), will medicate patient as ordered. Instructed on plan of care and to call for assistance as needed.
--- NOTE | 2018-11-18 20:03 | NUR ---
BUILDING CONSTRUCTION ENGINEER KATHRIN RETURNED CALL RE: MEDICATION CLARIFICATION Cafe Assistant Kathrin returned call, asked for clarification on the Bumex drip. Received orders from Kathrin to go discontinue Bumex drip. Orders read back and verified. Will implement orders as received.
[2018-11-18] MEDS: traMADol HCL 50 MG TAB PO PRN ×2 (20:11→20:39)
--- NOTE | 2018-11-18 20:13 | NUR ---
RT NOTE: PT ASSESSED BY RT @ THIS TIME. NO PRN TX INDICATED. SPO2 97% ON 3L NC, HR 66, RR 22, DIMINISHED BS. NO SOB OR DISTRESS NOTED. RN @ BEDSIDE.
--- NOTE | 2018-11-18 20:30 | NUR ---
IV REMOVAL IV to the left hand DC'd with clean sterile technique, catheter fully intact. Pressure dressing applied to site. Patient tolerated well.
--- NOTE | 2018-11-18 20:35 | NUR ---
BLEEDING AT DIALYSIS SITE NOTED Upon assessment, bleeding at the dialysis site was noted. A moderate amount of bright red blood was noted on the dressing. Notified Charge Nurse Ana Rosa and was advised to call It Technical Specialist
--- NOTE | 2018-11-18 20:57 | NUR ---
NETWORK DESIGNER PAGED RE: DIALYSIS CATHETER Clamp Jig Assembler paged regarding dialysis catheter bleeding at the site. Awaiting call back.
--- NOTE | 2018-11-18 21:00 | NUR ---
RUN LEAD KATHRIN RETURNED CALL RE: BLEEDING FROM DIALYSIS SITE Edge Inker Kathrin returned call, informed Kathrin that patient received dialysis earlier today, at approximately 1600, and that patient is still bleeding from the dialysis site. Received orders to redress the site, lay the patient flat, and apply a sand bag to the area as direct pressure. Was also instructed to call Kathrin back if bleeding continues. Orders read back and verified. Will implement orders as received.
--- NOTE | 2018-11-18 21:30 | NUR ---
REDRESSED DIALYSIS CATHETER Assisted patient back into bed, redressed dialysis catheter, and applied sand bag to area as a method of direct pressure. Patient refused to lay flat in bed. Educated patient as to why she needs to lay flat in bed, patient verbalized understanding and still continues to refuse to lay flat in bed. Patient states that she can not tolerate laying flat in bed because she feels like she cannot breath. Patient is laying in low fowlers position with sand bag applied to dialysis site.
[2018-11-18 22:00] VITALS: BP 142/71
[2018-11-18] MEDS: Glucerna Carbsteady SHAKE Vanilla 8oz PO SCH (22:34)
[2018-11-18] MEDS: INSULIN LANTUS (GLARGINE) 1 /0.01ml (100units/ml) SC SCH (22:34)
--- NOTE | 2018-11-19 00:52 | NUR ---
COAT CHECKER KATHRIN CASTRO RE: BLEEDING AT THE DIALYSIS SITE COAT CHECKER KATHRIN CASTRO RE: CONTINUING BLEEDING AT THE DIALYSIS SITE Warehouse Associate Kathrin pagemarkus regarding the dialysis site still continuing to bleed. Awaiting call back.
--- NOTE | 2018-11-19 00:55 | NUR ---
C CONSULTANT KATHRIN RETURNED CALL RE: BLEEDING AT DIALYSIS SITE Family Services Assistant Kathrin returned call, notified Kathrin that the dialysis site is still continuing to bleed. Kathrin was informed that patient is refusing to lay flat in the bed but the sand bag is on the site. Orders received from Kathrin to leave the dressing alone, keep the sand bag on at all times, and continue to monitor site. Orders read back and verified.
[2018-11-19] MEDS: ALBUTEROL SULF 2.5 MG/0.5ML(0.5%) NEB SOLN NEB PRN ×3 (01:10→20:08)
[2018-11-19] MEDS: IPRATROPIUM BROM 0.5 MG/2.5ML INH SOL NEB PRN ×3 (01:10→20:08)
--- NOTE | 2018-11-19 02:10 | NUR ---
PATIENT ASSISTED TO BEDSIDE COMMODE/REFUSING TO LAY BACK IN BED Patient was assisted to bedside commode and is refusing to lay back in bed. Patient educated regarding keeping the sand bag on her dialysis site, patient verbalized understanding and continues to refuse to lay back in bed. Patient states she can keep the sand bag on the dialysis site sitting up. Patient is sitting in chair with sand bag on dialysis site, call light is within reach. Instructed patient to call for assistance as needed.
[2018-11-19] MEDS: cloNIDine HCL 0.1 MG TAB PO PRN (03:44)
--- NOTE | 2018-11-19 04:30 | NUR ---
MIDLINE REMOVED Midline to right upper arm DC'd with clean sterile technique, catheter fully intact. Pressure dressing applied to site. Patient tolerated well.
[2018-11-19 05:00] VITALS: BP 171/65
--- NOTE | 2018-11-19 05:00 | NUR ---
MIDLINE CONSULT PLACED Midline consult was placed.
[2018-11-19] MEDS: INSULIN LISPRO (HUMAN) 100 UNITS/ML ML SC SCH ×2 (05:37→12:28)
--- NOTE | 2018-11-19 05:50 | NUR ---
IV INSERTION ATTEMPTED TWICE IV insertion attempted twice but both times were unsuccessful.
[2018-11-19] MEDS: ACCU-CHEK COMFORT CURVE STRIP VI SCH ×6 (06:50→22:07)
[2018-11-19 07:08] LABS: Basophils # (auto) 0 uL; Eosinophils # (auto) 0 uL; Hemoglobin 7.8 g/dL (12.2-16.2); Monocytes # (auto) 0.4 uL; White Blood Cell 4.7 10^3/uL (4.4-10.8)
[2018-11-19 07:11] LABS: Basophils % (auto) 0.2 % (0.0-2.0); Eosinophils % (auto) 0.3 % (0.0-7.0); Hematocrit 23.9 % (36.0-46.0); Lymphocytes % (auto) 20.4 % (10.0-50.0); Mean Corpuscular Hemoglobin 33.2 pg (28.0-32.0); Mean Corpuscular Hgb Conc. 32.6 g/dL (32.0-36.0); Monocytes % (auto) 7.4 % (0.0-12.0); Neutrophils # (auto) 3.4 uL; Neutrophils % (auto) 71.7 % (37.0-80.0); Platelet Count (auto) 152 10^3/uL (140-450); Red Blood Cells 2.34 10^6/uL (4.0-5.20); Red Cell Distribution Width 16.3 % (11.8-14.3)
[2018-11-19 07:20] LABS: Albumin 2.5 g/dL (3.4-5.0); BUN/Creatinine Ratio 17.6; Potassium 4.3 mmol/L (3.5-5.1)
[2018-11-19 07:22] LABS: Bilirubin, Total 0.2 mg/dL (0.2-1.0); Total Protein 6.3 g/dL (6.4-8.2)
--- NOTE | 2018-11-19 07:28 | NUR ---
CRITICAL VALUE RECEIVED CALL FROM LAB REGARDING CRITICAL GLUCOSE 419. PER STORE RECEIVING SPECIALIST PANEL WAS DRAWN AT 0545. NOC SHIFT RN HAS SINCE ADMINISTERED HUMALOG 10U AND MOST RECENT VALUE 363. NOC RN WILL RECHECK GLUCOSE AT THIS TIME. CONTINUING TO MONITOR.
--- NOTE | 2018-11-19 07:40 | NUR ---
END OF SHIFT NOTE ASSUMED CARE OF PATIENT. PATIENT AWAKE AND ALERT LAYING IN BED. NO S/S OF DISTRESS OR SOB NOTED. BED IN LOWEST LOCKED POSITION, CALL LIGHT WITHIN REACH. REVIEWED POC WITH PATIENT AND INSTRUCTED TO CALL FOR ASSIST NEEDED. WILL CONTINUE TO MONITOR. Addendum: 11/19/18 at 0808 by MIRTA AVERY RN OPENING SHIFT NOTE
--- NOTE | 2018-11-19 07:40 | NUR ---
CLOSING SHIFT NOTE Endorsed patient care to Tracy SCHROEDER. Patient laying in bed with symmetrical chest rise and fall. Patient is on nasal cannula, 2L. Reeducated patient to leave sand bag at the dialysis site.
--- NOTE | 2018-11-19 07:42 | NUR ---
CALLED RADIOLOGY AND NOTIFIED THEM MIDLINE CONSULT WAS PLACED Notified radiology midline consult was placed for patient.
[2018-11-19 08:00] VITALS: BP 138/65
--- NOTE | 2018-11-19 08:01 | NUR ---
PATIENT REFUSAL PATIENT REFUSING TO STAY IN BED AND PREFERS CHAIR. THIS RN AND NURSES AID [employer] INSTRUCTED PATIENT TO SIT IN CHAIR AND CALL FOR ASSIST. PATIENT VERBALIZED UNDERSTANDING. CONTINUING TO MONITOR.
[2018-11-19] MEDS: FLUTICASONE PROP NASAL SPR 0.05 % (50MCG) 16GM EACHNOSTRI SCH ×2 (10:00→22:00)
[2018-11-19] MEDS: ENOXAPARIN SOD 30 MG/0.3 ML SYRINGE SC SCH (10:00)
--- NOTE | 2018-11-19 10:30 | NUR ---
Respiratory note: CALLED TO PATIENTS ROOM FOR PRN MED-NEB TX. UPON ASSESSING PATIENT IT WAS NOTED THAT PATIENT WAS AERATED WITH WET CRACKLES AND A SLIGHT CARDIAC WHEEZE FROM BEING FLUID OVERLOADED. MED-NEB NOT INDICATED AT THIS TIME THERE IS NO BRONCHOSPASM IDENTIFIED. PATIENT EDUCATED ON THIS. ELDA KIRBY MADE AWARE OF CLINICAL ASSESSMENT AND NOTIFIED OF THE MED-NEB NOT BEING INDICATED AT THIS TIME. SHE WAS ASKED IF PATIENT HAD DIURETIC ORDERS AND INDICATED THAT THERE WERE ORDERS. SHE WILL BE ADMINISTERING DIURETICS TO PATIENT TO HELP WITH HER SOB.
[2018-11-19] MEDS: METOLAZONE 5 MG TAB PO SCH (10:49)
[2018-11-19] MEDS: CHOLECALCIFEROL (VITD3) 1,000 UNIT TAB PO SCH (10:49)
[2018-11-19] MEDS: POTASSIUM CHL 20 Meq TABLET PO SCH (10:50)
[2018-11-19] MEDS: NIFEdipine ER 30 MG TAB PO SCH (10:50)
[2018-11-19] MEDS: METOPROLOL TARTRATE 50 MG TAB PO SCH ×2 (10:50→22:06)
[2018-11-19] MEDS: PANTOPRAZOLE 40 MG TAB PO SCH (10:51)
[2018-11-19] MEDS: CLOTRIMAZOLE 1 % CREAM 15GM TOP SCH ×2 (10:54→22:00)
--- NOTE | 2018-11-19 11:00 | NUR ---
MIDLINE PICC/MIDLINE RN AT BEDSIDE AT THIS TIME.
--- NOTE | 2018-11-19 11:50 | NUR ---
MIDLINE PICC/MIDLINE RN UNSUCCESSFUL AT THIS TIME. WILL ATTEMPT AT LATER TIME. CONTINUING TO MONITOR.
[2018-11-19 12:00] VITALS: BP 126/80
[2018-11-19] MEDS: Glucerna Carbsteady SHAKE Vanilla 8oz PO SCH ×2 (12:28→18:55)
[2018-11-19] MEDS ORDERED: HYDROmorphone HCL 2 MG/ML VL IV PRN (12:45)
[2018-11-19] MEDS ORDERED: DEXTROSE (50%) 50ML SYRG IV PRN (12:45)
[2018-11-19] MEDS ORDERED: LEVOFLOXACIN 250MG 50 ML IV ONE (12:45)
--- NOTE | 2018-11-19 13:27 | NUR ---
Respiratory note: PRN MED-NEB ADMINISTERED PER DR. MAZARIEGOS'S REQUEST.
--- NOTE | 2018-11-19 13:58 | NUR ---
chair time: call Rebeca at [facility] h[facility] and left message that ss is still working on getting medical renewed
[2018-11-19] MEDS: ALPRAZolam 0.5 MG TAB PO PRN ×2 (14:08→20:06)
--- NOTE | 2018-11-19 14:15 | NUR ---
PRESSURE DRESSING PER NOC RN. DR PINON REQUESTED X1 DRESSING CHANGE TO RIGHT UPPER CHEST TUNNEL CATH AND TO LEAVE SECOND DRESSING TO CLOT. AT THIS TIME, DRESSING IS SATURATED. PLACED GAUZE ROLL WITH PRESSURE TAPE TO SITE AND PAGE OUT TO MD AT THIS TIME. CONTINUING TO MONITOR.
--- NOTE | 2018-11-19 14:20 | NUR ---
PAGE OUT TO PAGE OUT TO DR OBANDO AT THIS TIME REGARDING TUNNEL CATHETER SITE CONTINUING TO BLEED. AWAITING CALL BACK AT THIS TIME.
--- NOTE | 2018-11-19 15:38 | NUR ---
Nutrition Follow-up Notes Wt.: 56.6 kg based on bed scale as of 11/18/18 Pt's on oxygen via nasal cannula, asleep, no immediate family member at beside during rounds this morning. Noted pt's tunnel catheter site's bleeding earlier, currently on CCHO 60 gms/meal, Renal Standard diet with Glucerna Shakes 1 carton BID, has adequate PO intake aeb 85% ave. consumed meals (x7) in last 2.5 days. Est. Needs BW [id number] kcal (23-25 kcal/kgBW), 86-100 gms pro (1.2-1.4 gms/kgBW r/t HD). Will continue to monitor pertinent labs and reassess nutrient need prn. reassessed as pt now on HD Labs: Gluc 419 H, Na 131 L, Cl 96 L, BUN 74 H, Cr 4.20 H, Ca 8.0 L, ALP 390 H, Tpro 6.3 L, Alb 2.5 L. Skin: Bradford scale 20, low risk, pt's right upper chest tunnel cath incision bleeding per inspector metal can. GI: Pt had 2 BM yesterday per inspector metal can. PES: Altered nutrition related lab values r/t current/chronic medical condition aeb elev RFT A1C, mod hypoalb, hypocalcemia, hyperglycemia Will continue to monitor PO intake, skin status, pertinent labs and weight trend. F/u in 3 to 5 days. Rec.: 1.) If Albumin level continues trending down, consider Prostat 1 pkt BID. 2.) Continue close supervision during meals. 3.) Refer pt to CDE/RD for further nutrition education and weight monitoring upon discharge. 4.) Continue current plan of care.
[2018-11-19 17:00] VITALS: BP 140/61
--- NOTE | 2018-11-19 17:01 | NUR ---
MIDLINE PLACEMENT Midline placed to the left upper arm via the basilic vein x1 attempt after x2 failed attempts earlier on the right. 18g, 10cm. Positive blood return and flushes easily. Secured with a biodisk, securement device and transparent dressing.
[2018-11-19] MEDS: InsuLIN REG 1unit/0.01ml Soln (100units/ml) SC SCH ×2 (17:55→22:18)
--- NOTE | 2018-11-19 18:53 | NUR ---
END OF SHIFT NOTE PATIENT RESTING COMFORTABLY IN BEDSIDE CHAIR. NO S/S OF DISTRESS OR SOB NOTED. CALL LIGHT WITHIN REACH, FAMILY AT BEDSIDE. WILL ENDORSE CARE TO NOC RN.
--- NOTE | 2018-11-19 19:45 | NUR ---
Opening Shift Note Assumed care of patient, awake and alert. Family at bedside. No S/S of distress/SOB or pain. Patient on 3L nasal canula. Patient sitting on chair at this time, instructed to call and not get up on her own. Bed locked in lowest position, side rails upx2, call light within reach. Instructed on POC and to call for assist PRN, will continue to monitor for changes Q1hr and PRN.
[2018-11-19] MEDS: PROMETHAZINE HCL 25 MG/ML 1ML IV PRN (20:06)
[2018-11-19 21:57] VITALS: BP 157/91
[2018-11-19] MEDS: INSULIN LANTUS (GLARGINE) 1 /0.01ml (100units/ml) SC SCH (22:00)
[2018-11-20] MEDS: traMADol HCL 50 MG TAB PO PRN ×2 (00:53→20:45)
--- NOTE | 2018-11-20 01:12 | NUR ---
Reinforced sandbag dressing on patient right upper chest cath. Site is still saturated with blood. Will continue to monitor.
[2018-11-20] MEDS: ALPRAZolam 0.5 MG TAB PO PRN ×3 (02:17→18:11)
[2018-11-20 05:00] VITALS: BP 167/79
[2018-11-20] MEDS: ACETAMINOPHEN 500 MG TAB PO PRN ×2 (05:34→19:55)
[2018-11-20] MEDS: cloNIDine HCL 0.1 MG TAB PO PRN ×2 (05:35→21:22)
[2018-11-20] MEDS: ACCU-CHEK COMFORT CURVE STRIP VI SCH ×8 (06:38→21:29)
[2018-11-20] MEDS: InsuLIN REG 1unit/0.01ml Soln (100units/ml) SC SCH ×4 (06:38→21:29)
[2018-11-20] MEDS ORDERED: EPOETIN ALFA 10,000 UNIT/1 ML VIAL SC ONE (07:00)
--- NOTE | 2018-11-20 07:02 | NUR ---
Respiratory note: PRN [place] TX NOT INDICATED AT THIS TIME. HR 59, RR 18, POX 99% ON 4 L NC, BS CLEAR AND DIMINISHED. PT IS SLEEPING COMFORTABLY.
[2018-11-20 07:04] LABS: Basophils # (auto) 0 uL; Eosinophils # (auto) 0 uL; Hemoglobin 7.2 g/dL (12.2-16.2); Lymphocytes # (auto) 1.3 uL; Monocytes # (auto) 0.5 uL; Nucleated Red Blood Cells % 0.1 %
[2018-11-20 07:08] LABS: Basophils % (auto) 0.5 % (0.0-2.0); Eosinophils % (auto) 0.4 % (0.0-7.0); Hematocrit 21.9 % (36.0-46.0); Lymphocytes % (auto) 22.5 % (10.0-50.0); Mean Corpuscular Hemoglobin 32.9 pg (28.0-32.0); Mean Corpuscular Hgb Conc. 33.2 g/dL (32.0-36.0); Mean Corpuscular Volume 99.2 fL (80.0-100.0); Monocytes % (auto) 9.6 % (0.0-12.0); Neutrophils # (auto) 3.8 uL; Platelet Count (auto) 150 10^3/uL (140-450); Red Cell Distribution Width 15.8 % (11.8-14.3); White Blood Cell 5.7 10^3/uL (4.4-10.8)
[2018-11-20] MEDS ORDERED: SODIUM CHL 0.9% 1000 ML BAG XX ONE (07:15)
[2018-11-20 07:24] LABS: Albumin 2.3 g/dL (3.4-5.0); BUN/Creatinine Ratio 17.9; Potassium 4.5 mmol/L (3.5-5.1)
[2018-11-20 07:26] LABS: Bilirubin, Total 0.2 mg/dL (0.2-1.0)
[2018-11-20 07:27] LABS: % Iron Saturation 5.4 % (15-50)
--- NOTE | 2018-11-20 07:50 | NUR ---
Opening Shift Note Assumed care of patient, awake and alert sitting up in chair at bedside. No S/S of distress/SOB or pain. Instructed on POC and to call for assist PRN, will continue to monitor for changes Q1hr and PRN.
[2018-11-20 08:30] VITALS: BP 139/65
[2018-11-20] MEDS: CLOTRIMAZOLE 1 % CREAM 15GM TOP SCH ×2 (10:00→21:29)
[2018-11-20] MEDS: METOPROLOL TARTRATE 50 MG TAB PO SCH ×2 (10:00→21:22)
[2018-11-20] MEDS: FLUTICASONE PROP NASAL SPR 0.05 % (50MCG) 16GM EACHNOSTRI SCH ×2 (10:00→22:00)
[2018-11-20] MEDS ORDERED: LEVOFLOXACIN 250MG 50 ML IV SCH (10:00)
[2018-11-20] MEDS: PANTOPRAZOLE 40 MG TAB PO SCH (10:19)
[2018-11-20] MEDS: POTASSIUM CHL 20 Meq TABLET PO SCH (10:20)
[2018-11-20] MEDS: CHOLECALCIFEROL (VITD3) 1,000 UNIT TAB PO SCH (10:22)
[2018-11-20] MEDS: METOLAZONE 5 MG TAB PO SCH (10:22)
[2018-11-20] MEDS: Glucerna Carbsteady SHAKE Vanilla 8oz PO SCH ×2 (10:23→18:08)
[2018-11-20 12:37] VITALS: BP 137/60
--- NOTE | 2018-11-20 14:39 | NUR ---
Patient c/o of SOB , increase o2 to 6 LMP o2 92 %, RT paged awaiting to call back.
[2018-11-20] MEDS: IPRATROPIUM BROM 0.5 MG/2.5ML INH SOL NEB PRN ×2 (14:45→19:24)
[2018-11-20] MEDS: ALBUTEROL SULF 2.5 MG/0.5ML(0.5%) NEB SOLN NEB PRN ×2 (14:45→19:24)
--- NOTE | 2018-11-20 15:36 | NUR ---
Dialysis Phone call from Dr. Hoang regarding patient. States that patient will have dialysis 11/21/18 and to call in prescription for patient to [facility].
[2018-11-20] MEDS: NIFEdipine ER 30 MG TAB PO SCH (15:58)
[2018-11-20 17:01] VITALS: BP 143/68
--- NOTE | 2018-11-20 19:45 | NUR ---
Opening Shift Note Assumed care of patient, awake and alert. Family at bedside. Patient did not have dialysis today as scheduled and will resume tomorrow. Patient on 4L Oxymizer and c/o SOB with exertion. Auscultated lungs with crackles heard bilaterally. Patient c/o of 10/10 pain, will medicate per md order. Patient sitting on chair but reminded patient not to get up on her own and use a call light. Instructed on POC and to call for assist PRN, will continue to monitor for changes Q1hr and PRN.
[2018-11-20] MEDS: INSULIN LANTUS (GLARGINE) 1 /0.01ml (100units/ml) SC SCH (21:49)
[2018-11-20 22:00] VITALS: BP 168/75
--- NOTE | 2018-11-20 22:27 | NUR ---
Patient c/o of SOB and the need for dialysis tonight. Patient's saturation is at 94% at 6 L. Educated patient that dialysis will resume in the morning and to stay calm to prevent any SOB exertion. Reminded patient that xanax will be given in the next scheduled dose as well as PRN breathing treatments. Patient verbalized understanding. Will continue to monitor.
[2018-11-20] MEDS: hydrALAZINE HCL 20 MG/ML VL IV PRN (23:30)
--- NOTE | 2018-11-20 23:36 | NUR ---
Blood Pressure Patient's blood pressure is 174/55 even after administration of lopressor 100mg and clonidine 0.1mg. Given hydralazine 10mg IV PRN as ordered. Will continue to monitor.
[2018-11-21] MEDS: ALPRAZolam 0.5 MG TAB PO PRN ×4 (00:18→23:13)
[2018-11-21] MEDS: IPRATROPIUM BROM 0.5 MG/2.5ML INH SOL NEB PRN ×2 (00:50→07:01)
[2018-11-21] MEDS: ALBUTEROL SULF 2.5 MG/0.5ML(0.5%) NEB SOLN NEB PRN ×2 (00:50→07:01)
[2018-11-21 01:11] VITALS: BP 174/55
[2018-11-21 05:00] VITALS: BP 147/70
[2018-11-21] MEDS: ACETAMINOPHEN 500 MG TAB PO PRN ×2 (05:29→13:47)
[2018-11-21] MEDS: InsuLIN REG 1unit/0.01ml Soln (100units/ml) SC SCH ×4 (06:30→22:37)
[2018-11-21] MEDS: ACCU-CHEK COMFORT CURVE STRIP VI SCH ×8 (06:31→22:00)
[2018-11-21 06:49] LABS: Basophils # (auto) 0 uL; Eosinophils # (auto) 0 uL; Lymphocytes # (auto) 0.9 uL; Mean Corpuscular Hemoglobin 33.1 pg (28.0-32.0); Nucleated Red Blood Cells % 0.1 %
[2018-11-21 06:51] LABS: Basophils % (auto) 0.3 % (0.0-2.0); Eosinophils % (auto) 0.2 % (0.0-7.0); Hematocrit 22.5 % (36.0-46.0); Hemoglobin 7.5 g/dL (12.2-16.2); Lymphocytes % (auto) 14.6 % (10.0-50.0); Mean Corpuscular Hgb Conc. 33.4 g/dL (32.0-36.0); Mean Corpuscular Volume 99.1 fL (80.0-100.0); Monocytes # (auto) 0.4 uL; Monocytes % (auto) 7.2 % (0.0-12.0); Neutrophils # (auto) 4.8 uL; Neutrophils % (auto) 77.7 % (37.0-80.0); Platelet Count (auto) 151 10^3/uL (140-450); Red Blood Cells 2.27 10^6/uL (4.0-5.20); Red Cell Distribution Width 15.9 % (11.8-14.3); White Blood Cell 6.2 10^3/uL (4.4-10.8)
[2018-11-21] MEDS: LEVOFLOXACIN 250MG 50 ML IV SCH (07:24)
[2018-11-21 07:28] LABS: Alanine Aminotransferase 22 U/L (13-56); Alkaline Phosphatase 300 U/L (45-117); Aspartate Aminotransferase 20 U/L (15-37); Bilirubin, Total 0.5 mg/dL (0.2-1.0); GFR African American 12 mL/min; GFR Non-African American 10 mL/min; Total Protein 5.9 g/dL (6.4-8.2)
--- NOTE | 2018-11-21 07:30 | NUR ---
Opening Shift Note Assumed care of patient, awake and alert in respiratory distress. Respiratory therapist at bedside. Patient's saturation is 86-89 on 12L via Oxymizer. Patient is non-compliant with bipap at this time. Paged nephrology awaiting call back.
[2018-11-21 07:34] LABS: Anion Gap 14 (5-15); Carbon Dioxide 19 mmol/L (21-32); Chloride 97 mmol/L (98-107); Glucose 245 mg/dL (74-106); Potassium 4.7 mmol/L (3.5-5.1); Sodium 130 mmol/L (136-145)
--- NOTE | 2018-11-21 07:34 | NUR ---
Lab called for critical BUN 91 and Creatinine 4.8.
[2018-11-21 07:35] LABS: Albumin 2.2 g/dL (3.4-5.0); Blood Urea Nitrogen 91 mg/dL (7-18); Calcium 7.7 mg/dL (8.5-10.1)
[2018-11-21] MEDS ORDERED: BUMETANIDE 1 MG TAB PO ONE (07:45)
--- NOTE | 2018-11-21 07:45 | NUR ---
Telephone orders from hospitalist to administer Bumex 1mg PO, rebreather mask, obtain CXR.
--- NOTE | 2018-11-21 07:48 | NUR ---
Received call from dialysis nurse, they have stat order to dialyze patient.
--- NOTE | 2018-11-21 07:50 | NUR ---
RT NOTE: PT. COMPLAINING OF SOB. PT. BREATH SOUNDS ARE COARSE/CRACKLES T/O. PT. STATES SHE NEEDS DIALYSIS. PT. HR 69, RR 22, POX 95% ON 15L. NRB MASK. PT. IS REFUSING BIPAP AT THIS TIME, SHE CANNOT TOLERATE THE MASK ON HER FACE SHE STATES SHE IS VERY CLAUSTROPHOBIC. MANAGER MARKET ASSISTING HER TO COMMODE. WILL CONTINUE TO MONITOR.
[2018-11-21] MEDS ORDERED: SODIUM CHL 0.9% 1000 ML BAG XX ONE (08:00)
[2018-11-21] MEDS: Glucerna Carbsteady SHAKE Vanilla 8oz PO SCH ×2 (08:00→18:04)
[2018-11-21] MEDS: PROMETHAZINE HCL 25 MG/ML 1ML IV PRN (08:58)
[2018-11-21 09:00] VITALS: BP 180/78
[2018-11-21] MEDS: CLOTRIMAZOLE 1 % CREAM 15GM TOP SCH ×2 (10:00→22:00)
[2018-11-21] MEDS: FLUTICASONE PROP NASAL SPR 0.05 % (50MCG) 16GM EACHNOSTRI SCH ×2 (10:00→22:00)
[2018-11-21] MEDS: PANTOPRAZOLE 40 MG TAB PO SCH (11:47)
[2018-11-21] MEDS: CHOLECALCIFEROL (VITD3) 1,000 UNIT TAB PO SCH (11:47)
[2018-11-21] MEDS: POTASSIUM CHL 20 Meq TABLET PO SCH (11:49)
[2018-11-21] MEDS: NIFEdipine ER 30 MG TAB PO SCH (11:49)
[2018-11-21] MEDS: METOPROLOL TARTRATE 50 MG TAB PO SCH ×2 (11:50→22:25)
[2018-11-21] MEDS: METOLAZONE 5 MG TAB PO SCH (11:50)
[2018-11-21 13:00] VITALS: BP 136/54
[2018-11-21 17:00] VITALS: BP 148/86
--- NOTE | 2018-11-21 19:40 | NUR ---
Opening Shift Note Assumed care of patient, sitting on a chair, on O2 at 4 Lpm/oxymizer, at bedside. Discussed on POC and to call for assist PRN, patient verbalized understanding, call light within reach, will continue to monitor for changes Q1hr and PRN.
[2018-11-21] MEDS ORDERED: EPOETIN ALFA 10,000 UNIT/1 ML VIAL SC ONE (21:00)
--- NOTE | 2018-11-21 21:05 | NUR ---
Provided reclining chair to the patient
[2018-11-21 21:34] VITALS: BP 115/46
[2018-11-21] MEDS: INSULIN LANTUS (GLARGINE) 1 /0.01ml (100units/ml) SC SCH (22:38)
--- NOTE | 2018-11-21 22:45 | NUR ---
Unable to give Epogen at this time, med not available, will call Pharmacy tomorrow
[2018-11-21] MEDS: traMADol HCL 50 MG TAB PO PRN (23:13)
--- NOTE | 2018-11-22 01:30 | NUR ---
Patient was short of breath, wheezes and crackles noted upon auscultation, O2 Sat at 90%. Paged RT for breathing treatment
[2018-11-22] MEDS: ALBUTEROL SULF 2.5 MG/0.5ML(0.5%) NEB SOLN NEB PRN ×2 (02:00→12:37)
[2018-11-22] MEDS: IPRATROPIUM BROM 0.5 MG/2.5ML INH SOL NEB PRN ×2 (02:00→12:37)
--- NOTE | 2018-11-22 02:20 | NUR ---
Spoke to hospitalist Yaniv and updated on patient's status. Received new order at this time and read back, will carry out order
[2018-11-22] MEDS ORDERED: FUROSEMIDE 20 MG/2 ML VIAL IV ONE (02:30)
[2018-11-22 05:11] LABS: Basophils # (auto) 0 uL; Basophils % (auto) 0.3 % (0.0-2.0); Eosinophils # (auto) 0 uL; Hemoglobin 7.8 g/dL (12.2-16.2); Monocytes # (auto) 0.4 uL; Nucleated Red Blood Cells % 0.1 %; Platelet Count (auto) 138 10^3/uL (140-450)
[2018-11-22 05:14] LABS: Eosinophils % (auto) 0.4 % (0.0-7.0); Hematocrit 23.2 % (36.0-46.0); Lymphocytes # (auto) 0.7 uL; Lymphocytes % (auto) 15.3 % (10.0-50.0); Mean Corpuscular Hemoglobin 33.2 pg (28.0-32.0); Mean Corpuscular Hgb Conc. 33.6 g/dL (32.0-36.0); Mean Corpuscular Volume 99.1 fL (80.0-100.0); Monocytes % (auto) 9.5 % (0.0-12.0); Neutrophils # (auto) 3.3 uL; Neutrophils % (auto) 74.5 % (37.0-80.0); Red Blood Cells 2.34 10^6/uL (4.0-5.20); Red Cell Distribution Width 15.9 % (11.8-14.3); White Blood Cell 4.4 10^3/uL (4.4-10.8)
[2018-11-22] MEDS: ACETAMINOPHEN 500 MG TAB PO PRN ×2 (05:22→12:06)
[2018-11-22] MEDS: cloNIDine HCL 0.1 MG TAB PO PRN (05:22)
[2018-11-22] MEDS: ALPRAZolam 0.5 MG TAB PO PRN ×3 (05:23→18:48)
[2018-11-22 05:40] VITALS: BP 180/86
[2018-11-22 05:41] LABS: BUN/Creatinine Ratio 14.9; Calcium 7.7 mg/dL (8.5-10.1)
[2018-11-22] MEDS: ACCU-CHEK COMFORT CURVE STRIP VI SCH ×6 (06:30→22:39)
[2018-11-22] MEDS: InsuLIN REG 1unit/0.01ml Soln (100units/ml) SC SCH ×4 (06:30→22:38)
--- NOTE | 2018-11-22 07:35 | NUR ---
Opening Shift Note Assumed care of patient, awake and alert. Patient complained of SOB, RT aware. Oxygen saturation 92%. Instructed on POC and to call for assist PRN, will continue to monitor for changes Q1hr and PRN.
--- NOTE | 2018-11-22 08:36 | NUR ---
INFORMED NATALIE SS TO SEE PT CONCERNING HOME MEDS, PER JUSTIN SS, PT CAN GO TO [facility] FOR MEDS. NATALIE IS TO SEE PT AND SPEAK WITH DR LA
[2018-11-22 08:51] VITALS: BP 162/74
[2018-11-22] MEDS: FLUTICASONE PROP NASAL SPR 0.05 % (50MCG) 16GM EACHNOSTRI SCH ×2 (10:00→22:00)
[2018-11-22] MEDS: CLOTRIMAZOLE 1 % CREAM 15GM TOP SCH ×3 (10:00→22:39)
[2018-11-22] MEDS: PANTOPRAZOLE 40 MG TAB PO SCH (10:58)
[2018-11-22] MEDS: POTASSIUM CHL 20 Meq TABLET PO SCH (10:59)
[2018-11-22] MEDS: METOLAZONE 5 MG TAB PO SCH (10:59)
[2018-11-22] MEDS: NIFEdipine ER 30 MG TAB PO SCH (10:59)
[2018-11-22] MEDS: CHOLECALCIFEROL (VITD3) 1,000 UNIT TAB PO SCH (11:00)
[2018-11-22] MEDS: METOPROLOL TARTRATE 50 MG TAB PO SCH ×2 (11:00→22:38)
[2018-11-22] MEDS: Glucerna Carbsteady SHAKE Vanilla 8oz PO SCH ×2 (11:01→18:52)
[2018-11-22] MEDS: PROMETHAZINE HCL 25 MG/ML 1ML IV PRN (12:05)
[2018-11-22 12:23] VITALS: BP 157/71
[2018-11-22] MEDS ORDERED: HYDROmorphone HCL 2 MG/ML VL IV PRN (13:00)
[2018-11-22] MEDS ORDERED: LORazepam 2MG/ML-1ML VIAL IV PRN (13:00)
[2018-11-22] MEDS ORDERED: TEMAZEPAM 15 MG CAP PO PRN (13:00)
--- NOTE | 2018-11-22 14:41 | NUR ---
Nutrition Follow-up Notes Wt.: 56.6 kg Pt's on oxygen via nasal cannula, asleep, no immediate family member at beside during rounds this morning. per records pt had HD 2/. pt with no distress noted, currently on CCHO 60 gms/meal, Renal Standard diet with Glucerna Shakes 1 carton BID, with adequate Po of > 75% x 2 days per RN doc Est. Needs BW [id number] kcal (23-25 kcal/kgBW), 86-100 gms pro (1.2-1.4 gms/kgBW r/t HD). Will continue to monitor pertinent labs and reassess nutrient need prn. reassessed as pt now on HD Labs: BUN 55 H, CREAT 3.68 H, CA 7.7 L, ALB 2.2 L Skin: Bradford scale 19, low risk, pt's right upper chest tunnel cath incision bleeding per flying teacher. GI: Pt had 1 BM today per flying teacher. PES: Altered nutrition related lab values r/t current/chronic medical condition aeb elev RFT A1C, mod hypoalb, hypocalcemia, hyperglycemia Will continue to monitor PO intake, skin status, pertinent labs and weight trend. F/u in 3 to 5 days. Rec.: 1.) If Albumin level continues trending down, consider Prostat 1 pkt BID. 2.) Continue close supervision during meals. 3.) Refer pt to CDE/RD for further nutrition education and weight monitoring upon discharge. 4.) Continue current plan of care.
[2018-11-22 17:23] VITALS: BP 157/70
[2018-11-22] MEDS: SALINE 0.65 % NASAL SPRAY 45ML BOTTLE EACHNOSTRI SCH ×2 (18:47→22:00)
[2018-11-22] MEDS: traMADol HCL 50 MG TAB PO PRN (18:49)
--- NOTE | 2018-11-22 19:35 | NUR ---
Opening Shift Note Assumed care of patient, sitting on a reclining chair, on O2 at 8 Lpm/oxymizer, at bedside. Aware of POC and to call for assist PRN, call light within reach, will continue to monitor for changes Q1hr and PRN.
[2018-11-22 22:25] VITALS: BP 125/56
[2018-11-22] MEDS: INSULIN LANTUS (GLARGINE) 1 /0.01ml (100units/ml) SC SCH (22:39)
[2018-11-23] MEDS: ALPRAZolam 0.5 MG TAB PO PRN (02:57)
--- NOTE | 2018-11-23 03:20 | NUR ---
Patient is having wheezes, requesting a breathing treatment. Paged RT
--- NOTE | 2018-11-23 04:00 | NUR ---
Follow up on breathing treatment, paged again RT for the 2nd time. Patient still has wheezes and short of breath
[2018-11-23] MEDS: ACETAMINOPHEN 500 MG TAB PO PRN (04:04)
[2018-11-23] MEDS: ALBUTEROL SULF 2.5 MG/0.5ML(0.5%) NEB SOLN NEB PRN (04:41)
[2018-11-23] MEDS: IPRATROPIUM BROM 0.5 MG/2.5ML INH SOL NEB PRN (04:41)
[2018-11-23 05:51] VITALS: BP 180/65
[2018-11-23] MEDS: SALINE 0.65 % NASAL SPRAY 45ML BOTTLE EACHNOSTRI SCH ×4 (06:33→21:59)
[2018-11-23] MEDS: InsuLIN REG 1unit/0.01ml Soln (100units/ml) SC SCH ×4 (06:34→21:58)
[2018-11-23] MEDS: ACCU-CHEK COMFORT CURVE STRIP VI SCH ×4 (06:34→21:45)
[2018-11-23 06:56] LABS: Basophils # (auto) 0 uL; Eosinophils # (auto) 0 uL; Lymphocytes # (auto) 0.9 uL; Monocytes # (auto) 0.4 uL
[2018-11-23 06:58] LABS: Basophils % (auto) 0.3 % (0.0-2.0); Eosinophils % (auto) 0.2 % (0.0-7.0); Hematocrit 22.7 % (36.0-46.0); Hemoglobin 7.5 g/dL (12.2-16.2); Lymphocytes % (auto) 18.5 % (10.0-50.0); Mean Corpuscular Hemoglobin 32.5 pg (28.0-32.0); Mean Corpuscular Hgb Conc. 33.2 g/dL (32.0-36.0); Mean Corpuscular Volume 97.8 fL (80.0-100.0); Monocytes % (auto) 8.6 % (0.0-12.0); Neutrophils # (auto) 3.6 uL; Neutrophils % (auto) 72.4 % (37.0-80.0); Nucleated Red Blood Cells % 0.1 %; Platelet Count (auto) 138 10^3/uL (140-450); Red Blood Cells 2.32 10^6/uL (4.0-5.20); Red Cell Distribution Width 16.3 % (11.8-14.3)
[2018-11-23] MEDS ORDERED: SODIUM CHL 0.9% 1000 ML BAG XX ONE (07:00)
[2018-11-23 07:05] LABS: BUN/Creatinine Ratio 14.5; Calcium 7.9 mg/dL (8.5-10.1); Potassium 4.1 mmol/L (3.5-5.1)
[2018-11-23 07:09] LABS: % Iron Saturation 5.1 % (15-50)
--- NOTE | 2018-11-23 07:25 | NUR ---
Open Shift Note Received report on patient, awake and sitting in chair next to bed. Patient shows no signs of distress at this time. Discussed POC with patient. Bed in lowest locked position, side rails up x2, and call light within reach. Will continue to monitor.
--- NOTE | 2018-11-23 07:40 | NUR ---
Dialysis Nurse at Bedside Dialysis nurse present at bedside. No distress noted.
[2018-11-23 09:00] VITALS: BP 160/67
[2018-11-23] MEDS: CLOTRIMAZOLE 1 % CREAM 15GM TOP SCH ×2 (10:00→21:46)
[2018-11-23] MEDS: FLUTICASONE PROP NASAL SPR 0.05 % (50MCG) 16GM EACHNOSTRI SCH ×2 (10:00→21:59)
[2018-11-23] MEDS: Glucerna Carbsteady SHAKE Vanilla 8oz PO SCH ×2 (10:36→18:26)
[2018-11-23] MEDS: PROMETHAZINE HCL 25 MG/ML 1ML IV PRN (10:37)
[2018-11-23] MEDS: ERGOCALCIFEROL 50,000 UNIT(1.25MG) CAP PO SCH (12:01)
[2018-11-23] MEDS: PANTOPRAZOLE 40 MG TAB PO SCH (12:01)
[2018-11-23] MEDS: POTASSIUM CHL 20 Meq TABLET PO SCH (12:01)
[2018-11-23] MEDS: NIFEdipine ER 30 MG TAB PO SCH (12:05)
[2018-11-23] MEDS: METOPROLOL TARTRATE 50 MG TAB PO SCH ×3 (12:06→22:01)
[2018-11-23] MEDS: METOLAZONE 5 MG TAB PO SCH (12:06)
[2018-11-23] MEDS: CHOLECALCIFEROL (VITD3) 1,000 UNIT TAB PO SCH (12:18)
[2018-11-23] MEDS: LEVOFLOXACIN 250MG 50 ML IV SCH (12:27)
[2018-11-23 12:59] VITALS: BP 166/76
--- NOTE | 2018-11-23 13:53 | NUR ---
Pt has a confirmed chair time for hemodialysis treatments of 9:45am luis antoniowf. For her first dialysis appt post d/c pt will need to arrive at [facility]( [address] [place], [id number]) at 9:00am. Also discussed prescription meds coverage post D/C. Per pt she has some meds already at home and has a "little" insulin. Explained to pt that although [facility] will be taking her on because Medi-Stephen will be resumed in a few weeks and will go retroactive, the pharmacy's will need Medi-Stephen to be active or pay in harman. Explained to pt and covering MD, Dr. Vo, that generic version of her current home meds through Dr. TATTOFFt would run around $60. Generic meds can be obtained through [employer] for $4. Pt can also go to [facility] for additional meds that are not covered. Pt verbalized understanding.
--- NOTE | 2018-11-23 14:10 | NUR ---
Dr Vo at Bedside Dr Vo at patient bedside.
[2018-11-23] MEDS ORDERED: guaiFENesin 200 MG/10 ML UD PO PRN (14:15)
[2018-11-23] MEDS ORDERED: PARoxetine 20 MG TAB PO ONE (14:15)
[2018-11-23] MEDS ORDERED: PIPERACILLIN-TAZOB 0.75 GM in D5W 5% 50 ML IV PRN (14:30)
[2018-11-23 16:44] VITALS: BP 158/56
[2018-11-23] MEDS: cloNIDine HCL 0.1 MG TAB PO PRN (16:48)
[2018-11-23] MEDS: PIPERACILLIN-TAZOB 2.25GM 50 ML IV SCH ×2 (16:57→21:57)
[2018-11-23] MEDS: traMADol HCL 50 MG TAB PO PRN (17:11)
--- NOTE | 2018-11-23 19:30 | NUR ---
Opening shift note Patient sitting on the bedside chair with eyes closed. Pt responds to tactile stimuli, however, goes back to sleep. Patient's respiration even and unlabored at this time. No non verbal cues to pain noted and observed. Spouse at bedside. Plan of care discussed, spouse verbalized understanding. All needs attended, will continue to monitor.
[2018-11-23] MEDS ORDERED: EPOETIN ALFA 10,000 UNIT/1 ML VIAL SC ONE (21:00)
--- NOTE | 2018-11-23 21:00 | NUR ---
Epogen administered subcutaneous on patient's abdomen. HGB at 7.5. Will continue to monitor.
[2018-11-23] MEDS: INSULIN LANTUS (GLARGINE) 1 /0.01ml (100units/ml) SC SCH (21:58)
[2018-11-23 22:00] VITALS: BP 122/50
--- NOTE | 2018-11-23 22:00 | NUR ---
Patient refused Flonase and Metoprolol as ordered. Risk and benefits explained, however, patient still refused. Spouse aware.
--- NOTE | 2018-11-23 22:15 | NUR ---
Patient assisted from bedside chair to bedside commode to bed with DIRECTOR NON PROFIT. Maintained head of bed elevated. All needs attended, will continue to monitor.
--- NOTE | 2018-11-24 03:00 | NUR ---
Patient assisted from bed to bedside commode to bedside chair with BAND SHOVER. Patient had moderate amount of soft brown stool. Good perineal care provided. All needs attended, will continue to monitor.
[2018-11-24] MEDS: PROMETHAZINE HCL 25 MG/ML 1ML IV PRN ×2 (03:31→06:59)
[2018-11-24 04:06] VITALS: BP 122/50
[2018-11-24] MEDS: SALINE 0.65 % NASAL SPRAY 45ML BOTTLE EACHNOSTRI SCH ×4 (05:07→22:30)
[2018-11-24] MEDS: PIPERACILLIN-TAZOB 2.25GM 50 ML IV SCH ×3 (05:08→22:25)
[2018-11-24 05:30] VITALS: BP 116/50
[2018-11-24 06:47] LABS: Basophils # (auto) 0 uL; Basophils % (auto) 0.3 % (0.0-2.0); Eosinophils # (auto) 0 uL; Eosinophils % (auto) 0.1 % (0.0-7.0); Hematocrit 23.1 % (36.0-46.0); Hemoglobin 7.6 g/dL (12.2-16.2); Lymphocytes # (auto) 0.8 uL; Lymphocytes % (auto) 16.2 % (10.0-50.0); Mean Corpuscular Hemoglobin 32.2 pg (28.0-32.0); Mean Corpuscular Hgb Conc. 32.9 g/dL (32.0-36.0); Mean Corpuscular Volume 97.9 fL (80.0-100.0); Monocytes # (auto) 0.4 uL; Monocytes % (auto) 7.9 % (0.0-12.0); Neutrophils # (auto) 3.9 uL; Neutrophils % (auto) 75.5 % (37.0-80.0); Nucleated Red Blood Cells % 0.1 %; Platelet Count (auto) 146 10^3/uL (140-450); Red Blood Cells 2.36 10^6/uL (4.0-5.20); Red Cell Distribution Width 16.2 % (11.8-14.3); White Blood Cell 5.2 10^3/uL (4.4-10.8)
[2018-11-24] MEDS: InsuLIN REG 1unit/0.01ml Soln (100units/ml) SC SCH ×4 (06:58→22:41)
[2018-11-24] MEDS: ACCU-CHEK COMFORT CURVE STRIP VI SCH ×4 (06:59→22:26)
--- NOTE | 2018-11-24 07:02 | NUR ---
Patient complained of nausea. Will administer antinausea medication as ordered. Assisted patient from bed to bedside chair as requested. Will continue to monitor.
[2018-11-24 07:11] LABS: BUN/Creatinine Ratio 10.5; Calcium 7.7 mg/dL (8.5-10.1); Potassium 4.4 mmol/L (3.5-5.1)
--- NOTE | 2018-11-24 07:30 | NUR ---
Open Shift Note Received report on patient, asleep in chair next to bedside. Patient shows no signs of distress at this time. Chair in locked position, sitting up right. Bed in lowest locked position, side rails up x2, and call light within reach. Will continue to monitor.
[2018-11-24] MEDS: Glucerna Carbsteady SHAKE Vanilla 8oz PO SCH ×2 (08:00→17:28)
--- NOTE | 2018-11-24 08:18 | NUR ---
PT. ASSESSED FOR PRN. MN. TX. , NO RESP. DISTRESS NOTED. PT. IS SITTING UP IN A CHAIR AT BEDSIDE SLEEPING. BS. ARE CLEAR AND DIMINISHED AT THE BASES. HR=60,RR=20,SP02= 95% ON 3LPM OXYMIZER. PRN. TX. NOT INDICATED AT THIS TIME. PT. INSTRUCTED TO CALL IF NEEDED. NO TX. GIVEN.
[2018-11-24] MEDS: FLUTICASONE PROP NASAL SPR 0.05 % (50MCG) 16GM EACHNOSTRI SCH ×2 (10:00→22:00)
[2018-11-24] MEDS: PANTOPRAZOLE 40 MG TAB PO SCH (10:37)
[2018-11-24] MEDS: CHOLECALCIFEROL (VITD3) 1,000 UNIT TAB PO SCH (10:37)
[2018-11-24] MEDS: POTASSIUM CHL 20 Meq TABLET PO SCH (10:38)
[2018-11-24] MEDS: PARoxetine 20 MG TAB PO SCH (10:38)
[2018-11-24] MEDS: CLOTRIMAZOLE 1 % CREAM 15GM TOP SCH ×2 (10:38→22:31)
[2018-11-24] MEDS: METOLAZONE 5 MG TAB PO SCH (10:38)
[2018-11-24] MEDS: METOPROLOL TARTRATE 50 MG TAB PO SCH ×2 (10:39→22:26)
[2018-11-24] MEDS: NIFEdipine ER 30 MG TAB PO SCH (10:40)
--- NOTE | 2018-11-24 10:45 | NUR ---
Douglas catheter insertion Patient assessed and determined to be in need of douglas catheter. Order obtained from MD. Patient educated on catheter and reason for insertion. All questions answered. Douglas catheter 16 guage Turkmen inserted with clean sterile technique. Patient tolerated well.
--- NOTE | 2018-11-24 11:00 | NUR ---
Diarrhea Patient had multiple episodes of diarrhea. Ordered C diff lab per protocol. Placed specimen cup by bedside, awaiting sample.
[2018-11-24] MEDS: BUMETANIDE (0.25 MG/ML) INJ 10ML IV SCH ×2 (12:31→17:17)
[2018-11-24 17:00] VITALS: BP 148/65
--- NOTE | 2018-11-24 18:55 | NUR ---
End of Shift Endorsed care to NOC nurse. Patient shows no signs of distress at this time. Bed in lowest locked position, side rails up x2, and call light within reach. at bedside.
--- NOTE | 2018-11-24 21:20 | NUR ---
Respiratory note: PT ASSESSED FOR PRN MED NEB TX. HR 71, RR 14, SPO2 93% ON 3L OXYMIZER, BS CLEAR/DIMINISHED. NO SIGNS OF ANY RESPIRATORY DISTRESS NOTED. ADVISED PT TO PLEASE CALL IF NEEDED.
[2018-11-24 22:19] VITALS: BP 153/72
[2018-11-24] MEDS: INSULIN LANTUS (GLARGINE) 1 /0.01ml (100units/ml) SC SCH (22:41)
[2018-11-25 05:17] VITALS: BP 164/79
[2018-11-25] MEDS: BUMETANIDE (0.25 MG/ML) INJ 10ML IV SCH ×2 (05:25→18:06)
[2018-11-25] MEDS: SALINE 0.65 % NASAL SPRAY 45ML BOTTLE EACHNOSTRI SCH ×4 (05:25→21:44)
[2018-11-25] MEDS: PIPERACILLIN-TAZOB 2.25GM 50 ML IV SCH ×3 (05:26→21:44)
[2018-11-25] MEDS: InsuLIN REG 1unit/0.01ml Soln (100units/ml) SC SCH ×4 (06:38→21:39)
[2018-11-25] MEDS: ACCU-CHEK COMFORT CURVE STRIP VI SCH ×4 (06:38→21:45)
--- NOTE | 2018-11-25 07:30 | NUR ---
Opening Shift Note Assumed care of patient, awake, alert, and oriented x4. No S/S of distress/SOB or pain. Midline in left upper arm asymptomatic, intact, patent, and saline locked. Oconnell catheter patent and draining clear yellow urine to gravity. Bed locked and in lowest position and call light is within reach. Instructed on POC and to call for assist PRN, and patient verbalized understanding. Will continue to monitor for changes Q1hr and PRN.
[2018-11-25] MEDS: Glucerna Carbsteady SHAKE Vanilla 8oz PO SCH ×2 (08:00→18:06)
[2018-11-25 09:00] VITALS: BP 162/69
[2018-11-25] MEDS: FLUTICASONE PROP NASAL SPR 0.05 % (50MCG) 16GM EACHNOSTRI SCH ×2 (10:00→21:44)
[2018-11-25] MEDS: CLOTRIMAZOLE 1 % CREAM 15GM TOP SCH ×2 (10:00→21:45)
[2018-11-25] MEDS: PANTOPRAZOLE 40 MG TAB PO SCH (10:38)
[2018-11-25] MEDS: POTASSIUM CHL 20 Meq TABLET PO SCH (10:38)
[2018-11-25] MEDS: NIFEdipine ER 30 MG TAB PO SCH (10:39)
[2018-11-25] MEDS: PARoxetine 20 MG TAB PO SCH (10:40)
[2018-11-25] MEDS: CHOLECALCIFEROL (VITD3) 1,000 UNIT TAB PO SCH (10:40)
[2018-11-25] MEDS: METOLAZONE 5 MG TAB PO SCH (10:41)
[2018-11-25] MEDS: METOPROLOL TARTRATE 50 MG TAB PO SCH ×2 (10:41→21:40)
[2018-11-25 13:00] VITALS: BP 171/65
[2018-11-25 17:00] VITALS: BP 163/71
--- NOTE | 2018-11-25 20:20 | NUR ---
Assumed care of patient from Emile RN, pt is awake and alert and oriented x4. No S/S of distress/SOB or pain. Pt on 4L Oxymizer, respirations even equal and unlabored. Pt sitting in chair at bedside. Family at bedside. Instructed on POC and to call for assist PRN, will continue to monitor for changes Q1hr and PRN.
--- NOTE | 2018-11-25 21:44 | NUR ---
Respiratory note: PT ASSESSED FOR PRN MED NEB TX. HR 61, RR 14, SPO2 96% ON 4L OXYMIZER. NO SIGNS OF ANY RESPIRATORY DISTRESS NOTED. ADVISED PT TO PLEASE CALL IF NEEDED.
[2018-11-25] MEDS: INSULIN LANTUS (GLARGINE) 1 /0.01ml (100units/ml) SC SCH (21:45)
[2018-11-25 21:55] VITALS: BP 158/69
[2018-11-25] MEDS: cloNIDine HCL 0.1 MG TAB PO PRN (22:42)
[2018-11-25] MEDS: hydrALAZINE HCL 20 MG/ML VL IV PRN (23:58)
--- NOTE | 2018-11-25 23:58 | NUR ---
BLOOD PRESSURE Patient's blood pressure is 185/74 after administration of Lopressor and clonidine. Given hydralazine IV PRN as ordered. Will continue to monitor.
--- NOTE | 2018-11-26 00:31 | NUR ---
MIDLINE DRESSING CHANGED MIDLINE DRESSING CHANGED USING STERILE TECHNIQUE
[2018-11-26] MEDS: PROMETHAZINE HCL 25 MG/ML 1ML IV PRN (02:50)
[2018-11-26 05:28] VITALS: BP 170/66
[2018-11-26] MEDS: SALINE 0.65 % NASAL SPRAY 45ML BOTTLE EACHNOSTRI SCH ×2 (05:31→12:00)
[2018-11-26] MEDS: PIPERACILLIN-TAZOB 2.25GM 50 ML IV SCH (05:33)
[2018-11-26] MEDS: BUMETANIDE (0.25 MG/ML) INJ 10ML IV SCH (05:33)
[2018-11-26] MEDS: IPRATROPIUM BROM 0.5 MG/2.5ML INH SOL NEB PRN (06:30)
[2018-11-26] MEDS: ALBUTEROL SULF 2.5 MG/0.5ML(0.5%) NEB SOLN NEB PRN (06:31)
[2018-11-26] MEDS: InsuLIN REG 1unit/0.01ml Soln (100units/ml) SC SCH ×2 (06:38→11:30)
[2018-11-26] MEDS: ACCU-CHEK COMFORT CURVE STRIP VI SCH ×2 (06:39→11:30)
[2018-11-26 07:21] LABS: Albumin 1.9 g/dL (3.4-5.0); BUN/Creatinine Ratio 10.6; Calcium 7.9 mg/dL (8.5-10.1); Potassium 3.6 mmol/L (3.5-5.1)
--- NOTE | 2018-11-26 07:30 | NUR ---
Opening Shift Note Assumed care of patient, awake, alert, and oriented x4. No S/S of distress/SOB or pain. Midline in left upper arm asymptomatic, intact, patent, and saline locked. Oconnell catheter patent and draining clear gold yellow urine to gravity. Bed locked and in lowest position and call light is within reach. Instructed on POC and to call for assist PRN, and patient verbalized understanding. Will continue to monitor for changes Q1hr and PRN.
[2018-11-26] MEDS: Glucerna Carbsteady SHAKE Vanilla 8oz PO SCH (08:00)
[2018-11-26 08:07] LABS: Bilirubin, Total 0.3 mg/dL (0.2-1.0); Total Protein 5.8 g/dL (6.4-8.2)
[2018-11-26 08:32] LABS: Phosphorus 4.4 mg/dL (2.5-4.90); Uric Acid 6.1 mg/dL (2.6-6.0)
[2018-11-26 09:00] VITALS: BP 142/53
--- NOTE | 2018-11-26 09:55 | NUR ---
DR. SCHMITZ AT BEDSIDE. NEW ORDERS RECEIVED.
[2018-11-26] MEDS: CLOTRIMAZOLE 1 % CREAM 15GM TOP SCH (10:00)
[2018-11-26] MEDS ORDERED: POTASSIUM CHL 20 Meq TABLET PO ONE (10:00)
[2018-11-26] MEDS: FLUTICASONE PROP NASAL SPR 0.05 % (50MCG) 16GM EACHNOSTRI SCH (10:00)
--- NOTE | 2018-11-26 10:00 | NUR ---
DR. MAZARIEGOS AT BEDSIDE. NEW ORDERS RECEIVED.
[2018-11-26] MEDS: PANTOPRAZOLE 40 MG TAB PO SCH (11:11)
[2018-11-26] MEDS: METOPROLOL TARTRATE 50 MG TAB PO SCH (11:12)
[2018-11-26] MEDS: CHOLECALCIFEROL (VITD3) 1,000 UNIT TAB PO SCH (11:12)
[2018-11-26] MEDS: METOLAZONE 5 MG TAB PO SCH (11:12)
[2018-11-26] MEDS: POTASSIUM CHL 20 Meq TABLET PO SCH (11:14)
[2018-11-26] MEDS: PARoxetine 20 MG TAB PO SCH (11:14)
[2018-11-26] MEDS: NIFEdipine ER 30 MG TAB PO SCH (11:14)
--- NOTE | 2018-11-26 11:38 | NUR ---
HD TOMORROW, PT WILL HAVE HD AT [facility] [place] . SHE WILL NEED TO BE THERE AT 1330 HRS
[2018-11-26 12:54] VITALS: BP 150/56
[2018-11-26 13:00] VITALS: BP 150/56
--- NOTE | 2018-11-26 14:20 | NUR ---
Discharge instructions given as ordered. Encourage to follow up with PMD as instructed. All questions and concerns addressed. Patient verbalized understanding. Medication reconciliation form completed and copy given to patient. IV removed with catheter intact, pressure dressing applied, douglas catheter removed. Telemetry unit returned to [facility]. Patient taken to vehicle via wheelchair with all personal belongings, accompanied by staff and family member. No distress noted at time of departure.
[2018-11-27] MEDS ORDERED: SODIUM CHL 0.9% 1000 ML BAG XX ONE (07:00)
--- NOTE | 2018-11-27 08:54 | NUR ---
DAUGHTER CALLED TO INQUIRE ABOUT HD PT WAS UNDER THE IMPRESSION THAT SHE NEEDED TO RETURN [place]" TO COMPLETE HER DIALYSIS AND CALLED HER DAUGHTER TO CONFIRM. DAUGHTER WAS NOT SURE AND CALLED TO QUESTION. GAVE INFORMATION: [facility] [id number] [facility] [id number] AT 1:30 TODAY DAUGHTER VERBALIZED UNDERSTANDING AND WILL FACILITATE MOTHERS TRIP TO CENTER
[2018-11-27] MEDS ORDERED: EPOETIN ALFA 10,000 UNIT/1 ML VIAL SC ONE (21:00)
== END 2018-11-26 14:00 | disposition home or self-care (01) | DRG 469 ==
LOC: ER 06:27 → OVERFLOW 10:36 → TELE-EAST 10-20 19:55 → EAST 10-30 21:20 → TELE-EAST 11-01 20:46
PROVIDERS: ADMIT Internal Medicine; ATTEND Internal Medicine
PROC: 0W993ZZ Drainage of Right Pleural Cavity, Percutaneous Approach (ICD-10-PCS; 2018-11-01)
PROC: 0W993ZZ Drainage of Right Pleural Cavity, Percutaneous Approach (ICD-10-PCS; 2018-11-07)
PROC: 5A1D70Z Performance of Urinary Filtration, Intermittent, Less than 6 Hours Per Day (ICD-10-PCS; 2018-11-13)
PROC: 0HBRXZZ Excision of Toe Nail, External Approach (ICD-10-PCS; principal; 2018-11-14)
PROC: 0HBRXZZ Excision of Toe Nail, External Approach (ICD-10-PCS; 2018-11-14)
PROC: 0HBRXZZ Excision of Toe Nail, External Approach (ICD-10-PCS; 2018-11-14)
PROC: 0HBRXZZ Excision of Toe Nail, External Approach (ICD-10-PCS; 2018-11-14)
PROC: 0HBRXZZ Excision of Toe Nail, External Approach (ICD-10-PCS; 2018-11-14)
PROC: 0HBRXZZ Excision of Toe Nail, External Approach (ICD-10-PCS; 2018-11-14)
PROC: 0JH63XZ Insertion of Tunneled Vascular Access Device into Chest Subcutaneous Tissue and Fascia, Percutaneous Approach (ICD-10-PCS; 2018-11-14)
PROC: 02HV33Z Insertion of Infusion Device into Superior Vena Cava, Percutaneous Approach (ICD-10-PCS; 2018-11-14)
PROC: B5181ZA Fluoroscopy of Superior Vena Cava using Low Osmolar Contrast, Guidance (ICD-10-PCS; 2018-11-14)
PROC: B548ZZA Ultrasonography of Superior Vena Cava, Guidance (ICD-10-PCS; 2018-11-14)
PROC: 5A1D70Z Performance of Urinary Filtration, Intermittent, Less than 6 Hours Per Day (ICD-10-PCS; 2018-11-15)
PROC: 5A1D70Z Performance of Urinary Filtration, Intermittent, Less than 6 Hours Per Day (ICD-10-PCS; 2018-11-23)
DX: N17.0 Acute kidney failure with tubular necrosis (principal); J96.21 Acute and chronic respiratory failure with hypoxia; E43 Unspecified severe protein-calorie malnutrition; I13.2 Hypertensive heart and chronic kidney disease with heart failure and with stage 5 chronic kidney disease, or end stage renal disease; E11.10 Type 2 diabetes mellitus with ketoacidosis without coma; J18.9 Pneumonia, unspecified organism; J91.8 Pleural effusion in other conditions classified elsewhere; G40.209 Localization-related (focal) (partial) symptomatic epilepsy and epileptic syndromes with complex partial seizures, not intractable, without status epilepticus; I50.33 Acute on chronic diastolic (congestive) heart failure; E11.21 Type 2 diabetes mellitus with diabetic nephropathy; E87.2 Acidosis; E11.22 Type 2 diabetes mellitus with diabetic chronic kidney disease; E11.65 Type 2 diabetes mellitus with hyperglycemia; D63.8 Anemia in other chronic diseases classified elsewhere; Z99.2 Dependence on renal dialysis; B35.1 Tinea unguium; B35.3 Tinea pedis; Z79.4 Long term (current) use of insulin; F32.9 Major depressive disorder, single episode, unspecified; F17.200 Nicotine dependence, unspecified, uncomplicated; F41.9 Anxiety disorder, unspecified; N18.6 End stage renal disease; Z68.22 Body mass index [BMI] 22.0-22.9, adult; N04.9 Nephrotic syndrome with unspecified morphologic changes; Z53.20 Procedure and treatment not carried out because of patient's decision for unspecified reasons; Z82.0 Family history of epilepsy and other diseases of the nervous system; Z83.3 Family history of diabetes mellitus; Z87.01 Personal history of pneumonia (recurrent); Z87.441 Personal history of nephrotic syndrome; Z88.5 Allergy status to narcotic agent; Z90.710 Acquired absence of both cervix and uterus; Z79.899 Other long term (current) drug therapy
CPT/HCPCS: 10022; 36415; 36600; 70450; 71045; 71046; 71250; 74176; 76000; 76604; 76705; 76937; 76942; 80048; 80053; 80074; 80076; 80307; 81001; 82010; 82140; 82150; 82306; 82550; 82570; 82607; 82728; 82784; 82805; 82962; 83036; 83540; 83550; 83605; 83690; 83735; 83880; 83883; 83970; 83986; 84100; 84132; 84146; 84156; 84300; 84550; 85007; 85025; 85027; 85610; 85652; 86334; 86850; 86900; 86901; 87040; 87070; 87081; 87205; 87493; 89051; 90935; 93926; 94640; 95819; 96361; 96365; 96375; 97110; 97116; 97163; 97530; 99152; A6257; G0378; J0690; J0696; J0885; J1642; J1815; J1956; J2250; J2543; J3480; J3490; P9047

== ENCOUNTER 2018-12-05 14:42 | Inpatient (IN) | payer SELFPAY ==
[~2018-12-05] VITALS: Ht 160 cm; Wt 64.0 kg
[~2018-12-05 14:42] MED LIST changes: +GABA300C PO
[2018-12-05 15:44] LABS: Basophils # (auto) 0 uL; Eosinophils # (auto) 0 uL
[2018-12-05 15:46] LABS: Basophils % (auto) 0.4 % (0.0-2.0); Eosinophils % (auto) 0.1 % (0.0-7.0); Hematocrit 31.9 % (36.0-46.0); Hemoglobin 8.2 g/dL (12.2-16.2); Lymphocytes # (auto) 0.2 uL; Lymphocytes % (auto) 4.9 % (10.0-50.0); Mean Corpuscular Hemoglobin 31.6 pg (28.0-32.0); Mean Corpuscular Hgb Conc. 25.9 g/dL (32.0-36.0); Mean Corpuscular Volume 122.3 fL (80.0-100.0); Monocytes # (auto) 0.3 uL; Monocytes % (auto) 5.5 % (0.0-12.0); Neutrophils # (auto) 4.3 uL; Neutrophils % (auto) 89.1 % (37.0-80.0); Nucleated Red Blood Cells % 0.1 %; Platelet Count (auto) 196 10^3/uL (140-450); Red Blood Cells 2.61 10^6/uL (4.0-5.20); Red Cell Distribution Width 17.8 % (11.8-14.3); White Blood Cell 4.8 10^3/uL (4.4-10.8)
[2018-12-05 15:57] LABS: Albumin 2.6 g/dL (3.4-5.0); Magnesium 2.6 mg/dL (1.6-2.6)
[2018-12-05 16:07] LABS: BUN/Creatinine Ratio 17.1; Bilirubin, Total 0.4 mg/dL (0.2-1.0); Calcium 8.1 mg/dL (8.5-10.1); Total Protein 6.7 g/dL (6.4-8.2)
[2018-12-05] MEDS ORDERED: SODIUM CHLORIDE 0.9% 3,000 ML IV ONE (16:45)
[2018-12-05] MEDS ORDERED: SODIUM CHLORIDE 0.9% 1,000 ML IVB ONE (17:13)
[2018-12-05] MEDS ORDERED: InsuLIN R (HUMAN) 100 UNITS in SODIUM CHL 0.9% 99 ML IV SCH ×20 (17:13→20:30)
[2018-12-05] MEDS ORDERED: SODIUM CHLORIDE 0.9% 1,000 ML IV SCH ×3 (17:13→23:13)
[2018-12-05] MEDS ORDERED: DEXTROSE (50%) 50ML SYRG IV PRN ×3 (17:15→20:00)
[2018-12-05] MEDS ORDERED: InsuLIN REG 1unit/0.01ml Soln (100units/ml) IV ONE ×2 (17:15→20:00)
[2018-12-05] MEDS ORDERED: SODIUM BICARBONATE 8.4 % INJ 50ML VIAL IV ONE (17:15)
[2018-12-05] MEDS ORDERED: ACCU-CHEK COMFORT CURVE STRIP VI SCH (18:00)
[2018-12-05] MEDS ORDERED: NITROGLYCERIN 0.4 MG SL TAB SL PRN (18:15)
[2018-12-05] MEDS ORDERED: MORPHINE SULFATE 4 MG/ML SYR/VIAL IV PRN (18:15)
[2018-12-05] MEDS ORDERED: cefTRIAXone 1GM/50ML D5W 50 ML IV ONE (18:30)
[2018-12-05 19:00] LABS: BUN/Creatinine Ratio 17.3
[2018-12-05] MEDS: SODIUM BICARBONATE 50ML VIAL 50 ML in SOD CHL 0.45% 1,000 ML IV SCH (19:35)
[2018-12-05 19:39] LABS: Alcohol, Urine < 3.0 mg/dL (0-5); Amphetamine Screen, Urine NEGATIVE (NEGATIVE); Barbiturate Scree,Urine NEGATIVE (NEGATIVE); Benzodiazephine Screen, Urine NEGATIVE (NEGATIVE); Cannabinoid Screen, Urine NEGATIVE (NEGATIVE); Cocaine Screen, Urine NEGATIVE (NEGATIVE); Opiate Scree,Urine NEGATIVE (NEGATIVE); Phencyclidine Screen, Urine NEGATIVE (NEGATIVE)
[2018-12-05] MEDS: ACCU-CHEK COMFORT CURVE STRIP VI SCH ×3 (19:54→22:05)
[2018-12-05] MEDS ORDERED: POTASSIUM CHL 20MEQ/100ML 200 ML IV PRN (20:00)
[2018-12-05] MEDS ORDERED: POTASSIUM CHL 10MEQ/100ML 300 ML IV PRN (20:00)
[2018-12-05] MEDS ORDERED: POTASSIUM CHL 20MEQ/100ML 100 ML IV PRN (20:00)
[2018-12-05 20:02] LABS: INR 1.04 (0.9-1.15); Partial Thromboplastin Time 36.1 sec (23.78-33.04); Prothrombin Time 11.1 sec (9.27-12.13)
[2018-12-05 20:25] LABS: Urine Bacteria FEW /hpf (None Seen); Urine Blood 1+ /uL (Negative); Urine Specific Gravity 1.017 (1.001-1.035); Urine WBC 1 /hpf (0 - 5)
[2018-12-05 22:25] LABS: Eosinophils # (auto) 0 uL; Hematocrit 24.9 % (36.0-46.0); Lymphocytes # (auto) 0.2 uL; Monocytes # (auto) 0.1 uL
[2018-12-05 22:27] LABS: Basophils # (auto) 0 uL; Basophils % (auto) 0.7 % (0.0-2.0); Hemoglobin 7.2 g/dL (12.2-16.2); Lymphocytes % (auto) 3.5 % (10.0-50.0); Mean Corpuscular Hemoglobin 31.3 pg (28.0-32.0); Mean Corpuscular Hgb Conc. 29.1 g/dL (32.0-36.0); Mean Corpuscular Volume 107.5 fL (80.0-100.0); Monocytes % (auto) 1.4 % (0.0-12.0); Neutrophils # (auto) 5.4 uL; Neutrophils % (auto) 94.4 % (37.0-80.0); Platelet Count (auto) 122 10^3/uL (140-450); Red Blood Cells 2.32 10^6/uL (4.0-5.20); Red Cell Distribution Width 17.4 % (11.8-14.3); White Blood Cell 5.7 10^3/uL (4.4-10.8)
[2018-12-05 22:39] LABS: Calcium 7.5 mg/dL (8.5-10.1)
[2018-12-05 22:48] LABS: BUN/Creatinine Ratio 17.3; Phosphorus 5.9 mg/dL (2.5-4.90)
[2018-12-06] VITALS (69 sets, daily range): BP systolic 131–194; BP diastolic 47–111
[2018-12-06] MEDS: ACCU-CHEK COMFORT CURVE STRIP VI SCH ×11 (01:30→20:00)
[2018-12-06] MEDS ORDERED: SODIUM CHLORIDE 0.9% 1,000 ML IV SCH ×2 (01:57→14:30)
[2018-12-06] MEDS: SODIUM BICARBONATE 50ML VIAL 50 ML in SOD CHL 0.45% 1,000 ML IV SCH (02:00)
[2018-12-06 03:42] LABS: INR 1.07 (0.9-1.15); Prothrombin Time 11.4 sec (9.27-12.13)
[2018-12-06 03:45] LABS: BUN/Creatinine Ratio 16.6; Calcium 7.5 mg/dL (8.5-10.1)
[2018-12-06 03:51] LABS: Potassium 2.6 mmol/L (3.5-5.1)
[2018-12-06] MEDS ORDERED: POTASSIUM CHL 10MEQ/100ML 100 ML IV PRN (04:00)
[2018-12-06] MEDS ORDERED: InsuLIN R (HUMAN) 100 UNITS in SODIUM CHL 0.9% 99 ML IV SCH (04:17)
[2018-12-06] MEDS ORDERED: POTASSIUM CHLORIDE 40 MEQ, LIDOCAINE 1% (LOCAL ANESTH.) 4 ML in SODIUM CHL 0.9% 100 ML IV ONE (04:30)
[2018-12-06] MEDS ORDERED: POTASSIUM CHL 20MEQ/100ML 100 ML IV ONE ×2 (04:33→06:41)
[2018-12-06] MEDS ORDERED: SOD CHL 0.45% 1,000 ML IV SCH (05:00)
[2018-12-06] MEDS: PROMETHAZINE HCL 25 MG/ML 1ML IV PRN ×2 (05:26→21:09)
[2018-12-06] MEDS: PANTOPRAZOLE 40 MG/10 ML VIAL IV SCH (10:08)
[2018-12-06] MEDS: ENOXAPARIN SOD 40 MG/0.4 ML SYRINGE SC SCH (10:09)
[2018-12-06 11:34] LABS: Calcium 7.7 mg/dL (8.5-10.1)
[2018-12-06 11:36] LABS: BUN/Creatinine Ratio 17.9
[2018-12-06 11:41] LABS: Potassium 2.7 mmol/L (3.5-5.1)
[2018-12-06] MEDS ORDERED: POTASSIUM EFFERVESENT TAB 25 MEQ GT ONE (12:00)
[2018-12-06] MEDS: POTASSIUM CHL 20MEQ/100ML 100 ML IV SCH ×2 (12:32→14:00)
[2018-12-06] MEDS ORDERED: FUROSEMIDE 20 MG/2 ML VIAL IV ONE (13:00)
[2018-12-06] MEDS ORDERED: INSULIN LANTUS (GLARGINE) 1 /0.01ml (100units/ml) SC ONE (13:30)
[2018-12-06] MEDS ORDERED: ACCU-CHEK COMFORT CURVE STRIP VI SCH (14:00)
[2018-12-06 14:22] LABS: Magnesium 1.5 mg/dL (1.6-2.6)
[2018-12-06] MEDS ORDERED: DEXTROSE (50%) 50ML SYRG IV PRN (14:30)
[2018-12-06] MEDS ORDERED: ENOXAPARIN SOD 60 MG/0.6 ML SYRINGE SC ONE (14:45)
[2018-12-06 15:40] LABS: BUN/Creatinine Ratio 17.7; Calcium 7.8 mg/dL (8.5-10.1); Potassium 3.3 mmol/L (3.5-5.1)
[2018-12-06 15:45] LABS: Basophils # (auto) 0 uL; Basophils % (auto) 0.3 % (0.0-2.0); Eosinophils # (auto) 0 uL; Hematocrit 26.3 % (36.0-46.0); Hemoglobin 8.8 g/dL (12.2-16.2); Lymphocytes # (auto) 1.1 uL; Lymphocytes % (auto) 11.8 % (10.0-50.0); Mean Corpuscular Hemoglobin 31.5 pg (28.0-32.0); Mean Corpuscular Hgb Conc. 33.4 g/dL (32.0-36.0); Mean Corpuscular Volume 94.3 fL (80.0-100.0); Monocytes # (auto) 0.9 uL; Monocytes % (auto) 9.5 % (0.0-12.0); Neutrophils # (auto) 7.4 uL; Neutrophils % (auto) 78.4 % (37.0-80.0); Platelet Count (auto) 159 10^3/uL (140-450); Red Blood Cells 2.79 10^6/uL (4.0-5.20); Red Cell Distribution Width 16.9 % (11.8-14.3); White Blood Cell 9.4 10^3/uL (4.4-10.8)
[2018-12-06] MEDS: InsuLIN REG 1unit/0.01ml Soln (100units/ml) SC SCH ×2 (16:00→20:00)
[2018-12-06] MEDS: hydrALAZINE HCL 20 MG/ML VL IV PRN (18:07)
[2018-12-06] MEDS ORDERED: traMADol HCL 50 MG TAB PO ONE (21:45)
[2018-12-06] MEDS ORDERED: POTASSIUM CHL 20 Meq TABLET PO ONE (22:15)
[2018-12-07] VITALS (81 sets, daily range): BP systolic 104–213; BP diastolic 52–113
[2018-12-07] MEDS: hydrALAZINE HCL 20 MG/ML VL IV PRN ×3 (00:38→23:30)
[2018-12-07] MEDS: InsuLIN REG 1unit/0.01ml Soln (100units/ml) SC SCH ×7 (04:00→23:30)
[2018-12-07 04:04] LABS: Basophils # (auto) 0 uL; Basophils % (auto) 0.2 % (0.0-2.0); Eosinophils # (auto) 0 uL; Eosinophils % (auto) 0.1 % (0.0-7.0); Hematocrit 25.6 % (36.0-46.0); Lymphocytes # (auto) 1.1 uL; Mean Corpuscular Hemoglobin 32.9 pg (28.0-32.0); Mean Corpuscular Hgb Conc. 35.1 g/dL (32.0-36.0); Mean Corpuscular Volume 93.9 fL (80.0-100.0); Monocytes # (auto) 0.6 uL; Neutrophils # (auto) 5.3 uL; Neutrophils % (auto) 75.7 % (37.0-80.0); Platelet Count (auto) 148 10^3/uL (140-450); Red Blood Cells 2.72 10^6/uL (4.0-5.20)
[2018-12-07 04:12] LABS: Calcium 7.6 mg/dL (8.5-10.1); Magnesium 1.6 mg/dL (1.6-2.6); Potassium 3.3 mmol/L (3.5-5.1)
[2018-12-07 04:15] LABS: BUN/Creatinine Ratio 18.3
[2018-12-07] MEDS: ACCU-CHEK COMFORT CURVE STRIP VI SCH ×7 (04:16→23:30)
[2018-12-07] MEDS: INSULIN LANTUS (GLARGINE) 1 /0.01ml (100units/ml) SC SCH (06:26)
[2018-12-07] MEDS ORDERED: SODIUM CHL 0.9% 1000 ML BAG XX ONE (07:00)
[2018-12-07 07:54] LABS: % Iron Saturation 46.4 % (15-50)
[2018-12-07] MEDS: PROMETHAZINE HCL 25 MG/ML 1ML IV PRN (08:00)
[2018-12-07] MEDS: ENOXAPARIN SOD 40 MG/0.4 ML SYRINGE SC SCH (10:00)
[2018-12-07] MEDS: PANTOPRAZOLE 40 MG/10 ML VIAL IV SCH (10:26)
[2018-12-07] MEDS ORDERED: FUROSEMIDE 20 MG TAB PO ONE (10:30)
[2018-12-07] MEDS: cloNIDine HCL 0.1 MG TAB PO PRN (12:40)
[2018-12-07] MEDS ORDERED: FUROSEMIDE INJECTION 250 MG in D5W 5% 225 ML IV SCH (14:15)
[2018-12-07] MEDS ORDERED: FUROSEMIDE 40 MG/4 ML VIAL IV ONE (14:15)
[2018-12-07] MEDS: LACTATED RINGER'S 1,000 ML IV SCH (18:15)
[2018-12-07] MEDS: METOPROLOL TARTRATE 50 MG TAB PO SCH (20:59)
[2018-12-07] MEDS ORDERED: EPOETIN ALFA 10,000 UNIT/1 ML VIAL SC ONE (21:00)
[2018-12-07] MEDS ORDERED: HEPARIN SODIUM (PORCINE) 5000 UNITS/ML 1ML VIAL SC SCH (22:00)
[2018-12-08] VITALS (20 sets, daily range): BP systolic 136–183; BP diastolic 53–109
[2018-12-08 03:50] LABS: Basophils # (auto) 0 uL; Hemoglobin 7.9 g/dL (12.2-16.2)
[2018-12-08 03:53] LABS: Basophils % (auto) 1.3 % (0.0-2.0); Eosinophils # (auto) 0.1 uL; Eosinophils % (auto) 1.5 % (0.0-7.0); Hematocrit 23.4 % (36.0-46.0); Lymphocytes % (auto) 28.5 % (10.0-50.0); Mean Corpuscular Hgb Conc. 33.8 g/dL (32.0-36.0); Mean Corpuscular Volume 94.7 fL (80.0-100.0); Monocytes # (auto) 0.4 uL; Monocytes % (auto) 12.2 % (0.0-12.0); Neutrophils % (auto) 56.5 % (37.0-80.0); Nucleated Red Blood Cells % 0.1 %; Platelet Count (auto) 88 10^3/uL (140-450); Red Blood Cells 2.47 10^6/uL (4.0-5.20); Red Cell Distribution Width 17.4 % (11.8-14.3); White Blood Cell 3.6 10^3/uL (4.4-10.8)
[2018-12-08] MEDS: InsuLIN REG 1unit/0.01ml Soln (100units/ml) SC SCH ×5 (03:55→20:00)
[2018-12-08] MEDS: ACCU-CHEK COMFORT CURVE STRIP VI SCH ×5 (03:56→20:00)
[2018-12-08 04:06] LABS: Potassium 3.5 mmol/L (3.5-5.1)
[2018-12-08 04:09] LABS: BUN/Creatinine Ratio 15.5
[2018-12-08] MEDS: hydrALAZINE HCL 20 MG/ML VL IV PRN (06:30)
[2018-12-08] MEDS: LACTATED RINGER'S 1,000 ML IV SCH (06:42)
[2018-12-08] MEDS: INSULIN LANTUS (GLARGINE) 1 /0.01ml (100units/ml) SC SCH ×2 (07:00→12:00)
[2018-12-08] MEDS: PANTOPRAZOLE 40 MG/10 ML VIAL IV SCH (11:08)
[2018-12-08] MEDS: METOPROLOL TARTRATE 50 MG TAB PO SCH ×2 (11:14→22:23)
[2018-12-08] MEDS: LOSARTAN POTASSIUM 50 MG TAB PO SCH (11:14)
[2018-12-08] MEDS ORDERED: FUROSEMIDE 20 MG TAB ONE (11:17)
[2018-12-08] MEDS: FUROSEMIDE 20 MG TAB PO SCH (11:18)
[2018-12-08] MEDS: cloNIDine HCL 0.1 MG TAB PO PRN (18:54)
[2018-12-09 00:24] VITALS: BP 152/77
[2018-12-09 04:00] VITALS: BP 175/65
[2018-12-09] MEDS: InsuLIN REG 1unit/0.01ml Soln (100units/ml) SC SCH ×7 (04:00→23:35)
[2018-12-09] MEDS: ACCU-CHEK COMFORT CURVE STRIP VI SCH ×7 (04:17→23:35)
[2018-12-09] MEDS: cloNIDine HCL 0.1 MG TAB PO PRN (04:21)
[2018-12-09 05:31] LABS: Basophils # (auto) 0 uL; Eosinophils # (auto) 0.1 uL; Hemoglobin 8.2 g/dL (12.2-16.2); Lymphocytes # (auto) 1.4 uL; Lymphocytes % (auto) 37.8 % (10.0-50.0); Monocytes # (auto) 0.5 uL
[2018-12-09 05:36] LABS: Basophils % (auto) 0.3 % (0.0-2.0); Hematocrit 24.5 % (36.0-46.0); Mean Corpuscular Hemoglobin 32.1 pg (28.0-32.0); Mean Corpuscular Hgb Conc. 33.5 g/dL (32.0-36.0); Mean Corpuscular Volume 95.6 fL (80.0-100.0); Monocytes % (auto) 14.6 % (0.0-12.0); Neutrophils # (auto) 1.6 uL; Neutrophils % (auto) 44.3 % (37.0-80.0); Platelet Count (auto) 82 10^3/uL (140-450); Red Blood Cells 2.56 10^6/uL (4.0-5.20); Red Cell Distribution Width 17.7 % (11.8-14.3); White Blood Cell 3.6 10^3/uL (4.4-10.8)
[2018-12-09 05:44] LABS: INR 0.94 (0.9-1.15); Partial Thromboplastin Time 26.4 sec (23.78-33.04); Prothrombin Time 10.1 sec (9.27-12.13)
[2018-12-09 05:49] LABS: Calcium 7.4 mg/dL (8.5-10.1); Potassium 3.5 mmol/L (3.5-5.1)
[2018-12-09 05:51] LABS: BUN/Creatinine Ratio 15.3; Bilirubin, Total 0.3 mg/dL (0.2-1.0); Total Protein 5.2 g/dL (6.4-8.2)
[2018-12-09] MEDS: INSULIN LANTUS (GLARGINE) 1 /0.01ml (100units/ml) SC SCH ×2 (07:00→07:11)
[2018-12-09] MEDS: hydrALAZINE HCL 20 MG/ML VL IV PRN (07:09)
[2018-12-09 08:00] VITALS: BP 145/59
[2018-12-09] MEDS: PANTOPRAZOLE 40 MG/10 ML VIAL IV SCH (09:50)
[2018-12-09] MEDS: METOPROLOL TARTRATE 50 MG TAB PO SCH ×2 (09:51→20:05)
[2018-12-09] MEDS: FUROSEMIDE 20 MG TAB PO SCH (09:52)
[2018-12-09] MEDS: LOSARTAN POTASSIUM 50 MG TAB PO SCH (11:54)
[2018-12-09 12:00] VITALS: BP 122/54
[2018-12-09 16:00] VITALS: BP 138/63
[2018-12-09 19:59] VITALS: BP 178/76
[2018-12-10 01:00] VITALS: BP 163/59
[2018-12-10] MEDS: InsuLIN REG 1unit/0.01ml Soln (100units/ml) SC SCH ×5 (04:00→20:25)
[2018-12-10] MEDS: ACCU-CHEK COMFORT CURVE STRIP VI SCH ×6 (04:00→23:54)
[2018-12-10] MEDS: hydrALAZINE HCL 20 MG/ML VL IV PRN (05:17)
[2018-12-10 05:31] LABS: Basophils # (auto) 0 uL; Basophils % (auto) 0.4 % (0.0-2.0); Eosinophils # (auto) 0.1 uL; Monocytes # (auto) 0.5 uL; White Blood Cell 3.6 10^3/uL (4.4-10.8)
[2018-12-10 05:34] LABS: Eosinophils % (auto) 2.6 % (0.0-7.0); Hematocrit 25.5 % (36.0-46.0); Hemoglobin 8.3 g/dL (12.2-16.2); Mean Corpuscular Hemoglobin 31.4 pg (28.0-32.0); Mean Corpuscular Hgb Conc. 32.7 g/dL (32.0-36.0); Mean Corpuscular Volume 96.2 fL (80.0-100.0); Monocytes % (auto) 15.1 % (0.0-12.0); Neutrophils % (auto) 54.9 % (37.0-80.0); Nucleated Red Blood Cells % 0.1 %; Platelet Count (auto) 104 10^3/uL (140-450); Red Blood Cells 2.65 10^6/uL (4.0-5.20); Red Cell Distribution Width 17.5 % (11.8-14.3)
[2018-12-10 05:58] LABS: Albumin 2.1 g/dL (3.4-5.0); Calcium 7.5 mg/dL (8.5-10.1); Potassium 3.5 mmol/L (3.5-5.1)
[2018-12-10 06:03] LABS: BUN/Creatinine Ratio 14.7; Bilirubin, Total 0.2 mg/dL (0.2-1.0); Total Protein 5.4 g/dL (6.4-8.2)
[2018-12-10 06:20] LABS: INR 0.96 (0.9-1.15); Partial Thromboplastin Time 26.4 sec (23.78-33.04); Prothrombin Time 10.3 sec (9.27-12.13)
[2018-12-10] MEDS: INSULIN LANTUS (GLARGINE) 1 /0.01ml (100units/ml) SC SCH (07:00)
[2018-12-10 08:00] VITALS: BP 173/79
[2018-12-10] MEDS: cloNIDine HCL 0.1 MG TAB PO PRN ×2 (08:16→22:36)
[2018-12-10] MEDS: PANTOPRAZOLE 40 MG/10 ML VIAL IV SCH (09:39)
[2018-12-10] MEDS: METOPROLOL TARTRATE 50 MG TAB PO SCH ×2 (09:39→21:21)
[2018-12-10] MEDS: LOSARTAN POTASSIUM 50 MG TAB PO SCH (09:39)
[2018-12-10] MEDS: FUROSEMIDE 20 MG TAB PO SCH (09:39)
[2018-12-10] MEDS ORDERED: IODIXANOL 320MG/ML 100ML BTL IV ONE ×2 (11:50→12:05)
[2018-12-10] MEDS ORDERED: LIDOCAINE 2%HCL (LOCAL ANESTH.) INJ 20ML MDV ONE (11:51)
[2018-12-10] MEDS ORDERED: SODIUM CHL 0.9% 0 ML ONE (11:54)
[2018-12-10] MEDS ORDERED: ANGIOMAX 250 MG VIAL IV ONE (11:54)
[2018-12-10] MEDS ORDERED: MIDAZOLAM HCL 1MG/1ML-2 ML VIAL ONE (11:54)
[2018-12-10] MEDS ORDERED: fentaNYL CITRATE 100 MCG/2 ML VL ONE (11:54)
[2018-12-10 16:00] VITALS: BP 170/75
[2018-12-10 19:50] VITALS: BP 142/65
[2018-12-11] VITALS (7 sets, daily range): BP systolic 154–175; BP diastolic 58–71
[2018-12-11] MEDS: hydrALAZINE HCL 20 MG/ML VL IV PRN ×2 (00:09→11:58)
[2018-12-11] MEDS: InsuLIN REG 1unit/0.01ml Soln (100units/ml) SC SCH ×6 (00:09→20:00)
[2018-12-11] MEDS: ACCU-CHEK COMFORT CURVE STRIP VI SCH ×5 (03:51→20:00)
[2018-12-11 05:23] LABS: Basophils # (auto) 0 uL; Eosinophils # (auto) 0.1 uL; Eosinophils % (auto) 2.9 % (0.0-7.0); Hemoglobin 7.8 g/dL (12.2-16.2); Lymphocytes % (auto) 33.4 % (10.0-50.0); Mean Corpuscular Volume 97.8 fL (80.0-100.0); Monocytes # (auto) 0.5 uL; Nucleated Red Blood Cells % 0.1 %; Red Cell Distribution Width 18.2 % (11.8-14.3)
[2018-12-11] MEDS: cloNIDine HCL 0.1 MG TAB PO PRN ×2 (05:24→15:57)
[2018-12-11 05:27] LABS: Basophils % (auto) 1.1 % (0.0-2.0); Hematocrit 23.8 % (36.0-46.0); Lymphocytes # (auto) 1.2 uL; Mean Corpuscular Hemoglobin 32.1 pg (28.0-32.0); Mean Corpuscular Hgb Conc. 32.8 g/dL (32.0-36.0); Neutrophils # (auto) 1.8 uL; Neutrophils % (auto) 48.6 % (37.0-80.0); Platelet Count (auto) 148 10^3/uL (140-450); Red Blood Cells 2.43 10^6/uL (4.0-5.20); White Blood Cell 3.7 10^3/uL (4.4-10.8)
[2018-12-11 05:29] LABS: Albumin 1.8 g/dL (3.4-5.0); BUN/Creatinine Ratio 12.3; Calcium 7.2 mg/dL (8.5-10.1); Potassium 4.7 mmol/L (3.5-5.1)
[2018-12-11 05:31] LABS: Bilirubin, Total 0.2 mg/dL (0.2-1.0); Total Protein 5.3 g/dL (6.4-8.2)
[2018-12-11] MEDS: INSULIN LANTUS (GLARGINE) 1 /0.01ml (100units/ml) SC SCH (07:15)
[2018-12-11] MEDS: PANTOPRAZOLE 40 MG/10 ML VIAL IV SCH (10:09)
[2018-12-11] MEDS: LOSARTAN POTASSIUM 50 MG TAB PO SCH (10:10)
[2018-12-11] MEDS: FUROSEMIDE 20 MG TAB PO SCH (10:11)
[2018-12-11] MEDS: METOPROLOL TARTRATE 50 MG TAB PO SCH ×2 (10:11→21:30)
[2018-12-11] MEDS: FLORASTOR (S. BOULARDII) 250 MG CAP PO SCH (21:28)
[2018-12-11] MEDS: traMADol HCL 50 MG TAB PO PRN (21:31)
[2018-12-12] MEDS: InsuLIN REG 1unit/0.01ml Soln (100units/ml) SC SCH ×6 (04:00→21:16)
[2018-12-12] MEDS: ACCU-CHEK COMFORT CURVE STRIP VI SCH ×6 (04:10→20:00)
[2018-12-12 04:28] LABS: Basophils # (auto) 0 uL; Basophils % (auto) 0.3 % (0.0-2.0); Lymphocytes # (auto) 1.8 uL
[2018-12-12 04:31] LABS: Eosinophils # (auto) 0.1 uL; Hemoglobin 7.9 g/dL (12.2-16.2); Lymphocytes % (auto) 39.9 % (10.0-50.0); Mean Corpuscular Hemoglobin 32.1 pg (28.0-32.0); Mean Corpuscular Hgb Conc. 33.1 g/dL (32.0-36.0); Monocytes # (auto) 0.5 uL; Neutrophils % (auto) 44.8 % (37.0-80.0); Platelet Count (auto) 135 10^3/uL (140-450); Red Blood Cells 2.47 10^6/uL (4.0-5.20); Red Cell Distribution Width 17.6 % (11.8-14.3); White Blood Cell 4.4 10^3/uL (4.4-10.8)
[2018-12-12 04:47] LABS: Albumin 2.1 g/dL (3.4-5.0); BUN/Creatinine Ratio 14.8; Calcium 7.7 mg/dL (8.5-10.1); Potassium 3.7 mmol/L (3.5-5.1)
[2018-12-12 04:49] LABS: Bilirubin, Total 0.2 mg/dL (0.2-1.0); Total Protein 5.3 g/dL (6.4-8.2)
[2018-12-12 04:58] VITALS: BP 176/68
[2018-12-12] MEDS: INSULIN LANTUS (GLARGINE) 1 /0.01ml (100units/ml) SC SCH (06:30)
[2018-12-12] MEDS: cloNIDine HCL 0.1 MG TAB PO PRN ×2 (06:31→12:46)
[2018-12-12] MEDS: LOSARTAN POTASSIUM 50 MG TAB PO SCH (07:43)
[2018-12-12] MEDS: METOPROLOL TARTRATE 50 MG TAB PO SCH ×2 (07:44→21:40)
[2018-12-12] MEDS: FUROSEMIDE 20 MG TAB PO SCH (07:44)
[2018-12-12] MEDS: FLORASTOR (S. BOULARDII) 250 MG CAP PO SCH ×2 (07:45→21:39)
[2018-12-12] MEDS: PANTOPRAZOLE 40 MG/10 ML VIAL IV SCH (07:45)
[2018-12-12 08:30] VITALS: BP 185/77
[2018-12-12] MEDS: hydrALAZINE HCL 20 MG/ML VL IV PRN ×2 (09:50→16:25)
[2018-12-12 13:00] VITALS: BP 176/66
[2018-12-12 16:43] VITALS: BP 145/51
[2018-12-12] MEDS: NIFEdipine ER 30 MG TAB PO SCH (17:15)
[2018-12-12 21:30] VITALS: BP 149/63
[2018-12-13] MEDS: ACCU-CHEK COMFORT CURVE STRIP VI SCH ×6 (04:00→21:41)
[2018-12-13] MEDS: InsuLIN REG 1unit/0.01ml Soln (100units/ml) SC SCH ×6 (04:37→20:00)
[2018-12-13 04:39] VITALS: BP 123/56
[2018-12-13] MEDS: traMADol HCL 50 MG TAB PO PRN (04:45)
[2018-12-13] MEDS: INSULIN LANTUS (GLARGINE) 1 /0.01ml (100units/ml) SC SCH (06:16)
[2018-12-13] MEDS: PANTOPRAZOLE 40 MG/10 ML VIAL IV SCH (08:46)
[2018-12-13] MEDS: FUROSEMIDE 20 MG TAB PO SCH (08:47)
[2018-12-13] MEDS: LOSARTAN POTASSIUM 50 MG TAB PO SCH (08:49)
[2018-12-13] MEDS: FLORASTOR (S. BOULARDII) 250 MG CAP PO SCH ×2 (08:49→21:56)
[2018-12-13] MEDS: NIFEdipine ER 30 MG TAB PO SCH (08:50)
[2018-12-13 08:59] VITALS: BP 151/70
[2018-12-13] MEDS: METOPROLOL TARTRATE 50 MG TAB PO SCH ×2 (10:00→21:56)
[2018-12-13 11:56] VITALS: BP 158/65
[2018-12-13] MEDS: cloNIDine HCL 0.1 MG TAB PO PRN (16:41)
[2018-12-13 16:51] VITALS: BP 145/72
[2018-12-13 22:00] VITALS: BP 166/68
[2018-12-14] MEDS: ACCU-CHEK COMFORT CURVE STRIP VI SCH ×4 (00:25→12:00)
[2018-12-14] MEDS: cloNIDine HCL 0.1 MG TAB PO PRN ×3 (00:25→11:52)
[2018-12-14] MEDS: InsuLIN REG 1unit/0.01ml Soln (100units/ml) SC SCH ×4 (04:00→12:29)
[2018-12-14 05:00] VITALS: BP 172/67
[2018-12-14] MEDS: INSULIN LANTUS (GLARGINE) 1 /0.01ml (100units/ml) SC SCH (06:38)
[2018-12-14] MEDS: FUROSEMIDE 20 MG TAB PO SCH (07:54)
[2018-12-14] MEDS: FLORASTOR (S. BOULARDII) 250 MG CAP PO SCH (07:55)
[2018-12-14] MEDS: LOSARTAN POTASSIUM 50 MG TAB PO SCH (07:55)
[2018-12-14] MEDS: NIFEdipine ER 30 MG TAB PO SCH (07:56)
[2018-12-14] MEDS: METOPROLOL TARTRATE 50 MG TAB PO SCH (07:56)
[2018-12-14 07:57] LABS: BUN/Creatinine Ratio 12.3; Calcium 7.5 mg/dL (8.5-10.1); Potassium 4.3 mmol/L (3.5-5.1)
[2018-12-14] MEDS: PANTOPRAZOLE 40 MG/10 ML VIAL IV SCH (07:57)
[2018-12-14 08:11] VITALS: BP 191/78
[2018-12-14 09:10] VITALS: BP 191/78
[2018-12-14 13:00] VITALS: BP 158/74
== END 2018-12-14 15:50 | disposition home or self-care (01) | DRG 280 ==
LOC: EDBD 14:42 → ER 14:46 → TELE 18:33 → ICU WEST 23:29 → DOU IN ICU 12-08 20:55 → TELE-EAST 12-11 18:54
PROVIDERS: ADMIT Nurse Practitioner Acute Care; ATTEND Internal Medicine
PROC: 5A1D70Z Performance of Urinary Filtration, Intermittent, Less than 6 Hours Per Day (ICD-10-PCS; 2018-12-07)
PROC: 4A023N7 Measurement of Cardiac Sampling and Pressure, Left Heart, Percutaneous Approach (ICD-10-PCS; principal; 2018-12-10)
PROC: B2111ZZ Fluoroscopy of Multiple Coronary Arteries using Low Osmolar Contrast (ICD-10-PCS; 2018-12-10)
PROC: B2151ZZ Fluoroscopy of Left Heart using Low Osmolar Contrast (ICD-10-PCS; 2018-12-10)
DX: I21.4 Non-ST elevation (NSTEMI) myocardial infarction (principal); I50.33 Acute on chronic diastolic (congestive) heart failure; E43 Unspecified severe protein-calorie malnutrition; G93.41 Metabolic encephalopathy; N18.6 End stage renal disease; J96.20 Acute and chronic respiratory failure, unspecified whether with hypoxia or hypercapnia; K85.90 Acute pancreatitis without necrosis or infection, unspecified; J18.9 Pneumonia, unspecified organism; E11.10 Type 2 diabetes mellitus with ketoacidosis without coma; N17.9 Acute kidney failure, unspecified; I13.2 Hypertensive heart and chronic kidney disease with heart failure and with stage 5 chronic kidney disease, or end stage renal disease; I42.9 Cardiomyopathy, unspecified; N04.9 Nephrotic syndrome with unspecified morphologic changes; E87.6 Hypokalemia; G40.909 Epilepsy, unspecified, not intractable, without status epilepticus; E11.21 Type 2 diabetes mellitus with diabetic nephropathy; E11.22 Type 2 diabetes mellitus with diabetic chronic kidney disease; E78.1 Pure hyperglyceridemia; D63.1 Anemia in chronic kidney disease; I25.10 Atherosclerotic heart disease of native coronary artery without angina pectoris; D69.6 Thrombocytopenia, unspecified; F17.200 Nicotine dependence, unspecified, uncomplicated; Z79.899 Other long term (current) drug therapy; Z83.3 Family history of diabetes mellitus; Z87.01 Personal history of pneumonia (recurrent); Z87.441 Personal history of nephrotic syndrome; Z88.5 Allergy status to narcotic agent; Z91.19 Patient's noncompliance with other medical treatment and regimen; Z79.4 Long term (current) use of insulin; Z91.14 Patient's other noncompliance with medication regimen; Z99.2 Dependence on renal dialysis; Z90.710 Acquired absence of both cervix and uterus; Z68.25 Body mass index [BMI] 25.0-25.9, adult
CPT/HCPCS: 36415; 36600; 70450; 71045; 80048; 80053; 80061; 80307; 81001; 82010; 82728; 82805; 82962; 83036; 83540; 83550; 83605; 83690; 83735; 83880; 83930; 84100; 84132; 84443; 84484; 85025; 85610; 85730; 87040; 87081; 87086; 90935; 93005; 93306; 96361; 96365; 96375; 97116; 97530; 99152; A6257; C9113; G0378; J0696; J0885; J1642; J1815; J2001; J2250; J3480; J7060; Q9967

== ENCOUNTER 2019-01-25 12:33 | Emergency (ER) | payer MEDICAID ==
[~2019-01-25] VITALS: Ht 160 cm; Wt 49.9 kg
[2019-01-25 12:53] VITALS: BP 198/77
[2019-01-25] MEDS ORDERED: cloNIDine HCL 0.1 MG TAB PO ONE (13:00)
[2019-01-25 14:01] LABS: Albumin 2.5 g/dL (3.4-5.0); BUN/Creatinine Ratio 8.2; Potassium 4.2 mmol/L (3.5-5.1)
[2019-01-25 14:03] LABS: Bilirubin, Total 0.3 mg/dL (0.2-1.0); Total Protein 6.9 g/dL (6.4-8.2)
[2019-01-25 14:07] LABS: Basophils # (auto) 0 uL; Basophils % (auto) 0.9 % (0.0-2.0); Eosinophils # (auto) 0.1 uL; Eosinophils % (auto) 1.6 % (0.0-7.0); Hematocrit 33.6 % (36.0-46.0); Hemoglobin 10.9 g/dL (12.2-16.2); Lymphocytes # (auto) 1.6 uL; Lymphocytes % (auto) 30.5 % (10.0-50.0); Mean Corpuscular Hemoglobin 31.9 pg (28.0-32.0); Mean Corpuscular Hgb Conc. 32.4 g/dL (32.0-36.0); Mean Corpuscular Volume 98.6 fL (80.0-100.0); Monocytes # (auto) 0.5 uL; Monocytes % (auto) 9.3 % (0.0-12.0); Neutrophils % (auto) 57.7 % (37.0-80.0); Nucleated Red Blood Cells % 0.2 %; Platelet Count (auto) 244 10^3/uL (140-450); Red Blood Cells 3.41 10^6/uL (4.0-5.20); Red Cell Distribution Width 17.9 % (11.8-14.3); White Blood Cell 5.2 10^3/uL (4.4-10.8)
== END 2019-01-25 13:58 | disposition left against medical advice (07) ==
LOC: ER 12:33
DX: E16.2 Hypoglycemia, unspecified (principal); Z53.21 Procedure and treatment not carried out due to patient leaving prior to being seen by health care provider
CPT/HCPCS: 36415; 80053; 82962; 85025

== ENCOUNTER 2019-01-30 01:51 | Emergency (ER) | payer MEDICAID ==
[~2019-01-30] VITALS: Ht 160 cm; Wt 61.2 kg
[2019-01-30] MEDS ORDERED: ONDANSETRON HCL 4 MG/2 ML VIAL IV ONE (02:15)
[2019-01-30] MEDS ORDERED: DexAMETHasone SOD PHOS 10MG/1ML VIAL INJ ONE (02:40)
[2019-01-30] MEDS ORDERED: SUCCINYLCHOLINE CHLORIDE 20 MG/ML 10ML VIAL IV ONE ×2 (02:40→02:45)
[2019-01-30] MEDS ORDERED: ETOMIDATE (2MG/ML) 20ML VIAL IV ONE ×2 (02:40→02:45)
[2019-01-30] MEDS ORDERED: PROPOFOL 100 ML IV ONE (02:44)
[2019-01-30] MEDS ORDERED: DexAMETHasone SOD PHOS 10MG/1ML VIAL INJ IV ONE (02:45)
[2019-01-30] MEDS ORDERED: PROPOFOL 100 ML IV SCH ×2 (02:55→03:02)
[2019-01-30] MEDS ORDERED: NICARDIPINE 25MG/250ML BAG KIT 250 ML IV ONE (03:13)
[2019-01-30] MEDS ORDERED: NICARDIPINE 25MG/250ML BAG KIT 250 ML IV SCH (03:15)
[2019-01-30 03:40] LABS: Urine Bacteria FEW /hpf (None Seen); Urine Blood 1+ /uL (Negative); Urine Hyaline Cast FEW /lpf (0 - 2); Urine Specific Gravity 1.016 (1.001-1.035); Urine WBC 75 /hpf (0 - 5)
[2019-01-30 03:44] LABS: Alcohol, Urine < 3.0 mg/dL (0-5); Amphetamine Screen, Urine NEGATIVE (NEGATIVE); Barbiturate Scree,Urine NEGATIVE (NEGATIVE); Benzodiazephine Screen, Urine NEGATIVE (NEGATIVE); Cannabinoid Screen, Urine NEGATIVE (NEGATIVE); Cocaine Screen, Urine NEGATIVE (NEGATIVE); Opiate Scree,Urine NEGATIVE (NEGATIVE); Phencyclidine Screen, Urine NEGATIVE (NEGATIVE)
[2019-01-30] MEDS ORDERED: LEVETIRACETAM INJ 1,000 MG in D5W 5% 100 ML IV ONE (03:45)
[2019-01-30] MEDS ORDERED: LEVETIRACETAM 500 MG/5ML INJ IV ONE (03:51)
[2019-01-30 03:59] LABS: Basophils # (auto) 0 uL; Basophils % (auto) 0.3 % (0.0-2.0); Eosinophils # (auto) 0 uL; Eosinophils % (auto) 0.2 % (0.0-7.0); Hematocrit 31.9 % (36.0-46.0); Hemoglobin 10.5 g/dL (12.2-16.2); Lymphocytes # (auto) 0.8 uL; Lymphocytes % (auto) 14.8 % (10.0-50.0); Mean Corpuscular Hemoglobin 32.6 pg (28.0-32.0); Mean Corpuscular Hgb Conc. 32.9 g/dL (32.0-36.0); Mean Corpuscular Volume 98.9 fL (80.0-100.0); Monocytes # (auto) 0.3 uL; Monocytes % (auto) 6.5 % (0.0-12.0); Neutrophils # (auto) 4.2 uL; Neutrophils % (auto) 78.2 % (37.0-80.0); Platelet Count (auto) 185 10^3/uL (140-450); Red Blood Cells 3.22 10^6/uL (4.0-5.20); Red Cell Distribution Width 17.1 % (11.8-14.3); White Blood Cell 5.4 10^3/uL (4.4-10.8)
[2019-01-30 04:18] LABS: Albumin 2.6 g/dL (3.4-5.0); BUN/Creatinine Ratio 10.8; Calcium 7.5 mg/dL (8.5-10.1); Potassium 3.6 mmol/L (3.5-5.1)
[2019-01-30 04:23] LABS: Bilirubin, Total 0.5 mg/dL (0.2-1.0); Total Protein 6.7 g/dL (6.4-8.2)
[2019-01-30] MEDS ORDERED: InsuLIN REG 1unit/0.01ml Soln (100units/ml) SC ONE (04:30)
[2019-01-30 04:39] LABS: INR 0.95 (0.9-1.15); Partial Thromboplastin Time 26.4 sec (23.78-33.04); Prothrombin Time 10.2 sec (9.27-12.13)
[2019-01-30 05:50] VITALS: BP 133/60
[2019-01-30 05:56] VITALS: BP 136/60
== END 2019-01-30 06:10 | disposition short-term general hospital (02) ==
LOC: EDBD 01:51 → ER 01:59
DX: S06.6X9A Traumatic subarachnoid hemorrhage with loss of consciousness of unspecified duration, initial encounter (principal); S06.5X9A Traumatic subdural hemorrhage with loss of consciousness of unspecified duration, initial encounter; E11.65 Type 2 diabetes mellitus with hyperglycemia; E11.22 Type 2 diabetes mellitus with diabetic chronic kidney disease; I13.2 Hypertensive heart and chronic kidney disease with heart failure and with stage 5 chronic kidney disease, or end stage renal disease; I50.9 Heart failure, unspecified; Z88.5 Allergy status to narcotic agent; N18.6 End stage renal disease; Z79.4 Long term (current) use of insulin; Z79.899 Other long term (current) drug therapy; Z99.2 Dependence on renal dialysis; W19.XXXA Unspecified fall, initial encounter; Y93.89 Activity, other specified; Y99.8 Other external cause status; Y92.89 Other specified places as the place of occurrence of the external cause
CPT/HCPCS: 31500; 36415; 36600; 70450; 71045; 72125; 80053; 80307; 81001; 82805; 83735; 83880; 84443; 84484; 85025; 85379; 85610; 85730; 94761; 96365; 96366; 96368; 96372; 96375; 99285; J0330; J1100; J1815; J1953; J2405; J2704; 94002; 96367; J7060